=== PATIENT | male | born 1970 | race Caucasian/White ===

== ENCOUNTER 2024-09-07 14:24 | Emergency (ER) | payer MEDICARE, MEDICAID, SELFPAY ==
--- NOTE | ~2024-09-07 | CT_ITS ---
EXAMINATION: CT cervical spine wo con DATE: 09/07/2024 16:12 INDICATION: Head injury. TECHNIQUE: Computed tomography (CT) of the cervical spine was performed without intravenous contrast. Automated exposure control and iterative reconstruction technique were employed. The dose-length pro duct was 579.99 mGy-cm. COMPARISON: None FINDINGS: There is 9 degrees dextrocurvature of cervical spine. Vertebral body heights are normal. Th ere is moderately decreased disc height at C3-C4, mildly decreased disc height at C4-C5, and moderate ly decreased disc height at C5-C6 and C6-C7. There is developmental anterior and posterior fusion at C7-T1. There is mild chronic anterior wedging of T2 vertebral body. The following disc levels are spe cifically discussed: C2-C3: There is mild right and moderate left uncovertebral joint osteoarthritis. There is mild left f acet joint osteoarthritis. There is no neural foraminal stenosis. There is no central canal stenosis. C3-C4: There is moderate right and severe left uncovertebral joint osteoarthritis. There is mild bila teral facet joint osteoarthritis. There is moderate left neural foraminal stenosis. There is mild david tral canal stenosis. C4-C5: There is moderate right and severe left uncovertebral joint osteoarthritis. There is mild bila teral facet joint osteoarthritis. There is mild bilateral neural foraminal stenosis. There is mild ce ntral canal stenosis. C5-C6: There is moderate bilateral uncovertebral joint osteoarthritis. There is mild bilateral facet joint osteoarthritis. There is no neural foraminal stenosis. There is mild central canal stenosis. C6-C7: There is mild right and moderate left uncovertebral joint osteoarthritis. There is mild bilate ral facet joint osteoarthritis. There is mild left neural foraminal stenosis. There is mild central c anal stenosis. C7-T1: There is no uncovertebral joint hypertrophy. There is no facet joint osteoarthritis. There is no neural foraminal stenosis. There is no central canal stenosis. IMPRESSION: 1. No fracture. 2. Moderate cervical spondylosis. Reviewed, dictated and finalized at location A. ON JUNCTURE GRINDER
--- NOTE | ~2024-09-07 | CT_ITS ---
EXAMINATION: CT brain wo con DATE: 09/07/2024 16:13 INDICATION: fall, unknown [place] . TECHNIQUE: Computed tomography (CT) of the head was performed without intravenous contrast. The mA wa s adjusted according to patient size. Iterative reconstruction technique was employed. The dose-lengt h product was 681.00 mGy-cm. COMPARISON: 08/24/2024. FINDINGS: No acute intracranial hemorrhage or extra-axial fluid collection. No hydrocephalus, mass, or herniation. No acute ischemic infarct. Unremarkable dural venous sinus attenuation. No acute osseous abnormality. Bilateral maxillary retention cysts/polyps, mild left maxillary mucosal thickening, the remaining aer ated spaces are clear. Mild atrophy and chronic white matter change. Atherosclerotic intracranial calcification. Moderate ce rebellar atrophy. IMPRESSION: No acute intracranial process. Moderate cerebellar atrophy. Reviewed, dictated and finalized at location K. 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
--- NOTE | ~2024-09-07 | CT_ITS ---
EXAMINATION: CT thoracic lumbar wo con DATE: 09/07/2024 16:13 INDICATION: Back pain post fall TECHNIQUE: Computed tomography (CT) of the thoracic and lumbar spine was performed without intravenou s contrast. Automated exposure control and iterative reconstruction technique were employed. The dose -length product was 2289.51 mGy-cm. COMPARISON: Chest CT and lumbar spine CT both dated 08/24/2024 FINDINGS: Thoracic spine: Mild lower thoracic kyphosis with chronic mild anterior wedging at T7-T12. There is likely developmen jason anterior and posterior fusion at C7-T1. Multilevel moderate disc height loss at the majority leve ls throughout the thoracic spine with mild disc height loss at a few of the remaining levels. There a re bridging osteophytes at multiple levels consistent with diffuse idiopathic skeletal hyperostosis ( DISH). No acute fracture in the spine. Multiple chronic posterior right rib fractures which are in v arying degrees of healing. Is also an old healed fractures of the posterior left eighth-10th ribs. Un changed small left pleural effusion with thickening of the parietal pleura and associated peripheral atelectasis/scarring at the left lower lobe and lingula. Lumbar spine: 7 degrees lumbar levocurvature. Sagittal alignment is normal. Vertebral body heights are normal. No a cute fracture. Disc heights are normal. 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 Multilevel mild to moderate lumbar facet osteoarthritis and mild to moderate associated neural foraminal stenosis at a few levels . See prior lumbar spine report for level by level analysis. There is fusion across the bilateral sac roiliac joints. 3 mm left renal stone. IMPRESSION: 1. Moderate thoracic and mild lumbar spondylosis. No acute osseous abnormality. 2. Chronic bilateral rib fractures some of which on the right are in varying degrees of healing. No a cute osseous abnormality in the thoracic or lumbar spine. Reviewed, dictated and finalized at location A. OARD INSTRUMENT TUNER IMPRESSION: 1. Moderate thoracic and mild lumbar spondylosis. No acute osseous abnormality. 2. Chronic bilateral rib fractures some of which on the right are in varying de grees of healing. No acute osseous abnormality in the thoracic or lumbar spine.
[2024-09-07 14:29] VITALS: BP 160/77; PULSE 83; RESP 16; TEMP 36.3; O2SAT 100
--- NOTE | 2024-09-07 15:20 | ED_ITS ---
HPI - Back Pain/Injury General Chief Complaint: Back Pain/Injury <Emely Castro PA-C - Last Filed: 09/07/24 15:34> Stated Complaint: fall-back pain <Emely Castro PA-C - Last Filed: 09/07/24 15:34> Time Seen by Provider: 09/07/24 15:20 <Emely Castro PA-C - Last Filed: 09/07/24 15:34> Focused HPI: Patient is a 54 y/o male, with PMH of bipolar disorder, epilepsy, CVA, who presents to the ED via EMS with report of a fall. Patient is a resident of [facility]. Is a poor historian. Reportedly had a ground level fall today in which he was using his walker and fell backwards. Patient states he lost his balance. Complains of pain to his mid to lower back. Unsure if he hit his head. Denies LOC. Denies any other injuries. No blood thinners noted on med rec. GENERAL: Chronically ill appearing, appears older than stated age, morbidly obese, and in no acute distress. HEAD: Normocephalic, atraumatic. CHEST: Clear to auscultation. ?No respiratory distress. HEART: Regular rate and rhythm.? NEURO: ?Alert and oriented x2-3, unsure of year, knows it is August. No appreciable gross focal deficits. Moves all extremities equally. Intermittently somnolent. Patient screened in triage and initial orders placed.? ?Additional care and disposition to be based upon?diagnostic testing and treatment. <Emely Castro PA-C - Last Filed: 09/07/24 15:34> Source: patient, EMS and RN notes reviewed <Emely Castro PA-C - Last Filed: 09/07/24 15:34> Mode of arrival: EMS <Emely Castro PA-C - Last Filed: 09/07/24 15:34> Limitations: no limitations and other (poor historian) <Emely Castro PA-C - Last Filed: 09/07/24 15:34> History of Present Illness HPI Narrative: Agree with the above HPI <Dorian Olson MD - Last Filed: 09/07/24 21:30> Related Data Home Medications: Home Medications ?Medication ?Instructions ?Recorded ?Confirmed ?Last Taken ?Type acetaminophen 325 mg tablet (Mapap 325 mg PO Q6H PRN 04/28/20 Unknown History (acetaminophen)) albuterol sulfate 90 mcg/actuation 1 inh inhalation Q4H 04/28/20 Unknown History aerosol inhaler (Ventolin HFA) brimonidine 0.1 % eye drops 1 drp ophthalmic (eye) Q8H 04/28/20 Unknown History (Alphagan P) buspirone 15 mg tablet 15 mg PO BID 04/28/20 Unknown History clobazam 10 mg tablet 10 mg PO BID 04/28/20 Unknown History divalproex 500 mg tablet,delayed 500 mg PO Q12H 04/28/20 Unknown History release docusate sodium 100 mg tablet 100 mg PO BID 04/28/20 Unknown History duloxetine 60 mg capsule,delayed 60 mg PO DAILY 04/28/20 Unknown History release ergocalciferol (vitamin D2) 50 mcg 50 mcg PO DAILY 04/28/20 Unknown History (2,000 unit) capsule ibuprofen 800 mg tablet 800 mg PO TID 04/28/20 Unknown History ketoconazole 2 % topical cream 1 applic topical BID 04/28/20 Unknown History lamotrigine 25 mg tablet 75 mg PO BID 04/28/20 Unknown History latanoprost 0.005 % eye drops 1 drp ophthalmic (eye) DAILY 04/28/20 Unknown History lubiprostone 24 mcg capsule 24 mcg PO BID 04/28/20 Unknown History (Amitiza) nystatin 100,000 unit/mL oral 1 ml PO DAILY 04/28/20 Unknown History suspension omeprazole 20 mg capsule,delayed 20 mg PO DAILY 04/28/20 Unknown History release oxcarbazepine 600 mg tablet 600 mg PO BID 04/28/20 Unknown History polyethylene glycol 3350(bulk) ea miscellaneous 04/28/20 Unknown History (Base B, Polyethylene Glycol 3350 granules) pravastatin 10 mg tablet 10 mg PO DAILY 04/28/20 Unknown History risperidone 1 mg tablet (Risperdal) 1 mg PO BID 04/28/20 Unknown History triamcinolone acetonide 0.1 % 1 applic dental BID 04/28/20 Unknown History dental paste varenicline tartrate 0.5 mg tablet 0.5 mg PO DAILY 04/28/20 Unknown History (Chantix) <Emely Castro PA-C - Last Filed: 09/07/24 15:34> Allergies/Adverse Reactions: Allergies Allergy/AdvReac Type Severity Reaction Status Date / Time No Known Allergies Allergy Verified 09/07/24 15:49 <Emely Castro PA-C - Last Filed: 09/07/24 15:34> Review of Systems Review of Systems: All systems reviewed & are unremarkable except as noted in HPI and below <Dorian Olson MD - Last Filed: 09/07/24 21:30> Exam Narrative: APPEARANCE: Well appearing, no pain, no distress, well-nourished. HEAD: normocephalic, atraumatic. EYES: PERRLA/EOMI, conjunctivae clear. NOSE: Normal no drainage EARS:TMS clear with good light reflex. THROAT: Pharynx clear, no exudate. NECK: Supple. No adenopathy, no masses. RESPIRATORY: Airway patent, respirations nonlabored. Clear to auscultation bilaterally, no rales, rhonchi, wheezing. CARDIOVASCULAR: Regular rate and rhythm without murmurs rubs or gallops. ABDOMINAL: Soft, nontender, nondistended, normal bowel sounds MUSCULOSKELETAL: Moves all extremities. Strength/ROM intact, No edema, No calf tenderness. NEURO: Alert. Cranial nerves II through XII intact. Grossly intact SKIN: Warm, dry. Normal Color <Dorian Olson MD - Last Filed: 09/07/24 21:30> Course Vital Signs Vital signs: Vital Signs Temperature 97.3 F L 09/07/24 14:29 Pulse Rate 83 09/07/24 14:29 Respiratory Rate 16 09/07/24 14:29 Blood Pressure 160/77 H 09/07/24 14:29 Pulse Oximetry 100 09/07/24 14:29 Temperature 97.3 F L 09/07/24 14:29 Pulse Rate 77 09/07/24 18:38 Respiratory Rate 20 09/07/24 18:38 Blood Pressure 161/91 H 09/07/24 18:38 Pulse Oximetry 98 09/07/24 18:38 <Emely Castro PA-C - Last Filed: 09/07/24 15:34> Vital Signs Temperature 97.3 F L 09/07/24 14:29 Pulse Rate 83 09/07/24 14:29 Respiratory Rate 16 09/07/24 14:29 Blood Pressure 160/77 H 09/07/24 14:29 Pulse Oximetry 100 09/07/24 14:29 Temperature 97.3 F L 09/07/24 14:29 Pulse Rate 77 09/07/24 18:38 Respiratory Rate 20 09/07/24 18:38 Blood Pressure 161/91 H 09/07/24 18:38 Pulse Oximetry 98 09/07/24 18:38 <Dorian Olson MD - Last Filed: 09/07/24 21:30> MDM - Back Pain/Injury MDM Narrative Medical decision making narrative: MSE by ANGIE in triage. <Emely Castro PA-C - Last Filed: 09/07/24 15:34> MSE by ANGIE in triage. 54-year-old male present to the emergency department for evaluation after having a mechanical fall. Patient was able to ambulate at his baseline with a walker. Imaging was negative for acute fracture dislocation. Patient will be discharged back to his care facility. <Dorian Olson MD - Last Filed: 09/07/24 21:30> Differential Diagnosis Differential diagnosis: Likely lumbar radiculopathy, sciatica, strain of lumbar region, pyelonephritis and thoracic back pain <Dorian Olson MD - Last Filed: 09/07/24 21:30> Imaging Data Radiologist's impression: Impressions Head CT 09/07/24 16:14 IMPRESSION: No acute intracranial process. Moderate cerebellar atrophy. Cervical Spine CT 09/07/24 16:15 IMPRESSION: 1. No fracture. 2. Moderate cervical spondylosis. Thoracic/Lumbar Spine CT 09/07/24 16:20 IMPRESSION: 1. Moderate thoracic and mild lumbar spondylosis. No acute osseous abnormality. 2. Chronic bilateral rib fractures some of which on the right are in varying degrees of healing. No acute osseous abnormality in the thoracic or lumbar spine. <Dorian Olson MD - Last Filed: 09/07/24 21:30> Discharge Plan Discharge Clinical Impression: Back pain <Emely Castro PA-C - Last Filed: 09/07/24 15:34> Patient Disposition: Home, Self-Care <MONICA Cordon Last Filed: 09/07/24 15:34> Condition: Stable <MONICA Cordon Last Filed: 09/07/24 15:34> Instructions: Antibiotic Form, Back Pain (ED) <MONICA Cordon Last Filed: 09/07/24 15:34> Additional Instructions: Continue to use your walker when ambulating. Have close follow-up with your primary care physician <MONICA Cordon Last Filed: 09/07/24 15:34> Patient Language: Mohawk <MONICA Cordon Last Filed: 09/07/24 15:34> Prescriptions: No Action polyethylene glycol 3350(bulk) [Base B,Polyethylene [id number]] Granules miscellaneous albuterol sulfate [Ventolin HFA] 90 mcg/actuation HFA aerosol inhaler 1 inh inhalation Q4H ibuprofen 800 mg tablet 800 mg PO TID acetaminophen [Mapap (acetaminophen)] 325 mg tablet 325 mg PO Q6H PRN latanoprost 0.005 % drops 1 drp ophthalmic (eye) DAILY pravastatin 10 mg tablet 10 mg PO DAILY risperidone [Risperdal] 1 mg tablet 1 mg PO BID triamcinolone acetonide 0.1 % paste 1 applic dental BID Rx Instructions: use after food and/or drink and/or oral hygiene Alphagan P 0.1 % drops 1 drp ophthalmic (eye) Q8H oxcarbazepine 600 mg tablet 600 mg PO BID Chantix 0.5 mg tablet 0.5 mg PO DAILY Rx Instructions: administer on days 1, 2, and 3 of therapy clobazam 10 mg tablet 10 mg PO BID divalproex 500 mg tablet,delayed release (DR/EC) 500 mg PO Q12H docusate sodium 100 mg tablet 100 mg PO BID ketoconazole 2 % cream 1 applic topical BID lamotrigine 25 mg tablet 75 mg PO BID nystatin 100,000 unit/mL suspension 1 ml PO DAILY Rx Instructions: swish and swallow duloxetine 60 mg capsule,delayed release(DR/EC) 60 mg PO DAILY omeprazole 20 mg capsule,delayed release(DR/EC) 20 mg PO DAILY ergocalciferol (vitamin D2) 50 mcg (2,000 unit) capsule 50 mcg PO DAILY Amitiza 24 mcg capsule 24 mcg PO BID buspirone 15 mg tablet 15 mg PO BID <Emely Castro PA-C - Last Filed: 09/07/24 15:34> Follow-up/Referrals: Yves,Ebonie Argueta MD [Primary Care Provider] - <Emely Castro PA-C - Last Filed: 09/07/24 15:34>
--- OUTSIDE RECORDS SUMMARY | 2024-09-07 17:10 | XMS_ITS | Clinical Summary ---
Author Organization [facility] Address [address] [place] [address] Care Team Providers Care Schedule Announcer Name Role Phone Star Pinto NP Primary Care Provider [phone] Allergies Active Allergy Reactions Criticality Noted Date Comments Prochlorperazine Unknown 05/26/2024 Listed on halfway papers. [place] Unknown 11/23/2021 Medications duloxetine 60 MG capsule Take 1 capsule (60 mg total) by mouth daily. Active omeprazole 20 MG capsule Take 1 capsule (20 mg total) by mouth daily. Active latanoprost 0.005 % ophthalmic solution Place 1 drop into both eyes nightly at bedtime. Active albuterol sulfate HFA 108 (90 Base) MCG/ACT inhaler Inhale 2 puffs into the lungs every 4 (four) hours as needed for Wheezing or Shortness of breath. Active polyethylene glycol packet Take 240 mLs (17 g total) by mouth daily as needed for Constipation. Dissolve powder in 240 mL water Active acetaminophen 325 MG tablet Take 2 tablets (650 mg total) by mouth every 4 (four) hours as needed for Pain. Active Vitamin D, Ergocalciferol, 50794 units capsuleIndicatio ns:Takes on . Take 1 capsule (1.25 mg total) by mouth once a week. Indications: Takes on . On Active brimonidine 0.1 % Solution Place 1 drop into both eyes 3 (three) times a day. Active OXcarbazepine 600 MG Tab tablet Take 1 tablet (600 mg total) by mouth 3 (three) times daily. Active busPIRone 15 MG tablet Take 1 tablet (15 mg total) by mouth 2 (two) times daily with meals. 9 Active cloBAZam 10 MG tablet Take 0.5 tablets (5 mg total) by mouth every morning. 2 Active lamoTRIgine (LAMICTAL) 100 MG tablet Take 1 tablet (100 mg total) by mouth 2 (two) times daily. Active nystatin (MYCOSTATIN) cream Apply topically 2 (two) times a day. Mix with Ottoniel's Vaporub and apply to feet Active vitamin C (ASCORBIC ACID) 500 MG tablet Take 1 tablet (500 mg total) by mouth 2 (two) times daily. Active docusate sodium (COLACE) 100 MG capsule Take 1 capsule (100 mg total) by mouth 2 (two) times daily. Active linaCLOtide (LINZESS) 145 MCG capsule Take 1 capsule (145 mcg total) by mouth every morning before breakfast. Take on empty stomach at least 30 minutes prior to the first meal of the day. Swallow whole. Do not open capsule or chew. Active Multiple Vitamin (MULTIVITAMIN) Tab Take 1 tablet by mouth daily. 4 Active risperiDONE (RISPERDAL) 1 MG tablet Take 1 tablet (1 mg total) by mouth 3 (three) times daily. 4 Active losartan (COZAAR) 25 MG tablet Take 1 tablet (25 mg total) by mouth daily. 30 tablet 4 Active divalproex ER (DEPAKOTE) 500 MG 24 hr tablet Take 1 tablet (500 mg total) by mouth 2 (two) times a day. Total dose = 750 mg twice daily 4 Active amLODIPine (NORVASC) 10 MG tablet Take 1 tablet (10 mg total) by mouth daily. 30 tablet 3 4 Active aspirin EC (ECOTRIN) 81 MG tablet Take 1 tablet (81 mg total) by mouth daily. 30 tablet 3 4 Active atorvastatin (LIPITOR) 40 MG tablet Take 1 tablet (40 mg total) by mouth daily. 30 tablet 3 4 Active Additional Information Patient taking differently:40 mg OralDaily with supper, Reported on 05/30/2024 budesonide-formo terol (SYMBICORT) 80-4.5 MCG/ACT inhalerIndicatio ns:Shortness of breath Inhale 2 puffs into the lungs 2 (two) times daily. Rinse and spit after use 10.2 g 3 Active chlorhexidine (DIEGO-HEX 4) 4 % Solution Apply topically daily. Cleanse third toe on left foot daily. Active ALGINATE, SILVER IMPREGNATED - WOUND CARE, DME, 1 Package by Does not apply route daily. Apply to left great toe daily. Cover with gauze then secure with tape. Active cloBAZam (ONFI) 10 MG tablet Take 1 tablet (10 mg total) by mouth daily before supper. Active divalproex ER (DEPAKOTE) 250 MG 24 hr tablet Take 1 tablet (250 mg total) by mouth 2 (two) times a day. Total dose = 750 mg twice daily Active ibuprofen (MOTRIN) 600 MG tablet Take 1 tablet (600 mg total) by mouth every 6 (six) hours as needed for Pain. Not to exceed 4 doses in 24 hours. Active neomycin-bacitra rosa elena-polymyxin (NEOSPORIN) 3.5-400-5000 ointment Apply topically daily. Apply a small amount to left great toe and left 3rd toe daily. Isak left great toe and 2nd toe at all times due to fracture. Active hydrogen peroxide 3 % external solution Apply topically daily. Cleanse left great toe daily. Active lidocaine 4 % patch Place 1 patch onto the skin daily. Remove & Discard patch within 12 hours or as directed by MD 30 patch Active sodium chloride 1 GM tablet Take 2 tablets (2 g total) by mouth 3 (three) times daily with meals. 90 tablet 4 Active Active Problems Problem Noted Date Diagnosed Date Hyponatremia 06/01/2024 Generalized weakness 05/30/2024 Lethargy 09/30/2023 Severe sepsis ([facility]) 06/05/2023 Seizure ([facility]) 03/07/2023 Pneumonia 03/04/2023 Generalized anxiety disorder 11/15/2021 Impaired cognition 11/15/2021 Moderate intellectual disability 11/15/2021 Overview (06/06/2023): April 2023 Regulatory Update Open-angle glaucoma 11/15/2021 Fracture treatment convalescence or palliative c are 08/03/2021 Right tibial fracture 06/17/2021 Closed fracture of proximal end of left tibia with routine healing 06/16/2021 Fall 06/16/2021 Tremor 01/15/2021 Macrocytosis 09/14/2020 Localization-related (focal) (partial) symptomatic epilepsy and epileptic syndromes with complex partial seizures, intractable, without status epilepticus ([facility]) 03/24/2019 Bipolar affective ([facility]) 08/05/2013 Encounters Date Type Department Care Team Description 05/30/2024 3:06 PM NOCTURNIST PHYSICIAN - 06/12/2024 12:50 PM NOCTURNIST PHYSICIAN Hospital Encounter [facility] [address] [place] [address] Keya Beverly PA Islam, Maaroof, MD Wolf, Brittany, PA-C Smith, Marissa L, NP Conti, John R, PA-C Martens, Jennifer L, YANA Fall Discharge Disposition: Jail Facility from Last 3 Months Immunizations Name Administration Dates Next Due Fluzone Intradermal Quad (IIV4) 05/02/2019 Influenza (Afluria - Preservative Free) 06/24/20 17 Influenza (Generic) 07/31/2016 Influenza Adult (Generic) 04/17/2019,04/17/2018, 04/25/2015 Tdap (Adacel) 07/31/2016 Tdap (Boostrix) 03/30/2022,11/20/2021,08/13/2017 Social History Tobacco Use Types Packs/Day Years Used Date Smoking Tobacco: Former Cigarettes 1 5 1 08/16/2015 - 06/16/2021 Smokeless Tobacco: Never Tobacco Cessation:Counseling Given: Yes Alcohol Use Standard Drinks/Week Comments No 0 (1 standard drink = 0.6 oz pur e alcohol) B1300 Health Literacy Answer Date Recor ded How often do you need to hav e someone help you when you read instructions, pamphlets, or other written material from your doctor or pharmacy? Often 05/30/2024 [facility] Utilities Answer Date Recorded In the past 12 months has th e [employer], gas, oil, or water company threatened to shut off services in your home? No 05/30/2024 Humiliation, Afraid, Rape, and Kick questionnair e Answer Date Recorded Within the last year, have y ou been afraid of your partner or ex-partner? No 05/30/2024 Within the last year, have y ou been humiliated or emotionally abused in other ways by your partner or ex-partner? No Within the last year, have y ou been kicked, hit, slapped, or otherwise physically hurt by your partner or ex-partner? No 05/30/2024 Within the last year, have y ou been raped or forced to have any kind of sexual activity by your partner or ex-partner? No 05/30/2024 Social Connection and Isolation Panel [NHANES] A nswer Date Recorded In a typical week, how many times do you talk on the phone with family, friends, or neighbors? Twice a week 05/30/2024 How often do you get together with friends or re latives? Twice a week 05/30/2024 How often do you attend cheondoism or voodoo serv ices? Never 05/30/2024 Do you belong to any clubs o r organizations such as cheondoism groups, unions, fraternal or athletic groups, or school groups? No 05/30/2024 How often do you attend meet ings of the clubs or organizations you belong to? Never 05/30/2024 Are you , , di vorced, , never , or living with a partner? Never 05/30/2024 AUDIT-C Answer Date Recorded Q1: How often do you have a drink containing alcohol? Never 05/30/2024 Q2: How many drinks containi ng alcohol do you have on a typical day when you are drinking? Patient does not drink Q3: How often do you have si x or more drinks on one occasion? Never 05/30/2024 Overall Financial Resource Strain (CARDIA) Answe r Date Recorded How hard is it for you to pa y for the very basics like food, housing, medical care, and heating? Not hard at all 05/30/2024 PHQ-2 Answer Date Recorded Patient Health Questionnaire-2 Score 0 04/16/2024 [facility] - Occupational Stress Questionnaire Answer Date Recorded Do you feel stress - tense, restless, nervous, or anxious, or unable to sleep at night because your mind is troubled all the time - these days? Not at all 05/30/2024 Exercise Vital Sign Answer Date Recorde d On average, how many days pe r week do you engage in moderate to strenuous exercise (like a brisk walk)? 0 days 05/30/2024 On average, how many minutes do you engage in exercise at this level? 0 min 05/30/2024 Hunger Vital Sign Answer Date Recorded Within the past 12 months, y ou worried that your food would run out before you got the money to buy more. Never true 05/30/20 24 Within the past 12 months, t he food you bought just didn't last and you didn't have money to get more. Never true 05/30/2024 PRAPARE - Transportation Answer Date Re corded In the past 12 months, has l ack of transportation kept you from medical appointments or from getting medications? No 03/2024 In the past 12 months, has l ack of transportation kept you from meetings, work, or from getting things needed for daily living? No 05/30/2024 Housing Stability Vital Sign Answer Dennis e Recorded In the last 12 months, was t here a time when you were not able to pay the mortgage or rent on time? No 09/30/2023 In the last 12 months, how many places have you lived? 1 09/30/2023 In the last 12 months, was t here a time when you did not have a steady place to sleep or slept in a longterm (including now)? No 09/30/2023 Housing Stability Vital Sign Answer Dennis e Recorded In the last 12 months, was t here a time when you were not able to pay the mortgage or rent on time? No 05/30/2024 In the past 12 months, how m any times have you moved where you were living? 0 05/30/2024 At any time in the past 12 m [place], were you homeless or living in a longterm (including now)? No 05/30/2024 Sex and Gender Information Value Date Recorded Sex Assigned at Male 06/06/2023 3:22 AM NOCTURNIST PHYSICIAN Legal Sex Male 5:06 PM CDT Gender Identity Male 06/06/2023 3:22 AM NOCTURNIST PHYSICIAN Sexual Orientation Not on file Last Filed Vital Signs Vital Sign Reading Time Taken Comments Blood Pressure 135/67 06/12/2024 12:00 PM NOCTURNIST PHYSICIAN Pulse 66 06/12/2024 12:00 PM NOCTURNIST PHYSICIAN Temperature 36.9 C (98.4 F) 06/12/2024 12:00 PM NOCTURNIST PHYSICIAN Respiratory Rate 19 06/12/2024 12:00 PM NOCTURNIST PHYSICIAN Oxygen Saturation 99% 06/12/2024 12:00 PM NOCTURNIST PHYSICIAN Inhaled Oxygen Concentration - - Weight 154 kg (339 lb 8.1 oz) 06/08/2024 5:00 AM NOCTURNIST PHYSICIAN Height 175.3 cm (5' 9 ) 05/30/2024 3:09 PM NOCTURNIST PHYSICIAN Body Mass Index 50.14 05/30/2024 3:09 PM NOCTURNIST PHYSICIAN Plan of Treatment Upcoming Encounters Date Type Department Care Team (Late st Contact Info) Description 10/22/2024 10:40 AM CDT Office Visit [facility] [address] [place] [address] Star Robles MD [address] [place] [address] 11/18/2024 10:00 AM CDT Office Visit [facility] [address] [place] [address] Bayron Roa MD [address] [facility] [place] [address] Health Maintenance Due Date Last Done Comments Colorectal Cancer Screening Colonoscopy (10 Years) 1972 Kidney Health Evaluation 1972 Annual Physical 1975 Pneumococcal Vaccine: Pediatrics (0 to 5 Years) and At-Risk Patients (6 to 64 Years) (1 of 2 - PCV) 1978 Diabetes: Retinopathy Eye Exam 1990 Hepatitis C 1990 Hepatitis B Vaccines (1 of 3 - 19+ 3-dose series) 1991 Zoster Vaccines (1 of 2) 2022 COVID-19 Vaccine ( - season) 2024 Influenza Adult (#1) 2024 05/02/2019, 04/17/2019, 04/17/2018, Additional history exists PHQ-2 (Physician [place]) 07/22/2024 04/16/2024 Hemoglobin A1C 11/28/2024 05/31/2024, 09/30/2023 PHQ-2 (Physician [place]) 04/16/2025 04/16/2024 Lipid Panel 05/31/2025 05/31/2024, 12/21, 10/01/2023 DTaP, Tdap and Td Vaccines (5 - Td or Tdap) 03/30/2032 03/30/2022, 11/20/2021, 08/13/2017, Additional history exists Meningococcal B Vaccine Aged Out No l onger eligible based on patient's age to complete this topic Meningococcal Vaccine Aged Out No bo yesy eligible based on patient's age to complete this topic RSV Immunizations Under 20 Months Aged Out No longer eligible based on patient's age to complete this topic Goals Goal Patient Goal Type Associated Problems Recent Progress Patient-Stated? Author Family - family caregiver with be involved in care transitions and discharge planning Lifestyle No Tami Choi, HOTEL RESERVATION AGENT Safety Patient/family will have appropriate support at home upon discharge Lifestyle No Edin Peters, hose seamer Procedure Name Priority Date/Time Associated Diagnosis Comments BASIC METABOLIC PANEL Routine 06/12/2024 4:45 AM NOCTURNIST PHYSICIAN CBC W/DIFF AUTOMATED Routine 06/12/2024 4:45 AM NOCTURNIST PHYSICIAN BASIC METABOLIC PANEL Routine 06/11/2024 5:30 AM NOCTURNIST PHYSICIAN CBC W/DIFF AUTOMATED Routine 06/11/2024 5:30 AM NOCTURNIST PHYSICIAN BASIC METABOLIC PANEL Routine 06/10/2024 5:00 AM NOCTURNIST PHYSICIAN CBC W/DIFF AUTOMATED Routine 06/10/2024 5:00 AM NOCTURNIST PHYSICIAN CBC W/DIFF AUTOMATED Routine 06/09/2024 5:10 AM NOCTURNIST PHYSICIAN BASIC METABOLIC PANEL Routine 06/09/2024 5:10 AM NOCTURNIST PHYSICIAN CBC W/DIFF AUTOMATED Routine 06/08/2024 4:20 AM NOCTURNIST PHYSICIAN BASIC METABOLIC PANEL Routine 06/08/2024 4:20 AM NOCTURNIST PHYSICIAN CBC W/DIFF AUTOMATED Routine 06/07/2024 4:00 AM NOCTURNIST PHYSICIAN BASIC METABOLIC PANEL Routine 06/07/2024 4:00 AM NOCTURNIST PHYSICIAN LIPID PANEL Routine 05/31/2024 8:35 AM NOCTURNIST PHYSICIAN HEMOGLOBIN, GLYCOSYLATED Routine 05/31/2024 8:35 AM NOCTURNIST PHYSICIAN from Last 3 Months or Most Recently Relevant to Health Maintenance Results * (ABNORMAL) BASIC METABOLIC PANEL (06/12/2024 4:45 AM NOCTURNIST PHYSICIAN) Only the most recent of6 resultswithin the time period is included. [facility] Signature GLUCOSE 83 70 - 99 MG/DL 06/12/2024 5:37 AM NOCTURNIST PHYSICIAN [facility] BUN 18 7 - 18 MG/DL 06/12/2024 5:37 AM NOCTURNIST PHYSICIAN [facility] CREATININE S/P/B 0.71 0.7 - 1.3 MG/DL 06/12/2024 5:37 AM NOCTURNIST PHYSICIAN [facility] SODIUM S/P/B 127(L) 136 - 145 MMOL/L 06/12/2024 5:37 AM NOCTURNIST PHYSICIAN [facility] POTASSIUM S/P/B 4.5 3.5 - 5.1 MMOL/L 06/12/2024 5:37 AM [facility] CHLORIDE S/P/B 95(L) 97 - 115 MMOL/L 06/12/2024 5:37 AM [facility] CO2 25.6 21 - 32 MMOL/L 06/12/2024 5:37 AM [facility] CALCIUM S/P/B 8.8 8.5 - 10.1 MG/DL 06/12/2024 5:37 AM [facility] ANION GAP 6.4 2 - 10 MMOL/L 06/12/2024 5:37 AM [facility] BUN CREATININE RATIO 25.3 6 - 26 06/12/2024 5:37 AM [facility] GFR ESTIMATE >90 >90 ML/MIN/1.7 3 M2 06/12/2024 5:37 AM [facility] Comment: NOTE: eGFR is not calculated for patients <18 years of age or gender unknown. This is an estimated GFR calculation using the new CKD EPI creatinine equation without race and so does not require a correction factor for race. This estimated GFR should not be used for calculating drug doses. 06/12/2024 4:45 AM NOCTURNIST PHYSICIAN Tahmina Dominique PA-C LABORATORY Final Result [facility] [address] [place] [address], * (ABNORMAL) CBC W/DIFF AUTOMATED (06/12/2024 4:45 AM NOCTURNIST PHYSICIAN) Only the most recent of6 resultswithin the time period is included. WBC 8.29 4.5 - 11.0 x10'3/uL 06/12/2024 5:56 AM NOCTURNIST PHYSICIAN [facility] RBC 3.49(L) 4.70 - 6.10 x10'6/uL 06/12/2024 5:56 AM [facility] HGB 10.3(L) 14.0 - 18.0 G/DL 06/12/2024 5:56 AM [facility] HCT 31.7(L) 43.0 - 54.0 % 06/12/2024 5:56 AM [facility] MCV 90.8 80.0 - 94.0 FL 06/12/2024 5:56 AM [facility] MCH 29.5 27.0 - 31.0 PG 06/12/2024 5:56 AM [facility] MCHC 32.5 32.0 - 36.0 G/DL 06/12/2024 5:56 AM [facility] RDW 15.9(H) 11.5 - 14.5 % 06/12/2024 5:56 AM [facility] PLT 240 130 - 400 x10'3/uL 06/12/2024 5:56 AM [facility] MPV 8.0(L) 9.3 - 12.2 FL 06/12/2024 5:56 AM [facility] DIFFERENTIAL TYPE AUTOMATED DIFFERENTIAL 06/12/2024 5:56 AM [facility] NEUTROPHILS % 52.7 % 06/12/2024 5:56 AM [facility] LYMPHOCYTES % 29.1 % 06/12/2024 5:56 AM [facility] MONOCYTES % 13.1 % 06/12/2024 5:56 AM [facility] EOSINOPHILS 4.1 % 06/12/2024 5:56 AM [facility] BASOPHILS 0.5 % 06/12/2024 5:56 AM [facility] IMMATURE GRANS % 0.5 % 06/12/20 5:56 AM NOCTURNIST PHYSICIAN [facility] ABS. NEUTROPHILS 4.37 1.80 - 7.70 x10'3/uL 06/12/2024 5:56 AM [facility] ABS. LYMPHOCYTES 2.41 1.00 - 4.80 x10'3/uL 06/12/2024 5:56 AM [facility] ABS. MONOCYTES 1.09(H) 0.30 - 0.82 x10'3/uL 06/12/2024 5:56 AM [facility] ABS. EOSINOPHILS 0.34 0.04 - 0.54 x10'3/uL 06/12/2024 5:56 AM [facility] ABS. BASOPHILS 0.04 0.01 - 0.08 x10'3/uL 06/12/2024 5:56 AM [facility] ABS. IMMATURE GRANULOCYTES 0.04 0.00 - 0.49 x10'3/uL 06/12/2024 5:56 AM [facility] 06/12/2024 4:45 AM NOCTURNIST PHYSICIAN Tahmina Dominique PA-C LABORATORY Final Result [facility] [address] [place] [address], * HEMOGLOBIN, GLYCOSYLATED (05/31/2024 8:35 AM NOCTURNIST PHYSICIAN) HGB A1C 5.6 <5.7 % 05/31/2024 9:25 AM [facility] Comment: ADA GUIDELINES 2010 5.7 TO 6.4% INCREASED RISK OF DIABETES > OR = 6.5% CONSISTENT WITH DIABETES ESTIMATED AVG GLUCOSE 114 mg/dL 05/31/2024 9:25 AM [facility] 05/31/2024 8:35 AM NOCTURNIST PHYSICIAN Heber Rodrigez MD LABORATORY Final Result [facility] [address] [place] [address], * LIPID PANEL (05/31/2024 8:35 AM NOCTURNIST PHYSICIAN) CHOLESTEROL 149 <200 MG/DL 05/31/2024 9:37 AM [facility] TRIGLYCERIDES 135 <150 MG/DL 05/31/2024 9:37 AM [facility] HDL 67 >40.0 MG/DL 05/31/2024 9:37 AM [facility] LDL (CALCULATED) 55 <100 MG/DL 05/31/20 9:37 AM [facility] NON HDL CHOLESTEROL 82 <130 MG/DL 05/31 9:37 AM [facility] CHOL/HDL RATIO 2.2 0.0 - 4.5 05/31/2024 9:37 AM [facility] VLDL CALCULATION 27 5 - 55 MG/DL 05/31/2024 9:37 AM [facility] LIPID INTERPRETATION 05/31/2024 9:37 AM [facility] Comment: NIH CONCENSUS REPORT RECOMMENDATIONS: ADULT CHILD LOW RISK: CHOLESTEROL <200 <170 TRIGLYCERIDE <150 --- HDL >=60 --- LDL <100 <110 BORDERLINE: CHOLESTEROL 200-239 170-199 TRIGLYCERIDE 150-199 --- HDL 40-59 --- LDL 100-159 110-129 HIGH RISK: CHOLESTEROL >=240 >=200 TRIGLYCERIDE >=200 --- HDL <40 --- LDL >=160 >=130 05/31/2024 8:35 AM NOCTURNIST PHYSICIAN Heber Rodrigez MD LABORATORY Final Result [facility] [address] [place] [address], [place] [phone] from Last 3 Months or Most Recently Relevant to Health Maintenance Insurance MEDICARE MEDICAID Advance Directives * Full Code (Latest Code Status on File) Date Activated Date Inactivated Comments 05/30/2024 11:05 PM 06/12/2024 3:01 PM * Full Code Date Activated Date Inactivated Comments 09/30/2023 4:39 PM 10/02/2023 4:52 PM * Full Code Date Activated Date Inactivated Comments 06/05/2023 10:26 PM 06/20/2023 8:27 PM * Full Code Date Activated Date Inactivated Comments 03/07/2023 3:00 PM 03/08/2023 4:03 PM * Full Code Date Activated Date Inactivated Comments 03/04/2023 6:49 PM 03/07/2023 1:00 PM Care Teams Schedule Announcer Relationship Specialty Start Date End Date Star Pinto NP [address] [place] [id number] PCP - General Nurse Practitioner Family 05/08/24
--- OUTSIDE RECORDS SUMMARY | 2024-09-07 18:16 | XMS_ITS | Clinical Summary ---
Author Organization [facility] Address [address] [place] [address] Care Team Providers Care Hr Manager Name Role Phone Star Pinto NP Primary Care Provider [phone] Allergies Active Allergy Reactions Criticality Noted Date Comments Prochlorperazine Unknown 05/26/2024 Listed on half-way papers. [place] Unknown 11/23/2021 Medications duloxetine 60 MG capsule [...] needed for Pain. Active Vitamin D, Ergocalciferol, 17685 units capsuleIndicatio ns:Takes on . Take 1 [...] Generalized weakness 05/30/2024 Lethargy 09/30/2023 Severe sepsis ([facility]) 06/05/2023 Seizure ([facility]) 03/07/2023 Pneumonia 03/04/2023 Generalized anxiety disorder 11/15/2021 [...] complex partial seizures, intractable, without status epilepticus ([facility]) 03/24/2019 Bipolar affective ([facility]) 08/05/2013 Encounters Date Type Department Care Team Description 05/30/2024 3:06 PM BLADDER CLEANER - 06/12/2024 12:50 PM BLADDER CLEANER Hospital Encounter [facility] Med/Surg [address] [place] [address] Keya Beverly PA Islam, Maaroof, MD Wolf, Brittany, PA-C Smith, Marissa L, NP Conti, John R, PA-C Martens, Jennifer L, YANA Fall Discharge Disposition: Retirement Facility from Last 3 Months Immunizations Name [...] doctor or pharmacy? Often 05/30/2024 [facility] Utilities Answer Date Recorded In the past 12 months has th e [employer], gas, oil, or water company threatened to [...] week 05/30/2024 How often do you attend protestant or jewish serv ices? Never 05/30/2024 Do you belong to any clubs o r organizations such as protestant groups, unions, fraternal or athletic groups, or [...] Recorded Patient Health Questionnaire-2 Score 0 04/16/2024 [facility] - Occupational Stress Questionnaire Answer Date [...] place to sleep or slept in a assisted (including now)? No 09/30/2023 Housing Stability Vital Sign Answer Dennis e Recorded In the last 12 months, was t here a time when you were not able to pay the mortgage or rent on time? No 05/30/2024 In the past 12 months, how m any times have you moved where you were living? 0 05/30/2024 At any time in the past [facility], were you homeless or living in a assisted (including now)? No 05/30/2024 Sex and Gender Information Value Date Recorded Sex Assigned at Male 06/06/2023 3:22 AM BLADDER CLEANER Legal Sex Male 5:06 PM CDT Gender Identity Male 06/06/2023 3:22 AM BLADDER CLEANER Sexual Orientation Not on file Last Filed Vital Signs Vital Sign Reading Time Taken Comments Blood Pressure 135/67 06/12/2024 12:00 PM BLADDER CLEANER Pulse 66 06/12/2024 12:00 PM BLADDER CLEANER Temperature 36.9 C (98.4 F) 06/12/2024 12:00 PM BLADDER CLEANER Respiratory Rate 19 06/12/2024 12:00 PM BLADDER CLEANER Oxygen Saturation 99% 06/12/2024 12:00 PM BLADDER CLEANER Inhaled Oxygen Concentration - - Weight 154 kg (339 lb 8.1 oz) 06/08/2024 5:00 AM BLADDER CLEANER Height 175.3 cm (5' 9 ) 05/30/2024 3:09 PM BLADDER CLEANER Body Mass Index 50.14 05/30/2024 3:09 PM BLADDER CLEANER Plan of Treatment Upcoming Encounters Date Type Department Care Team (Late st Contact Info) Description 10/22/2024 10:40 AM CDT Office Visit [facility] Multispecialty Care - [facility] [address] [place] [address] Star Robles MD [address] [place] [address] 11/18/2024 10:00 AM CDT Office Visit [facility] [address] [place] [address] Bayron Roa MD [address] 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 Procedure Name Priority Date/Time Associated Diagnosis Comments BASIC METABOLIC PANEL Routine 06/12/2024 4:45 AM BLADDER CLEANER CBC W/DIFF AUTOMATED Routine 06/12/2024 4:45 AM BLADDER CLEANER BASIC METABOLIC PANEL Routine 06/11/2024 5:30 AM BLADDER CLEANER CBC W/DIFF AUTOMATED Routine 06/11/2024 5:30 AM BLADDER CLEANER BASIC METABOLIC PANEL Routine 06/10/2024 5:00 AM BLADDER CLEANER CBC W/DIFF AUTOMATED Routine 06/10/2024 5:00 AM BLADDER CLEANER CBC W/DIFF AUTOMATED Routine 06/09/2024 5:10 AM BLADDER CLEANER BASIC METABOLIC PANEL Routine 06/09/2024 5:10 AM BLADDER CLEANER CBC W/DIFF AUTOMATED Routine 06/08/2024 4:20 AM BLADDER CLEANER BASIC METABOLIC PANEL Routine 06/08/2024 4:20 AM BLADDER CLEANER CBC W/DIFF AUTOMATED Routine 06/07/2024 4:00 AM BLADDER CLEANER BASIC METABOLIC PANEL Routine 06/07/2024 4:00 AM BLADDER CLEANER LIPID PANEL Routine 05/31/2024 8:35 AM BLADDER CLEANER HEMOGLOBIN, GLYCOSYLATED Routine 05/31/2024 8:35 AM BLADDER CLEANER from Last 3 Months or Most Recently Relevant to Health Maintenance Results * (ABNORMAL) BASIC METABOLIC PANEL (06/12/2024 4:45 AM BLADDER CLEANER) Only the most recent of6 resultswithin the time period is included. [facility] Signature GLUCOSE 83 70 - 99 MG/DL 06/12/2024 5:37 AM BLADDER CLEANER [facility] BUN 18 7 - 18 MG/DL 06/12/2024 5:37 AM BLADDER CLEANER [facility] CREATININE S/P/B 0.71 0.7 - 1.3 MG/DL 06/12/2024 5:37 AM BLADDER CLEANER [facility] SODIUM S/P/B 127(L) 136 - 145 MMOL/L 06/12/2024 5:37 AM BLADDER CLEANER [facility] POTASSIUM S/P/B 4.5 3.5 - 5.1 MMOL/L 06/12/2024 5:37 AM [facility] CHLORIDE S/P/B 95(L) 97 - 115 MMOL/L 06/12/2024 5:37 AM [facility] CO2 25.6 21 - 32 MMOL/L 06/12/2024 5:37 AM [facility] CALCIUM S/P/B 8.8 8.5 - 10.1 MG/DL 06/12/2024 5:37 AM [facility] ANION GAP 6.4 2 - 10 MMOL/L 06/12/2024 5:37 AM [facility] BUN CREATININE RATIO 25.3 6 - 26 06/12/2024 5:37 AM [facility] GFR ESTIMATE >90 >90 ML/MIN/1.7 3 M2 06/12/2024 5:37 AM [facility] Comment: NOTE: eGFR is not calculated for patients <18 years of age or gender unknown. This is an estimated GFR calculation using the new CKD EPI creatinine equation without race and so does not require a correction factor for race. This estimated GFR should not be used for calculating drug doses. 06/12/2024 4:45 AM BLADDER CLEANER Tahmina Dominique PA-C LABORATORY Final Result [facility] [address] [place] [address], * (ABNORMAL) CBC W/DIFF AUTOMATED (06/12/2024 4:45 AM BLADDER CLEANER) Only the most recent of6 resultswithin the time period is included. WBC 8.29 4.5 - 11.0 x10'3/uL 06/12/2024 5:56 AM BLADDER CLEANER [facility] RBC 3.49(L) 4.70 - 6.10 x10'6/uL 06/12/2024 5:56 AM [facility] HGB 10.3(L) 14.0 - 18.0 G/DL 06/12/2024 5:56 AM [facility] HCT 31.7(L) 43.0 - 54.0 % 06/12/2024 5:56 AM [facility] MCV 90.8 80.0 - 94.0 FL 06/12/2024 5:56 AM [facility] MCH 29.5 27.0 - 31.0 PG 06/12/2024 5:56 AM [facility] MCHC 32.5 32.0 - 36.0 G/DL 06/12/2024 5:56 AM [facility] RDW 15.9(H) 11.5 - 14.5 % 06/12/2024 5:56 AM [facility] PLT 240 130 - 400 x10'3/uL 06/12/2024 5:56 AM [facility] MPV 8.0(L) 9.3 - 12.2 FL 06/12/2024 5:56 AM [facility] DIFFERENTIAL TYPE AUTOMATED DIFFERENTIAL 06/12/2024 5:56 AM [facility] NEUTROPHILS % 52.7 % 06/12/2024 5:56 AM [facility] LYMPHOCYTES % 29.1 % 06/12/2024 5:56 AM [facility] MONOCYTES % 13.1 % 06/12/2024 5:56 AM [facility] EOSINOPHILS 4.1 % 06/12/2024 5:56 AM [facility] BASOPHILS 0.5 % 06/12/2024 5:56 AM [facility] IMMATURE GRANS % 0.5 % 06/12/20 5:56 AM BLADDER CLEANER [facility] ABS. NEUTROPHILS 4.37 1.80 - 7.70 x10'3/uL 06/12/2024 5:56 AM [facility] ABS. LYMPHOCYTES 2.41 1.00 - 4.80 x10'3/uL 06/12/2024 5:56 AM [facility] ABS. MONOCYTES 1.09(H) 0.30 - 0.82 x10'3/uL 06/12/2024 5:56 AM [facility] ABS. EOSINOPHILS 0.34 0.04 - 0.54 x10'3/uL 06/12/2024 5:56 AM [facility] ABS. BASOPHILS 0.04 0.01 - 0.08 x10'3/uL 06/12/2024 5:56 AM [facility] ABS. IMMATURE GRANULOCYTES 0.04 0.00 - 0.49 x10'3/uL 06/12/2024 5:56 AM [facility] 06/12/2024 4:45 AM BLADDER CLEANER Tahmina Dominique PA-C LABORATORY Final Result [facility] [address] [place] [address], * HEMOGLOBIN, GLYCOSYLATED (05/31/2024 8:35 AM BLADDER CLEANER) HGB A1C 5.6 <5.7 % 05/31/2024 9:25 AM [facility] Comment: ADA GUIDELINES 2010 5.7 TO 6.4% INCREASED RISK OF DIABETES > OR = 6.5% CONSISTENT WITH DIABETES ESTIMATED AVG GLUCOSE 114 mg/dL 05/31/2024 9:25 AM [facility] 05/31/2024 8:35 AM BLADDER CLEANER Heber Rodrigez MD LABORATORY Final Result [facility] [address] [place] [address], * LIPID PANEL (05/31/2024 8:35 AM BLADDER CLEANER) CHOLESTEROL 149 <200 MG/DL 05/31/2024 9:37 AM [facility] TRIGLYCERIDES 135 <150 MG/DL 05/31/2024 9:37 AM [facility] HDL 67 >40.0 MG/DL 05/31/2024 9:37 AM [facility] LDL (CALCULATED) 55 <100 MG/DL 05/31/20 9:37 AM [facility] NON HDL CHOLESTEROL 82 <130 MG/DL 05/31 9:37 AM [facility] CHOL/HDL RATIO 2.2 0.0 - 4.5 05/31/2024 9:37 AM [facility] VLDL CALCULATION 27 5 - 55 MG/DL 05/31/2024 9:37 AM [facility] LIPID INTERPRETATION 05/31/2024 9:37 AM [facility] Comment: [facility] CONCENSUS REPORT RECOMMENDATIONS: ADULT CHILD LOW RISK: CHOLESTEROL <200 <170 TRIGLYCERIDE <150 --- HDL >=60 --- LDL <100 <110 BORDERLINE: CHOLESTEROL 200-239 170-199 TRIGLYCERIDE 150-199 --- HDL 40-59 --- LDL 100-159 110-129 HIGH RISK: CHOLESTEROL >=240 >=200 TRIGLYCERIDE >=200 --- HDL <40 --- LDL >=160 >=130 05/31/2024 8:35 AM BLADDER CLEANER Heber Rodrigez MD LABORATORY Final Result [facility] [address] [place] [address], [place] [phone] from Last 3 Months or Most Recently [...] 6:49 PM 03/07/2023 1:00 PM Care Teams Hr Manager Relationship Specialty Start Date End Date Star Pinto NP [address] [place] [id number] PCP - General Nurse Practitioner Family 05/08/24
[2024-09-07 18:38] VITALS: BP 161/91; PULSE 77; RESP 20; O2SAT 98
--- NOTE | 2024-09-07 19:56 | PC.NURSE ---
EMS arrives for patient
== END 2024-09-07 20:02 ==
PROVIDERS: Emergency Provider Emergency Medicine; PCP Family Medicine
DX: S39.92XA Unspecified injury of lower back, initial encounter (principal); S29.9XXA Unspecified injury of thorax, initial encounter; E66.01 Morbid (severe) obesity due to excess calories; Z68.42 Body mass index [BMI] 45.0-49.9, adult; Z79.899 Other long term (current) drug therapy; W18.39XA Other fall on same level, initial encounter; G31.9 Degenerative disease of nervous system, unspecified; M47.814 Spondylosis without myelopathy or radiculopathy, thoracic region; M47.816 Spondylosis without myelopathy or radiculopathy, lumbar region
CPT/HCPCS: 70450; 72125; 72128; 72131; 99284

== ENCOUNTER 2024-09-20 14:12 | Emergency (ER) | payer MEDICARE, MEDICAID, SELFPAY ==
[2024-09-20] VITALS (8 sets, daily range): BP systolic 131–185; BP diastolic 69–109; PULSE 21–101; RESP 16–83; O2SAT 98–99
--- NOTE | 2024-09-20 16:24 | PC.NURSE ---
Pt was difficult stick, unable to obtain labs x multiple attempts from laboratory phlebotomist and primary RN. This RN able to obtain labs, sent to lab. RN assisted pt to use urinal, but pt was then unable to urinate. Pt asking for a drink and given one. Pt watching TV, call light in reach.
[2024-09-20 16:29] LABS: Basophils Absolute Auto 0.1 K/mm3 (0.0-0.1); Basophils Percent Auto 0.6 % (0.2-1.2); Eosinophils Absolute Auto 1.1 K/mm3 (0-0.3); Eosinophils Percent Auto 11.8 % (0-4.4); Hematocrit 34.2 % (42.0-52.0); Hemoglobin 10.9 g/dL (14.0-18.0); Immature Granulocyte Absolute 0.06 K/mm3 (0.00-0.031); Immature Granulocyte Percent A 0.7 % (0-0.5); Lymphocytes Absolute Auto 2.28 K/mm3 (0.9-3.2); Lymphocytes Percent Auto 25.1 % (18.3-44.2); Mean Corpuscular HGB Conc 31.9 g/dl (32-36); Mean Corpuscular Hemoglobin 29.9 pg (26-34); Mean Corpuscular Volume 93.7 fl (80-100); Mean Platelet Volume 8.1 fl (7.4-10.4); Monocytes Absolute Auto 1.2 K/mm3 (0.1-0.6); Monocytes Percent Auto 13.6 % (2.6-8.5); Neutrophils Absolute Auto 4.4 K/mm3 (1.3-6.7); Neutrophils Percent Auto 48.2 % (45.5-73.1); Nucleated Red Blood Cells Perc 0.2 % (0.0-0.2); Platelet Count Result 292 k/mm3 (150-375); Red Blood Count 3.65 M/mm3 (4.6-6.20); Red Cell Distribution Width 17.6 % (11.5-14.5); White Blood Count 9.1 K/mm3 (4.5-10.0)
[2024-09-20 16:30] LABS: Alanine Aminotransferase 22 U/L (6-50); Albumin Level 3.3 g/dL (3.5-5.1); Alkaline Phosphatase 85 U/L (38-126); Anion Gap 5 mmol/L (4-12); Aspartate Amino Transferase 32 U/L (17-59); Bilirubin,Total 0.3 mg/dL (0.2-1.3); Blood Urea Nitrogen 20 mg/dL (9-20); Calcium 8.8 mg/dL (8.4-10.2); Carbon Dioxide 32 mmol/L (22-30); Chloride 99 mmol/L (98-107); Estimated CRCL calculation 130 ml/min; Estimated Glomerular Filt Rate > 60; Glucose 83 mg/dL (65-110); Potassium 4.7 mmol/L (3.4-5.0); Sodium 136 mmol/L (137-145)
[2024-09-20] MEDS: SODIUM CHLORIDE 0.9% IV 1,000 ML 999 ML IV CONT (17:27)
--- NOTE | 2024-09-20 17:28 | PC.NURSE ---
Pt had HR and BP increase with orthostatic VS. MD Lopez made aware. Pt now getting IV fluids. Dinner tray ordered upon pt request. Plan for discharge after hydration.
--- NOTE | 2024-09-20 17:39 | ED.GENADULT ---
HPI - General Adult General Chief complaint: Fall Stated complaint: unwitnessed glf Time Seen by Provider: 09/20/24 14:23 History of Present Illness HPI narrative: Patient is a 54-year-old male who presents ER from his [place] [facility] after having an unwitnessed fall. He does not think he hit his head but is unsure. Has some mental delay. No evidence of trauma. Denies fevers or chills. No chest pain. Reports some chronic back pain on his buttock. Related Data Home Medications ?Medication ?Instructions ?Recorded ?Confirmed ?Last Taken ?Type acetaminophen 325 mg tablet (Mapap 325 mg PO Q6H PRN 04/28/20 Unknown History (acetaminophen)) albuterol sulfate 90 mcg/actuation 1 inh inhalation Q4H 04/28/20 Unknown History aerosol inhaler (Ventolin HFA) brimonidine 0.1 % eye drops 1 drp ophthalmic (eye) Q8H 04/28/20 Unknown History (Alphagan P) buspirone 15 mg tablet 15 mg PO BID 04/28/20 Unknown History clobazam 10 mg tablet 10 mg PO BID 04/28/20 Unknown History divalproex 500 mg tablet,delayed 500 mg PO Q12H 04/28/20 Unknown History release docusate sodium 100 mg tablet 100 mg PO BID 04/28/20 Unknown History duloxetine 60 mg capsule,delayed 60 mg PO DAILY 04/28/20 Unknown History release ergocalciferol (vitamin D2) 50 mcg 50 mcg PO DAILY 04/28/20 Unknown History (2,000 unit) capsule ibuprofen 800 mg tablet 800 mg PO TID 04/28/20 Unknown History ketoconazole 2 % topical cream 1 applic topical BID 04/28/20 Unknown History lamotrigine 25 mg tablet 75 mg PO BID 04/28/20 Unknown History latanoprost 0.005 % eye drops 1 drp ophthalmic (eye) DAILY 04/28/20 Unknown History lubiprostone 24 mcg capsule 24 mcg PO BID 04/28/20 Unknown History (Amitiza) nystatin 100,000 unit/mL oral 1 ml PO DAILY 04/28/20 Unknown History suspension omeprazole 20 mg capsule,delayed 20 mg PO DAILY 04/28/20 Unknown History release oxcarbazepine 600 mg tablet 600 mg PO BID 04/28/20 Unknown History polyethylene glycol 3350(bulk) ea miscellaneous 04/28/20 Unknown History (Base B, Polyethylene Glycol 3350 granules) pravastatin 10 mg tablet 10 mg PO DAILY 04/28/20 Unknown History risperidone 1 mg tablet (Risperdal) 1 mg PO BID 04/28/20 Unknown History triamcinolone acetonide 0.1 % 1 applic dental BID 04/28/20 Unknown History dental paste varenicline tartrate 0.5 mg tablet 0.5 mg PO DAILY 04/28/20 Unknown History (Chantix) Allergies Allergy/AdvReac Type Severity Reaction Status Date / Time No Known Allergies Allergy Verified 09/07/24 15:49 Review of Systems Review of Systems: All systems reviewed & are unremarkable except as noted in HPI and below Constitutional: Constitutional: Reports no additional constitutional complaints ENT: Reports system reviewed and no additional complaints, except as documented Cardiovascular: Cardiovascular: Reports no additional cardiovascular complaints Respiratory: Respiratory: Reports no additional respiratory complaints Musculoskeletal: Musculoskeletal: Reports no additional musculoskeletal complaints Neurologic: Reports system reviewed and no additional complaints, except as documented PMFSH Past Medical History Medical History (Updated 09/20/24 @ 17:45 by Luis Lopez MD) Moderate intellectual disabilities Anxiety GERD (gastroesophageal reflux disease) Hypertension Bipolar disorder Epilepsy Exam Narrative: GENERAL: Well-appearing, well-nourished, and in no acute distress. HEAD: Normocephalic, atraumatic. EYES: PERRL and EOMI. ENT: Mucous membranes moist. CHEST: Clear to auscultation. No respiratory distress. HEART: Regular rate and rhythm. Normal peripheral pulses. ABDOMEN: Soft, nontender, nondistended. EXTREMITIES: Normal range of motion. No edema. Back: No reproducible midline or paraspinal tenderness of the T/L-spine. NEURO: Alert and oriented x3. PSYCH: Normal mood and affect. Course Course Emergency Course: Patient resting comfortably. Lab work and imaging unremarkable. Appropriate for discharge back to facility. Vital Signs Vital signs: Vital Signs Pulse Rate 81 09/20/24 14:13 Respiratory Rate 16 09/20/24 14:13 Blood Pressure 131/81 09/20/24 14:13 Pulse Oximetry 98 09/20/24 14:13 Oxygen Delivery Room Air 09/20/24 14:13 Pulse Rate 101 H 09/20/24 17:18 Respiratory Rate 21 H 09/20/24 14:24 Blood Pressure 185/109 H 09/20/24 17:18 Pulse Oximetry 98 09/20/24 14:24 Oxygen Delivery Room Air 09/20/24 14:13 Medical Decision Making Vital Signs Vital Signs: Vital Signs Pulse Rate 81 09/20/24 14:13 Respiratory Rate 16 09/20/24 14:13 Blood Pressure 131/81 09/20/24 14:13 Pulse Oximetry 98 09/20/24 14:13 Oxygen Delivery Room Air 09/20/24 14:13 Pulse Rate 101 H 09/20/24 17:18 Respiratory Rate 21 H 09/20/24 14:24 Blood Pressure 185/109 H 09/20/24 17:18 Pulse Oximetry 98 09/20/24 14:24 Oxygen Delivery Room Air 09/20/24 14:13 Lab Data 09/20/24 16:14 09/20/24 16:14 Labs: Lab Results 09/20/24 Range/Units 16:14 WBC 9.1 (4.5-10.0) K/mm3 RBC 3.65 L (4.6-6.20) M/mm3 Hgb 10.9 L (14.0-18.0) g/dL Hct 34.2 L (42.0-52.0) % MCV 93.7 (80-100) fl MCH 29.9 (26-34) pg MCHC 31.9 L (32-36) g/dl RDW 17.6 H (11.5-14.5) % Plt Count 292 (150-375) k/mm3 MPV 8.1 (7.4-10.4) fl Immature Gran % (Auto) 0.7 H (0-0.5) % Neut % (Auto) 48.2 (45.5-73.1) % Lymph % (Auto) 25.1 (18.3-44.2) % [place] % (Auto) 13.6 H (2.6-8.5) % Eos % (Auto) 11.8 H (0-4.4) % Baso % (Auto) 0.6 (0.2-1.2) % Lymph # (Auto) 2.28 (0.9-3.2) K/mm3 [place] # (Auto) 1.2 H (0.1-0.6) K/mm3 Eos # (Auto) 1.1 H (0-0.3) K/mm3 Baso # (Auto) 0.1 (0.0-0.1) K/mm3 Abs Immat Gran (auto) 0.06 H (0.00-0.031) K/mm3 Absolute Neuts (auto) 4.4 (1.3-6.7) K/mm3 Absolute Nucleated RBC 0.020 H (0.0-0.012) K/mm3 Nucleated RBC % 0.2 (0.0-0.2) % Sodium 136 L (137-145) mmol/L Potassium 4.7 (3.4-5.0) mmol/L Chloride 99 (98-107) mmol/L Carbon Dioxide 32 H (22-30) mmol/L Anion Gap 5 (4-12) mmol/L BUN 20 D (9-20) mg/dL Creatinine 0.84 (0.7-1.3) mg/dL Estim Creat Clear Calc 130 ml/min Estimated GFR > 60 (59 - ) Glucose 83 (65-110) mg/dL Calcium 8.8 (8.4-10.2) mg/dL Total Bilirubin 0.3 (0.2-1.3) mg/dL AST 32 (17-59) U/L ALT 22 (6-50) U/L Alkaline Phosphatase 85 (38-126) U/L Total Protein 7.0 (6.3-8.2) g/dL Albumin 3.3 L (3.5-5.1) g/dL Imaging Data Radiologist's impression: ITS Impressions Head CT 09/20/24 15:14 IMPRESSION: No acute intracranial findings. Discharge Plan Discharge Clinical Impression: Accident due to mechanical fall without injury Patient Disposition: Home, Self-Care Condition: Stable Additional Instructions: Return ER if you have fever 100.4? F, he can not keep down food water, you lose consciousness, have additional concerns. Patient Language: Jordanian Prescriptions: No Action polyethylene glycol 3350(bulk) [Base B,Polyethylene [id number]] Granules miscellaneous albuterol sulfate [Ventolin HFA] 90 mcg/actuation HFA aerosol inhaler 1 inh inhalation Q4H ibuprofen 800 mg tablet 800 mg PO TID acetaminophen [Mapap (acetaminophen)] 325 mg tablet 325 mg PO Q6H PRN latanoprost 0.005 % drops 1 drp ophthalmic (eye) DAILY pravastatin 10 mg tablet 10 mg PO DAILY risperidone [Risperdal] 1 mg tablet 1 mg PO BID triamcinolone acetonide 0.1 % paste 1 applic dental BID Rx Instructions: use after food and/or drink and/or oral hygiene Alphagan P 0.1 % drops 1 drp ophthalmic (eye) Q8H oxcarbazepine 600 mg tablet 600 mg PO BID Chantix 0.5 mg tablet 0.5 mg PO DAILY Rx Instructions: administer on days 1, 2, and 3 of therapy clobazam 10 mg tablet 10 mg PO BID divalproex 500 mg tablet,delayed release (DR/EC) 500 mg PO Q12H docusate sodium 100 mg tablet 100 mg PO BID ketoconazole 2 % cream 1 applic topical BID lamotrigine 25 mg tablet 75 mg PO BID nystatin 100,000 unit/mL suspension 1 ml PO DAILY Rx Instructions: swish and swallow duloxetine 60 mg capsule,delayed release(DR/EC) 60 mg PO DAILY omeprazole 20 mg capsule,delayed release(DR/EC) 20 mg PO DAILY ergocalciferol (vitamin D2) 50 mcg (2,000 unit) capsule 50 mcg PO DAILY Amitiza 24 mcg capsule 24 mcg PO BID buspirone 15 mg tablet 15 mg PO BID Follow-up/Referrals: Yves,Ebonie Argueta MD [Primary Care Provider] - 1 Week
== END 2024-09-20 19:14 ==
PROVIDERS: Emergency Provider Emergency Medicine; PCP Family Medicine
DX: Z04.3 Encounter for examination and observation following other accident (principal); G40.909 Epilepsy, unspecified, not intractable, without status epilepticus; I10 Essential (primary) hypertension; K21.9 Gastro-esophageal reflux disease without esophagitis; F71 Moderate intellectual disabilities; F31.9 Bipolar disorder, unspecified; Z79.899 Other long term (current) drug therapy; W19.XXXA Unspecified fall, initial encounter
CPT/HCPCS: 36415; 70450; 80053; 85025; 96360; 99284; J7030

== ENCOUNTER 2024-09-22 15:55 | Inpatient (IN) | payer MEDICARE, SELFPAY, MEDICAID ==
[2024-09-22] VITALS (27 sets, daily range): BP systolic 141–151; BP diastolic 53–137; PULSE 109–122; RESP 17–32; TEMP 37.2; O2SAT 82–100
--- NOTE | ~2024-09-22 | US_ITS ---
EXAMINATION: US thoracentesis DATE: 09/23/2024 15:09 INDICATION: pleural effusion TECHNIQUE: The procedure and its risks, benefits, and alternatives were discussed with the patient. P otential risks discussed included bleeding, infection, and pneumothorax. The patient understood the r isks and agreed to proceed. The skin was prepped and draped in sterile fashion. 1% lidocaine was used for local anesthesia. Under ultrasound guidance, a 5 Fr catheter with trochar was advanced into the left pleural effusion. Fluid was aspirated. The catheter was removed, and a dressing was applied. The re were no immediate complications. FINDINGS: Ultrasound images demonstrate a left pleural effusion and the catheter within the fluid. IMPRESSION: 1. Successful ultrasound-guided thoracentesis yielding 50 mL of yellow fluid. At the end of the proc edure, blood tinged the fluid red. Reviewed, dictated and finalized at location A. NEERING GROUP LEADER IMPRESSION: 1. Successful ultrasound-guided thoracentesis yielding 50 mL of yellow fluid. At the end of the procedure, blood tinged the fluid red.
--- NOTE | ~2024-09-22 | XR_ITS ---
EXAMINATION: XR chest 1V portable DATE: 09/22/2024 17:28 INDICATION: Cough. TECHNIQUE: A single frontal view of the chest was obtained. COMPARISON: Chest view , chest CT 08/24/2024 FINDINGS: There are airspace opacities in left lower lung zone. There is a small left pleural effusio n. No pneumothorax. Cardiomegaly is noted. There are old healed right rib fractures. IMPRESSION: 1. Chronic airspace opacities in left lower lung zone, likely rounded atelectasis. 2. Stable small loculated left pleural effusion. 3. Cardiomegaly. Reviewed, dictated and finalized at location A. ENTICESHIP REPRESENTATIVE IMPRESSION: 1. Chronic airspace opacities in left lower lung zone, likely rounded atelectas is. 2. Stable small loculated left pleural effusion. 3. Cardiomegaly.
--- NOTE | ~2024-09-22 | XR_ITS ---
EXAMINATION: [id number] DATE: 09/23/2024 14:59 INDICATION: Left pleural effusion status post thoracentesis. TECHNIQUE: A single frontal view of the chest was obtained. COMPARISON: Chest single view 09/22/2024, chest CT 08/24/2024 FINDINGS: There is a small left pleural effusion. There are airspace opacities in left lower lung zon e. No pneumothorax. Cardiomegaly is noted. There are old bilateral rib fractures. IMPRESSION: 1. Small left pleural effusion. 2. Stable airspace opacities in left lower lung zone, likely rounded atelectasis. 3. Cardiomegaly. Reviewed, dictated and finalized at location A. NISTRATIVE CLERK IMPRESSION: 1. Small left pleural effusion. 2. Stable airspace opacities in left lower lung zone, likely rounded atelectasi s. 3. Cardiomegaly.
--- NOTE | 2024-09-22 16:31 | PC.NURSE ---
RN went to remove patients socks to assess feet. Socks were adhered to pt feet and socks were soiled but dry and stiff. Pt has extremely dry, scaly skin, rashes and areas of concern to the bottom of the feet. Pt also has particles of sock remains adhered to bottom of foot. RN called pt longterm spoke with Harry FLOWERS who state pt was sent for concerns for sepsis. RN also spoke with electronic maintenance supervisor Rhina who states that the rashes are not new and that the socks are changed more than once a day due to patient incontinence and that the socks were stiff and adhered due to weeping from the lower legs/feet. ED charge and EDP aware.
--- NOTE | 2024-09-22 16:47 | ED.GENADULT ---
HPI - General Adult General Chief complaint: Unspecified Stated complaint: increased tremors Time Seen by Provider: 09/22/24 16:29 History of Present Illness HPI narrative: Pt sent from [place] for increased tremors. Pt reportedly has fevers but not documented here. Pt has diffuse lesions all over his truck and extremities that appear chronic. Pt has intellectual disabilities and history of tremors. Related Data Home Medications ?Medication ?Instructions ?Recorded ?Confirmed ?Last Taken ?Type acetaminophen 325 mg tablet (Mapap 325 mg PO Q6H PRN 04/28/20 Unknown History (acetaminophen)) albuterol sulfate 90 mcg/actuation 1 inh inhalation Q4H 04/28/20 Unknown History aerosol inhaler (Ventolin HFA) brimonidine 0.1 % eye drops 1 drp ophthalmic (eye) Q8H 04/28/20 Unknown History (Alphagan P) buspirone 15 mg tablet 15 mg PO BID 04/28/20 Unknown History clobazam 10 mg tablet 10 mg PO BID 04/28/20 Unknown History divalproex 500 mg tablet,delayed 500 mg PO Q12H 04/28/20 Unknown History release docusate sodium 100 mg tablet 100 mg PO BID 04/28/20 Unknown History duloxetine 60 mg capsule,delayed 60 mg PO DAILY 04/28/20 Unknown History release ergocalciferol (vitamin D2) 50 mcg 50 mcg PO DAILY 04/28/20 Unknown History (2,000 unit) capsule ibuprofen 800 mg tablet 800 mg PO TID 04/28/20 Unknown History ketoconazole 2 % topical cream 1 applic topical BID 04/28/20 Unknown History lamotrigine 25 mg tablet 75 mg PO BID 04/28/20 Unknown History latanoprost 0.005 % eye drops 1 drp ophthalmic (eye) DAILY 04/28/20 Unknown History lubiprostone 24 mcg capsule 24 mcg PO BID 04/28/20 Unknown History (Amitiza) nystatin 100,000 unit/mL oral 1 ml PO DAILY 04/28/20 Unknown History suspension omeprazole 20 mg capsule,delayed 20 mg PO DAILY 04/28/20 Unknown History release oxcarbazepine 600 mg tablet 600 mg PO BID 04/28/20 Unknown History polyethylene glycol 3350(bulk) ea miscellaneous 04/28/20 Unknown History (Base B, Polyethylene Glycol 3350 granules) pravastatin 10 mg tablet 10 mg PO DAILY 04/28/20 Unknown History risperidone 1 mg tablet (Risperdal) 1 mg PO BID 04/28/20 Unknown History triamcinolone acetonide 0.1 % 1 applic dental BID 04/28/20 Unknown History dental paste varenicline tartrate 0.5 mg tablet 0.5 mg PO DAILY 04/28/20 Unknown History (Chantix) Allergies Allergy/AdvReac Type Severity Reaction Status Date / Time prochlorperazine (From Allergy Unknown Unknown Verified 09/22/24 16:15 Compazine) lithium Allergy Unknown Verified 09/22/24 16:15 Review of Systems Review of Systems: All systems reviewed & are unremarkable except as noted in HPI and below PMFSH Past Medical History Medical History (Updated 09/23/24 @ 00:52 by Kian Mc MD) Moderate intellectual disabilities Anxiety GERD (gastroesophageal reflux disease) Hypertension Bipolar disorder Epilepsy Exam Const: General: cooperative and no acute distress Nutritional Appearance: obese Limitations: behavioral limitations HENMT: Mouth: Yes Normal oral and palatal mucosa present Eyes: Conjunctivae: conjunctivae normal Neck: Neck: normal visual inspection, full ROM, no lymphadenopathy and no meningeal signs Chest: Chest palpation & inspection: normal inspection of the chest Resp: Effort & Inspection: normal respiratory effort Auscultation: rales Cardio: Rate: regular rate Rhythm: regular rhythm GI: Inspection: normal to inspection Auscultation: normal bowel sounds Skin: Rashes: rashes noted (with scabs all over trynk and extremities no drainage or signs of infection) Neuro: General: patient oriented x3 and no focal motor deficits Extrem: General: full ROM and no clubbing, cyanosis or edema Course Vital Signs Vital signs: Vital Signs Temperature 37.2 C 09/22/24 15:56 Pulse Rate 112 H 09/22/24 15:56 Respiratory Rate 20 09/22/24 15:56 Blood Pressure 141/53 H 09/22/24 15:56 Pulse Oximetry 93 09/22/24 15:56 Oxygen Delivery Room Air 09/22/24 15:56 Temperature 37.2 C 09/22/24 15:56 Pulse Rate 109 H 09/22/24 19:08 Respiratory Rate 23 H 09/22/24 19:08 Blood Pressure 151/137 H 09/22/24 17:11 Pulse Oximetry 89 L 09/22/24 22:45 Oxygen Delivery Room Air 09/22/24 15:56 Medical Decision Making MDM Narrative Medical decision making narrative: Pt sent in for reported increased tremors and fever. will do septic work up and recheck. will turn over to Dr Mc at 1900 awaiting labs. Vital Signs Vital Signs: Vital Signs Temperature 37.2 C 09/22/24 15:56 Pulse Rate 112 H 09/22/24 15:56 Respiratory Rate 20 09/22/24 15:56 Blood Pressure 141/53 H 09/22/24 15:56 Pulse Oximetry 93 09/22/24 15:56 Oxygen Delivery Room Air 09/22/24 15:56 Temperature 37.2 C 09/22/24 15:56 Pulse Rate 109 H 09/22/24 19:08 Respiratory Rate 23 H 09/22/24 19:08 Blood Pressure 151/137 H 09/22/24 17:11 Pulse Oximetry 89 L 09/22/24 22:45 Oxygen Delivery Room Air 09/22/24 15:56 Lab Data 09/22/24 18:02 09/22/24 18:02 Labs: Lab Results 09/22/24 09/22/24 Range/Units 18:02 21:30 WBC 21.0 H (4.5-10.0) K/mm3 RBC 3.95 L (4.6-6.20) M/mm3 Hgb 11.8 L (14.0-18.0) g/dL Hct 36.6 L (42.0-52.0) % MCV 92.7 (80-100) fl MCH 29.9 (26-34) pg MCHC 32.2 (32-36) g/dl RDW 18.0 H (11.5-14.5) % Plt Count 278 (150-375) k/mm3 MPV 7.8 (7.4-10.4) fl Immature Gran % (Auto) 0.8 H (0-0.5) % Neut % (Auto) 80.9 H (45.5-73.1) % Lymph % (Auto) 7.4 L (18.3-44.2) % [facility] % (Auto) 10.2 H (2.6-8.5) % Eos % (Auto) 0.4 (0-4.4) % Baso % (Auto) 0.3 (0.2-1.2) % Lymph # (Auto) 1.56 (0.9-3.2) K/mm3 [facility] # (Auto) 2.2 H (0.1-0.6) K/mm3 Eos # (Auto) 0.1 (0-0.3) K/mm3 Baso # (Auto) 0.1 (0.0-0.1) K/mm3 Abs Immat Gran (auto) 0.17 H (0.00-0.031) K/mm3 Absolute Neuts (auto) 17.0 H (1.3-6.7) K/mm3 Absolute Nucleated RBC 0.050 H (0.0-0.012) K/mm3 Nucleated RBC % 0.2 (0.0-0.2) % PT 14.3 (11.1-14.7) Seconds INR 1.1 APTT 35.3 (22.3-36.8) Seconds Sodium 137 (137-145) mmol/L Potassium 4.8 (3.4-5.0) mmol/L Chloride 100 (98-107) mmol/L Carbon Dioxide 30 (22-30) mmol/L Anion Gap 7 (4-12) mmol/L BUN 14 D (9-20) mg/dL Creatinine 0.88 (0.7-1.3) mg/dL Estim Creat Clear Calc 119 ml/min Estimated GFR > 60 (59 - ) Glucose 98 (65-110) mg/dL Lactic Acid 1.7 (0.7-2.0) mmol/L Calcium 9.6 (8.4-10.2) mg/dL Total Bilirubin 0.5 (0.2-1.3) mg/dL AST 37 (17-59) U/L ALT 29 (6-50) U/L Alkaline Phosphatase 103 (38-126) U/L C-Reactive Protein 7.3 H (<1.0) mg/dL Total Protein 8.0 (6.3-8.2) g/dL Albumin 3.7 (3.5-5.1) g/dL Urine Color Yellow (Yellow) Urine Appearance Cloudy H (Clear) Urine pH >=9.0 H (5.0-9.0) Ur Specific [place] 1.021 (1.001-1.035) Urine Protein 1+ H (Negative) mg/dL Urine Glucose (UA) Negative (Negative) mg/dL Urine Ketones Trace H (Negative) mg/dL Ur Blood (Man) Non-hemolyzed trace (Negative) Urine Nitrate Negative (Negative) Urine Bilirubin Negative (Negative) Urine Urobilinogen 2.0 H (<2.0) mg/dL Add Ur Microanalysis Reviewed Leukocyte Esterase Rfl Trace H (Negative) GINGER/UL Urine RBC 21-50 H (0-2) /hpf Urine WBC 11-20 H (0-3) /hpf Ur Squamous Epith Cells Few (Few) /hpf Urine Bacteria None seen /hpf Urine Casts 0-2 Discharge Plan Discharge Clinical Impression: Pneumonia, Acute hypoxic respiratory failure Patient Disposition: Still a Patient Condition: Stable Patient Language: Serbian Prescriptions: No Action polyethylene glycol 3350(bulk) [Base B,Polyethylene [id number]] Granules miscellaneous albuterol sulfate [Ventolin HFA] 90 mcg/actuation HFA aerosol inhaler 1 inh inhalation Q4H ibuprofen 800 mg tablet 800 mg PO TID acetaminophen [Mapap (acetaminophen)] 325 mg tablet 325 mg PO Q6H PRN latanoprost 0.005 % drops 1 drp ophthalmic (eye) DAILY pravastatin 10 mg tablet 10 mg PO DAILY risperidone [Risperdal] 1 mg tablet 1 mg PO BID triamcinolone acetonide 0.1 % paste 1 applic dental BID Rx Instructions: use after food and/or drink and/or oral hygiene Alphagan P 0.1 % drops 1 drp ophthalmic (eye) Q8H oxcarbazepine 600 mg tablet 600 mg PO BID Chantix 0.5 mg tablet 0.5 mg PO DAILY Rx Instructions: administer on days 1, 2, and 3 of therapy clobazam 10 mg tablet 10 mg PO BID divalproex 500 mg tablet,delayed release (DR/EC) 500 mg PO Q12H docusate sodium 100 mg tablet 100 mg PO BID ketoconazole 2 % cream 1 applic topical BID lamotrigine 25 mg tablet 75 mg PO BID nystatin 100,000 unit/mL suspension 1 ml PO DAILY Rx Instructions: swish and swallow duloxetine 60 mg capsule,delayed release(DR/EC) 60 mg PO DAILY omeprazole 20 mg capsule,delayed release(DR/EC) 20 mg PO DAILY ergocalciferol (vitamin D2) 50 mcg (2,000 unit) capsule 50 mcg PO DAILY Amitiza 24 mcg capsule 24 mcg PO BID buspirone 15 mg tablet 15 mg PO BID Follow-up/Referrals: Yves,Ebonie Argueta MD [Primary Care Provider] - Time of Disposition: 00:50 Sign Out Sign Out Data: Patient Sign Out occurred on 09/22/24 at 19:41. Patient's care was discussed, and care was transferred from Yoon Lyon III, DO to Kian Mc MD.
--- NOTE | 2024-09-22 17:26 | PC.NURSE ---
RN called to report group home
--- OUTSIDE RECORDS SUMMARY | 2024-09-22 18:03 | XMS_ITS | CONTINUITY OF CARE DOCUMENT ---
Author Name criselvira, criselvira Address Unknown Organization [facility] Address [address] [address] Phone [phone] Care Team Providers Care Wind Tunnel Mechanic Name Role Phone Davonte ESPARZA, Saulius Unavailable DOROTHY ESPARZA, RASHMIN Unavailable DOROTHY ESPARZA, SANJANAMIN Unavailable [phone] INSURANCE PROVIDERS Payer name Policy type / Coverage type [place] [employer] [employer] Medicaid 0 [id number] [place] [employer] Medicare [id number]
--- OUTSIDE RECORDS SUMMARY | 2024-09-22 18:03 | XMS_ITS | Clinical Summary ---
Author Organization [facility] Address [address] [place] [address] Care Team Providers Care Roof Truss Builder Name Role Phone Star Pinto NP Primary Care Provider [phone] Allergies Active Allergy Reactions Criticality Noted Date Comments Prochlorperazine Unknown 05/26/2024 [facility]ed on [facility]. [place] Unknown 11/23/2021 Medications duloxetine 60 MG capsule [...] needed for Pain. Active Vitamin D, Ergocalciferol, 54973 units capsuleIndicatio ns:Takes on . Take 1 [...] Generalized weakness 05/30/2024 Lethargy 09/30/2023 Severe sepsis ([facility] 06/05/2023 Seizure ([facility]) 03/07/2023 Pneumonia 03/04/2023 Generalized anxiety disorder 11/15/2021 [...] complex partial seizures, intractable, without status epilepticus ([facility]) 03/24/2019 Bipolar affective ([facility]) 08/05/2013 Immunizations Name Administration Dates Next Due Fluzone [...] Recorded In the past 12 months has e [employer], gas, oil, or water [employer] threatened to shut off services in your [...] week 05/30/2024 How often do you attend mu-ism or taoist serv ices? Never 05/30/2024 Do you belong to any clubs o r organizations such as mu-ism groups, unions, fraternal or athletic groups, or [...] Recorded Patient Health Questionnaire-2 Score 0 04/16/2024 [facility] Occupat ional Health - Occupational Stress Questionnaire Answer Date Recorded [...] place to sleep or slept in a group home (including now)? No 09/30/2023 Housing Stability Vital Sign Answer Dennis e Recorded In the last 12 months, was t here a time when you were not able to pay the mortgage or rent on time? No 05/30/2024 In the past 12 months, how m any times have you moved where you were living? 0 05/30/2024 At any time in the past 12 m [facility], were you homeless or living in a group home (including now)? No 05/30/2024 Sex and Gender Information Value Date Recorded Sex Assigned at Male 06/06/2023 3:22 AM FREIGHT HANDLER Legal Sex Male 5:06 PM CDT Gender Identity Male 06/06/2023 3:22 AM FREIGHT HANDLER Sexual Orientation Not on file Last Filed Vital Signs Vital Sign Reading Time Taken Comments Blood Pressure 135/67 06/12/2024 12:00 PM FREIGHT HANDLER Pulse 66 06/12/2024 12:00 PM FREIGHT HANDLER Temperature 36.9 C (98.4 F) 06/12/2024 12:00 PM FREIGHT HANDLER Respiratory Rate 19 06/12/2024 12:00 PM FREIGHT HANDLER Oxygen Saturation 99% 06/12/2024 12:00 PM FREIGHT HANDLER Inhaled Oxygen Concentration - - Weight 154 kg (339 lb 8.1 oz) 06/08/2024 5:00 AM FREIGHT HANDLER Height 175.3 cm (5' 9 ) 05/30/2024 3:09 PM FREIGHT HANDLER Body Mass Index 50.14 05/30/2024 3:09 PM FREIGHT HANDLER Plan of Treatment Upcoming Encounters Date Type Department Care Team (Late st Contact Info) Description 10/22/2024 10:40 AM CDT Office Visit [facility] [address] [place] [address] Star Robles MD [address] [facility] [address] [place] [address] 11/18/2024 10:00 AM CDT Office Visit [facility], [address] [place] [address] Bayron Roa MD [facility] [place] [address] Health Maintenance Due Date Last Done Comments [...] Vaccines (1 of 2) 2022 COVID-19 Vaccine (1 - season) 2024 Influenza Adult (#1) 2024 05/02/2019, 04/17/2019, 04/17/2018, Additional history exists PHQ-2 (Physician [place] [employer]) 07/22/2024 04/16/2024 Hemoglobin A1C 11/28/2024 05/31/2024, 09/30/2023 Lipid Panel 05/31/2025 05/31/2024, 12/21, 10/01/2023 DTaP, [...] and discharge planning Lifestyle No Tami Choi, ACCOUNT LIAISON Safety Patient/family will have appropriate support at home upon discharge Lifestyle No Edin Peters RN Procedures Procedure Name Priority Date/Time Associated Diagnosis Comments LIPID PANEL Routine 05/31/2024 8:35 AM FREIGHT HANDLER HEMOGLOBIN, GLYCOSYLATED Routine 05/31/2024 8:35 AM FREIGHT HANDLER from Last 3 Months or Most Recently Relevant to Health Maintenance Results * HEMOGLOBIN, GLYCOSYLATED (05/31/2024 8:35 AM FREIGHT HANDLER) HGB A1C 5.6 <5.7 % 05/31/2024 9:25 AM FREIGHT HANDLER [facility] Comment: ADA GUIDELINES 2010 5.7 TO 6.4% INCREASED RISK OF DIABETES > OR = 6.5% CONSISTENT WITH DIABETES ESTIMATED AVG GLUCOSE 114 mg/dL 05/31/2024 9:25 AM FREIGHT HANDLER [facility] 05/31/2024 8:35 AM FREIGHT HANDLER Heber Rodrigez MD LABORATORY Final Result [facility] [address] [place] [address], [place] [phone] * LIPID PANEL (05/31/2024 8:35 AM FREIGHT HANDLER) CHOLESTEROL 149 <200 MG/DL 05/31/2024 9:37 AM [facility] TRIGLYCERIDES 135 <150 MG/DL 05/31/2024 9:37 AM [facility] HDL 67 >40.0 MG/DL 05/31/2024 9:37 AM [facility] LDL (CALCULATED) 55 <100 MG/DL 05/31/20 9:37 AM [facility] NON HDL CHOLESTEROL 82 <130 MG/DL 05/31 9:37 AM [facility] CHOL/HDL RATIO 2.2 0.0 - 4.5 05/31/2024 9:37 AM [facility] VLDL CALCULATION 27 5 - 55 MG/DL 05/31/2024 9:37 AM [facility] LIPID INTERPRETATION 05/31/2024 9:37 AM [facility] Comment: [facility] CONCENSUS REPORT RECOMMENDATIONS: ADULT CHILD LOW RISK: CHOLESTEROL <200 <170 TRIGLYCERIDE <150 --- HDL >=60 --- LDL <100 <110 BORDERLINE: CHOLESTEROL 200-239 170-199 TRIGLYCERIDE 150-199 --- HDL 40-59 --- LDL 100-159 110-129 HIGH RISK: CHOLESTEROL >=240 >=200 TRIGLYCERIDE >=200 --- HDL <40 --- LDL >=160 >=130 05/31/2024 8:35 AM [facility] Heber Rodrigez MD LABORATORY Final Result [facility] [address] [place] [address], from Last 3 Months or Most Recently [...] 6:49 PM 03/07/2023 1:00 PM Care Teams Roof Truss Builder Relationship Specialty Start Date End Date Star Pinto NP [address] [place] [id number] PCP - General Nurse Practitioner Family 05/08/24
[2024-09-22 18:09] LABS: Basophils Absolute Auto 0.1 K/mm3 (0.0-0.1); Basophils Percent Auto 0.3 % (0.2-1.2); Eosinophils Absolute Auto 0.1 K/mm3 (0-0.3); Eosinophils Percent Auto 0.4 % (0-4.4); Hematocrit 36.6 % (42.0-52.0); Hemoglobin 11.8 g/dL (14.0-18.0); Immature Granulocyte Absolute 0.17 K/mm3 (0.00-0.031); Immature Granulocyte Percent A 0.8 % (0-0.5); Lymphocytes Absolute Auto 1.56 K/mm3 (0.9-3.2); Lymphocytes Percent Auto 7.4 % (18.3-44.2); Mean Corpuscular HGB Conc 32.2 g/dl (32-36); Mean Corpuscular Hemoglobin 29.9 pg (26-34); Mean Corpuscular Volume 92.7 fl (80-100); Mean Platelet Volume 7.8 fl (7.4-10.4); Monocytes Absolute Auto 2.2 K/mm3 (0.1-0.6); Monocytes Percent Auto 10.2 % (2.6-8.5); Neutrophils Percent Auto 80.9 % (45.5-73.1); Nucleated Red Blood Cells Perc 0.2 % (0.0-0.2); Platelet Count Result 278 k/mm3 (150-375); Red Blood Count 3.95 M/mm3 (4.6-6.20)
[2024-09-22 18:20] LABS: Lactic Acid Reflex 1.7 mmol/L (0.7-2.0)
[2024-09-22 18:22] LABS: Alanine Aminotransferase 29 U/L (6-50); Albumin Level 3.7 g/dL (3.5-5.1); Alkaline Phosphatase 103 U/L (38-126); Anion Gap 7 mmol/L (4-12); Aspartate Amino Transferase 37 U/L (17-59); Bilirubin,Total 0.5 mg/dL (0.2-1.3); Blood Urea Nitrogen 14 mg/dL (9-20); CRP 7.3 mg/dL (<1.0); Calcium 9.6 mg/dL (8.4-10.2); Carbon Dioxide 30 mmol/L (22-30); Chloride 100 mmol/L (98-107); Estimated CRCL calculation 119 ml/min; Estimated Glomerular Filt Rate > 60; Glucose 98 mg/dL (65-110); Potassium 4.8 mmol/L (3.4-5.0); Sodium 137 mmol/L (137-145)
--- OUTSIDE RECORDS SUMMARY | 2024-09-22 18:22 | XMS_ITS | CONTINUITY OF CARE DOCUMENT ---
Author Name criselvira, criselvira Address Unknown Organization [facility] [address] Address [address] [place] [address] Phone [phone] Care Team Providers Care Lunch Truck Driver Name Role Phone Davonte ESPARZA, Saulius Unavailable DOROTHY ESPARZA, RASHMIN Unavailable [phone] DOROTHY ESPARZA, SANJANAMIN Unavailable INSURANCE PROVIDERS Payer name Policy type / Coverage type [place] red green party ID HEALTHCARE AND FAMILY SERVICES Medicaid 0 [id number] [place] [employer] Medicare [id number]
[2024-09-22 18:23] LABS: INR 1.1; Prothrombin Time 14.3 Seconds (11.1-14.7)
[2024-09-22 18:24] LABS: Partial Thromboplastin Time 35.3 Seconds (22.3-36.8)
[2024-09-22 21:55] LABS: Add Urine Microscopic? YES; Appearance Urine Cloudy (Clear); Bacteria Urine None Seen /hpf; Bilirubin Urine Negative (Negative); Blood Urine Non-Hemolyzed Trace (Negative); Color Urine Yellow (Yellow); Glucose Urine UA Negative (Negative); Ketones Urine Trace mg/dL (Negative); Leukocyte Esterase Ur Trace LEU/UL (Negative); Need Manual Microscopic Reviewed; Nitrate Urine Negative (Negative); Non Pathogenic Casts 0-2; Protein Urine 1+ mg/dL (Negative); RBC Urine 21-50 /hpf (0-2); Specific Grav Ur 1.021 (1.001-1.035); Squamous Epithelial Cell Urine Few /hpf (Few); pH Urine >=9.0 (5.0-9.0)
[2024-09-23] VITALS (24 sets, daily range): BP systolic 90–166; BP diastolic 54–87; PULSE 72–118; RESP 16–20; TEMP 36.2–38.8; O2SAT 87–99; BMI 47.5
[2024-09-23] MEDS: SODIUM CHLORIDE 0.9% IV 1,000 ML 999 ML IV CONT ×2 (01:16)
[2024-09-23] MEDS: AZITHROMYCIN 500 MG/NS 250 ML 500 MG/250 ML BAG 250 MG IVPB (01:16)
[2024-09-23 02:08] LABS: Influenza A QL RT-PCR Negative (Negative); Influenza B QL RT-PCR Negative (Negative); RSV RNA, RT-PCR Negative (Negative); SARS-CoV-2 RNA PCR Negative (Negative)
--- NOTE | 2024-09-23 03:23 | ADMGEN ---
This patient, Jaime Cee Jr., was admitted to Medical Room 245-. Patient/family oriented to hospital policies and general routines including ID bracelet, bed and alarms, visiting hours, pain management, procedures, bathroom and other care routines, personal items, smoking policy, room service/diet, and visiting hours. Information on how to activate the Rapid Response Team has been discussed. Patient/Family are encouraged to report perceived risks to care and to ask questions if they do not understand what they are told or what they should do.
[2024-09-23] MEDS: IPRATROPIUM 0.5 MG/ALBUTEROL SULFATE 2.5 MG AMPUL.NEB 3 ML INHALATION ×4 (03:25→21:19)
--- NOTE | 2024-09-23 08:24 | PM.IMHP ---
H&P: HPI History of Present Illness Date/Time: 09/23/24 06:30 Chief Complaint: Sent in from [facility] due to increased shaking Narrative: 54-year-old male with a past medical history of seizures, essential hypertension, hyperlipidemia, GERD, glaucoma, bipolar disorder, intellectual disability, essential tremor, and morbid obesity among other chronic diseases who presented to the ER via EMS from [facility] due to increased shaking. Source of information is obtained from EMS records, [facility] records and ER physician report. The patient is only alert oriented x2 at baseline and is aware of his name and that he is in a hospital. He thinks that he was sent into the hospital due to being nervous. On arrival to the hospital he was noted to be coughing. He was also tachypneic and tachycardic. Shortly after arrival to the ER the patient spiked a fever to 101.9. White count was found to be elevated at 21. He denied any nausea or vomiting and has only been on the medical floor for a couple of hours but has already requested and drink at least 4 sodas. He has not yet voided since arriving to the medical floor but has pure wick catheter in place. He denies any abdominal pain. He has multiple areas of rash on his arms that he states are itchy all the time. He denies any chest pain or shortness of breath. When I arrived to the patient's room he was noted to be snoring with brief episodes of apnea. In the ER the patient had documented episodes of hypoxia but it does not appear that he was placed on oxygen. I suspect the periods of hypoxia were associated with apneic events but again this was not well documented. Review of Systems Review of Systems: Review of systems limited due to the patient's baseline intellectual disability and psychiatric illness. 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 Chronic venous stasis dermatitis Chronic pruritic rash in adult BMI greater than 40 Essential tremor Vitamin D deficiency Chronic constipation Hyperlipidemia Glaucoma Impulse control disorder Moderate intellectual disabilities Anxiety GERD (gastroesophageal reflux disease) Hypertension Bipolar disorder Epilepsy Surgical History Surgical History (Updated 09/23/24 @ 08:33 by Susana Singh DO) Surgical history unknown Family History Family History Mother Other Unknown family medical history Social History Social History (Updated 09/23/24 @ 08:42 by Susana Singh DO) Social History: The patient resides at [facility] care. He is a former smoker but cannot give me details about the amount or duration of his smoking history. He denies prior alcohol use. [place] Code status: Full code Healthcare power of civil attorney/state guardian: Rodriguez Del Angel Smoking status: Former smoker Tobacco type: cigarettes Alcohol intake: never Substance use: never Do You Feel Safe in your Home?: Yes Lack of Transportation: No Lack of Food: Never True Current Housing: I Have Housing Concerned About Future Housing: No Difficulty Paying Gas/Electric Bills: No Difficulty Paying for Meds: No Currently Unemployed: No Education: Don't Know Difficulty w/ Childcare or Family Care: No Living arrangements: [facility] Occupation/Education: other Additional occupation/education comments: Disabled Gender identity (if verbalized by the patient): Male Spiritual care concerns: No Agree to blood products: Yes Meds Home Medications and Allergies Home Medications ?Medication ?Instructions ?Recorded ?Confirmed ?Type albuterol sulfate 90 mcg/actuation 2 inh inhalation Q4H PRN shortness 04/28/20 09/23/24 History aerosol inhaler (Ventolin HFA) of breath or wheezing brimonidine 0.1 % eye drops 1 drp EACH EYE TID 04/28/20 09/23/24 History (Alphagan P) buspirone 15 mg tablet 15 mg PO BID 04/28/20 09/23/24 History clobazam 10 mg tablet 10 mg PO DAILY@1700 04/28/20 09/23/24 History divalproex 500 mg tablet,delayed 500 mg PO Q12H 04/28/20 09/23/24 History release docusate sodium 100 mg tablet 100 mg PO BID 04/28/20 09/23/24 History duloxetine 60 mg capsule,delayed 60 mg PO DAILY 04/28/20 09/23/24 History release lamotrigine 25 mg tablet 25 mg PO BID 04/28/20 09/23/24 History latanoprost 0.005 % eye drops 1 drp ophthalmic (eye) HS 04/28/20 09/23/24 History omeprazole 20 mg capsule,delayed 20 mg PO DAILY 04/28/20 09/23/24 History release oxcarbazepine 600 mg tablet 600 mg PO TID 04/28/20 09/23/24 History risperidone 1 mg tablet (Risperdal) 1 mg PO BID 04/28/20 09/23/24 History acetaminophen 650 mg 650 mg PO Q4H PRN pain (scale 09/23/24 09/23/24 History tablet,extended release score 1-3) amlodipine 10 mg tablet 10 mg PO DAILY 09/23/24 09/23/24 History ascorbic acid (vitamin C) 500 mg 500 mg PO BID 09/23/24 09/23/24 History tablet (Vitamin C) aspirin 81 mg tablet,delayed 81 mg PO DAILY 09/23/24 09/23/24 History release atorvastatin 40 mg tablet 40 mg PO QAM 09/23/24 09/23/24 History clobazam 10 mg tablet 10 mg PO HS 09/23/24 09/23/24 History diphenhydramine HCl 25 mg capsule 25 mg PO BID PRN rash 09/23/24 09/23/24 History (Allergy (diphenhydramine)) divalproex 250 mg tablet,delayed 750 mg PO BID 09/23/24 09/23/24 History release doxycycline monohydrate 100 mg 100 mg PO BID 09/23/24 09/23/24 History capsule ergocalciferol (vitamin D2) 1,250 50,000 unit PO WEEKLY 09/23/24 09/23/24 History mcg (50,000 unit) capsule fluticasone 250 mcg-salmeterol 50 2 inh inhalation BID 09/23/24 09/23/24 History mcg/dose blistr powdr for inhalation (Advair Diskus) ibuprofen 600 mg tablet 600 mg PO Q6H PRN fever or pain 09/23/24 09/23/24 History lamotrigine 100 mg tablet 100 mg PO BID 09/23/24 09/23/24 History lidocaine 4 % topical patch 1 patch topical DAILY PRN pain 09/23/24 09/23/24 History linaclotide 72 mcg capsule 72 mcg PO BID 09/23/24 09/23/24 History (Linzess) losartan 25 mg tablet 25 mg PO QAM 09/23/24 09/23/24 History multivit with minerals-iron 18 1 tablet PO QAM 09/23/24 09/23/24 History mg-folic ac 400 mcg-vit K 25 mcg tablet (Adults Multivitamin) polyethylene glycol 3350 17 17 g PO DAILY PRN constipation 09/23/24 09/23/24 History gram/dose oral powder (Miralax) sodium chloride 1,000 mg soluble 2,000 mg PO TID 09/23/24 09/23/24 History tablet triamcinolone acetonide 0.1 % 1 applic topical DAILY 09/23/24 09/23/24 History topical cream Allergies Allergy/AdvReac Type Severity Reaction Status Date / Time prochlorperazine (From Allergy Mild Rash Verified 09/23/24 03:52 Compazine) lithium Allergy Unknown Verified 09/23/24 03:52 Vital Signs Vital Signs - 24 hr 09/22/24 15:56 09/22/24 17:08 09/22/24 17:11 Temperature 98.9 F Pulse Rate 112 H 122 H 110 H Respiratory Rate 20 30 H 22 H Blood Pressure 141/53 H 151/137 H Pulse Oximetry 93 95 Oxygen Delivery Room Air 09/22/24 17:15 09/22/24 17:49 09/22/24 17:54 Temperature Pulse Rate 112 H 110 H 113 H Respiratory Rate 32 H 25 H 18 Blood Pressure Pulse Oximetry 90 97 Oxygen Delivery 09/22/24 18:00 09/22/24 18:22 09/22/24 18:30 Temperature Pulse Rate 114 H 116 H 115 H Respiratory Rate 25 H 20 17 Blood Pressure Pulse Oximetry 93 94 Oxygen Delivery 09/22/24 18:53 09/22/24 19:08 09/22/24 19:17 Temperature Pulse Rate 116 H 109 H Respiratory Rate 25 H 23 H Blood Pressure Pulse Oximetry 100 95 Oxygen Delivery 09/22/24 19:30 09/22/24 19:57 09/22/24 20:00 Temperature Pulse Rate Respiratory Rate Blood Pressure Pulse Oximetry 90 94 94 Oxygen Delivery 09/22/24 20:22 09/22/24 20:30 09/22/24 20:45 Temperature Pulse Rate Respiratory Rate Blood Pressure Pulse Oximetry 91 93 95 Oxygen Delivery 09/22/24 21:00 09/22/24 21:28 09/22/24 21:30 Temperature Pulse Rate Respiratory Rate Blood Pressure Pulse Oximetry 91 93 95 Oxygen Delivery 09/22/24 21:45 09/22/24 22:01 09/22/24 22:15 Temperature Pulse Rate Respiratory Rate Blood Pressure Pulse Oximetry 82 L 82 L 89 L Oxygen Delivery 09/22/24 22:30 09/22/24 22:45 09/22/24 23:15 Temperature Pulse Rate Respiratory Rate Blood Pressure Pulse Oximetry 90 89 L 91 Oxygen Delivery 09/23/24 00:00 09/23/24 00:23 09/23/24 01:12 Temperature Pulse Rate Respiratory Rate Blood Pressure Pulse Oximetry 93 92 95 Oxygen Delivery 09/23/24 01:45 09/23/24 02:04 09/23/24 02:25 Temperature Pulse Rate Respiratory Rate Blood Pressure 137/76 Pulse Oximetry 90 90 Oxygen Delivery 09/23/24 02:25 09/23/24 02:45 09/23/24 03:25 Temperature 101.0 F H Pulse Rate 72 118 H 75 Respiratory Rate 16 20 18 Blood Pressure 137/76 166/71 H Pulse Oximetry 95 93 Oxygen Delivery 09/23/24 03:35 09/23/24 04:00 09/23/24 04:00 Temperature Pulse Rate 73 105 H Respiratory Rate 18 Blood Pressure Pulse Oximetry Oxygen Delivery Room Air 09/23/24 06:00 Temperature 101.9 F H Pulse Rate 113 H Respiratory Rate 19 Blood Pressure 146/54 H Pulse Oximetry 91 Oxygen Delivery Exam Narrative: Weight 154.5 kg BMI 47.5 Const: Other: Morbidly obese, chronically ill-appearing, appears older than stated age, poor hygiene HENMT: Other: Mucous membranes are moist, no oral pharyngeal erythema, crowded posterior oropharynx, head is normocephalic atraumatic Eyes: Other: Pupils are it difficult to assess because when I tried to evaluate the patient's pupils he closes eyes tightly, no scleral icterus Neck: Other: Large neck circumference, difficult to assess for lymphadenopathy or thyromegaly due to patient positioning and cooperation Resp: Other: Conversational tachypnea, decreased breath sounds throughout anterior nieto Cardio: Other: Tachycardic, regular rhythm, 2+ bilateral radial pedal pulses GI: Other: Obese, nontender, positive bowel sounds, soft : Other: Pure wick catheter in place Skin: Other: Thickened, lichenified rash toe dorsal forearms bilaterally with smaller areas of rash across the trunk and lower extremities, large areas of thick flaking skin skin from the bilateral shins calves and feet bilaterally with underlying chronic erythema and thickening consistent with chronic venous stasis dermatitis Neuro: Other: Alert oriented to name and the fact that he is in the hospital, speech is clear but slow, no obvious facial asymmetry, exam limited due to patient's limited understanding of instructions from baseline intellectual disability, no localizing neurologic deficits noted given exam limits. Extrem: Other: Chronic venous stasis changes/skin changes as noted above, lipedema noted, no open wounds to lower extremities Psych: Other: Pleasantly confused, cooperative, anxious H&P: Results Labs Labs: Laboratory Tests 09/22/24 18:02 09/22/24 18:02 09/22/24 09/22/24 09/23/24 18:02 21:30 01:18 WBC 21.0 H RBC 3.95 L Hgb 11.8 L Hct 36.6 L MCV 92.7 MCH 29.9 MCHC 32.2 RDW 18.0 H Plt Count 278 MPV 7.8 Immature Gran % (Auto) 0.8 H Neut % (Auto) 80.9 H Lymph % (Auto) 7.4 L [place] % (Auto) 10.2 H Eos % (Auto) 0.4 Baso % (Auto) 0.3 Lymph # (Auto) 1.56 [place] # (Auto) 2.2 H Eos # (Auto) 0.1 Baso # (Auto) 0.1 Abs Immat Gran (auto) 0.17 H Absolute Neuts (auto) 17.0 H Absolute Nucleated RBC 0.050 H Nucleated RBC % 0.2 PT 14.3 INR 1.1 APTT 35.3 Sodium 137 Potassium 4.8 Chloride 100 Carbon Dioxide 30 Anion Gap 7 BUN 14 D Creatinine 0.88 Estim Creat Clear Calc 119 Estimated GFR > 60 Glucose 98 Lactic Acid 1.7 Calcium 9.6 Total Bilirubin 0.5 AST 37 ALT 29 Alkaline Phosphatase 103 C-Reactive Protein 7.3 H Total Protein 8.0 Albumin 3.7 Urine Color Yellow Urine Appearance Cloudy H Urine pH >=9.0 H Ur Specific [place] 1.021 Urine Protein 1+ H Urine Glucose (UA) Negative Urine Ketones Trace H Ur Blood (Man) Non-hemolyzed trace Urine Nitrate Negative Urine Bilirubin Negative Urine Urobilinogen 2.0 H Add Ur Microanalysis Reviewed Leukocyte Esterase Rfl Trace H Urine RBC 21-50 H Urine WBC 11-20 H Ur Squamous Epith Cells Few Urine Bacteria None seen Urine Casts 0-2 Influenza A (RT-PCR) Negative Influenza B (RT-PCR) Negative RSV (RT-PCR) Negative SARS-CoV-2 RNA (RT-PCR) Negative Impressions Chest X-Ray 09/22/24 17:31 IMPRESSION: 1. Chronic airspace opacities in left lower lung zone, likely rounded atelectasis. 2. Stable small loculated left pleural effusion. 3. Cardiomegaly. All imaging and EKGs personally reviewed and interpreted. And unless stated otherwise agree with radiologic and cardiology interpretation. Assessment and Plan Assessment and plan (1) Sepsis: Qualifiers: Sepsis type: sepsis due to unspecified organism Sepsis acute organ dysfunction status: without acute organ dysfunction Qualified Code(s): A41.9 - Sepsis, unspecified organism Code(s): A41.9 - Sepsis, unspecified organism Status: Acute (2) Pneumonia: Qualifiers: Pneumonia type: due to unspecified organism Laterality: left Lung location: lower lobe of lung Qualified Code(s): J18.9 - Pneumonia, unspecified organism Code(s): J18.9 - Pneumonia, unspecified organism Status: Acute (3) Snoring: Code(s): R06.83 - Snoring Status: Acute (4) BMI greater than 40: Status: Acute (5) Chronic pruritic rash in adult: Code(s): L29.89 - Other pruritus Status: Acute (6) Chronic venous stasis dermatitis: Code(s): I87.2 - Venous insufficiency (chronic) (peripheral) Status: Acute (7) Bipolar disorder: Qualifiers: Active/Remission status: remission status unspecified Qualified Code(s): F31.9 - Bipolar disorder, unspecified Code(s): F31.9 - Bipolar disorder, unspecified Status: Acute Plan Patient meets sepsis criteria with fever, tachycardia and intermittent tachypnea due to pneumonia. Patient been placed on empiric antibiotic therapy with Rocephin and azithromycin. Blood cultures have been obtained and are pending. COVID flu and RSV PCR were negative. Will monitor CBC. Will obtain urine Legionella pneumococcal antigen. Will provide Tylenol as needed for fever. Is on Advair at home. Will add DuoNeb q.6 hours as the patient likely has history of underlying COPD given prior history of smoking and Advair use. Patient does have history of psychogenic polydipsia and prior hyponatremic. Currently he has normal sodiums and is on salt tablets. Will monitor electrolyte panel. Patient is noted to be having episodes of hypoxia with sleep and was snoring with brief episodes of apnea when I arrived to the room. Will obtain ApneaLink. Patient may benefit from supple oxygen with sleeping. Will monitor. Will resume patient's home triamcinolone cream to his areas of thickened a rash. Will provide Eucerin cream and routine bathing to lower extremities to help with condition of lower extremity venous stasis dermatitis and dry skin. Will resume patient's home psychiatric medications. Quality VTE Prophylaxis VTE prophylaxis: pharmacologic ordered (Lovenox 40 mg q.12 hours due to the BMI greater than 40) Hospitalist [facility] Advance Care Plan I have confirmed that the patient's Advanced Care Plan is present, code status is documented, or surrogate decision maker is listed in patient medical record.: Yes Medication Reconciliation I have utilized all available resources to obtain, update and review the patients current medications (includes all prescriptions, OTC, herbals, cannabis, and nutritional supplements).: Yes
[2024-09-23] MEDS: amLODIPine BESYLATE 10 MG TABLET PO (09:14)
[2024-09-23] MEDS: DOCUSATE SODIUM 100 MG CAPSULE PO ×2 (09:14→16:49)
[2024-09-23] MEDS: DULoxetine HCL 60 MG CAPSULE.DR PO (09:14)
[2024-09-23] MEDS: ATORVASTATIN 40 MG TABLET PO (09:14)
[2024-09-23] MEDS: PANTOPRAZOLE 40 MG TABLET PO (09:14)
[2024-09-23] MEDS: MULTIVITAMINS /C LUTEIN (CENTRUM SILVER) TABLET *BKC 1 TAB PO (09:15)
[2024-09-23] MEDS: SODIUM CHLORIDE 1 GM TABLET 2 GM PO ×3 (09:15→16:49)
[2024-09-23] MEDS: LOSARTAN POTASSIUM 25 MG TABLET PO (09:15)
[2024-09-23] MEDS: OXcarbazepine 300 MG TABLET 600 MG PO ×3 (09:15→16:51)
[2024-09-23] MEDS: risperiDONE 1 MG TABLET PO ×2 (09:15→16:50)
[2024-09-23] MEDS: LINACLOTIDE 72 MCG CAPSULE PO ×2 (09:16→16:49)
[2024-09-23] MEDS: TRIAMCINOLONE ACET 0.1% CREAM 15 GM TUBE 1 APPLIC TOPICAL (09:17)
[2024-09-23 09:18] LABS: Basophils Absolute Auto 0.1 K/mm3 (0.0-0.1); Basophils Percent Auto 0.3 % (0.2-1.2); Eosinophils Percent Auto 0.1 % (0-4.4); Hematocrit 37.1 % (42.0-52.0); Hemoglobin 11.7 g/dL (14.0-18.0); Immature Granulocyte Absolute 0.11 K/mm3 (0.00-0.031); Immature Granulocyte Percent A 0.5 % (0-0.5); Lymphocytes Absolute Auto 3.04 K/mm3 (0.9-3.2); Lymphocytes Percent Auto 13.1 % (18.3-44.2); Mean Corpuscular HGB Conc 31.5 g/dl (32-36); Mean Corpuscular Hemoglobin 30.2 pg (26-34); Mean Corpuscular Volume 95.9 fl (80-100); Mean Platelet Volume 8.6 fl (7.4-10.4); Monocytes Absolute Auto 2.3 K/mm3 (0.1-0.6); Neutrophils Absolute Auto 17.6 K/mm3 (1.3-6.7); Nucleated Red Blood Cells Perc 0.2 % (0.0-0.2); Platelet Count Result 228 k/mm3 (150-375); Red Blood Count 3.87 M/mm3 (4.6-6.20); Red Cell Distribution Width 18.8 % (11.5-14.5); White Blood Count 23.2 K/mm3 (4.5-10.0)
[2024-09-23] MEDS: DIVALPROEX SODIUM DR 250 MG TABEC 750 MG PO ×2 (09:18→17:13)
[2024-09-23] MEDS: lamoTRIgine 25 MG TABLET PO ×2 (09:19→16:50)
[2024-09-23] MEDS: BRIMONIDINE TARTRATE 0.1% 5 ML OPHTH DROPS 1 DROP EACH EYE ×3 (09:21→16:51)
[2024-09-23] MEDS: lamoTRIgine 100 MG TABLET PO ×2 (09:23→16:49)
[2024-09-23 09:29] LABS: Anion Gap 14 mmol/L (4-12); Blood Urea Nitrogen 17 mg/dL (9-20); Calcium 9.1 mg/dL (8.4-10.2); Carbon Dioxide 22 mmol/L (22-30); Chloride 101 mmol/L (98-107); Estimated CRCL calculation 119 ml/min; Estimated Glomerular Filt Rate > 60; Glucose 84 mg/dL (65-110); Potassium 4.7 mmol/L (3.4-5.0); Sodium 137 mmol/L (137-145)
[2024-09-23] MEDS: busPIRone HCL 5 MG TABLET 15 MG PO ×2 (09:33→16:50)
--- NOTE | 2024-09-23 10:21 | PM.CNPUL ---
Assessment and Plan Assessment and plan (1) Sepsis: Qualifiers: Sepsis type: sepsis due to unspecified organism Sepsis acute organ dysfunction status: without acute organ dysfunction Qualified Code(s): A41.9 - Sepsis, unspecified organism Code(s): A41.9 - Sepsis, unspecified organism Status: Acute (2) Pleural effusion: Code(s): J90 - Pleural effusion, not elsewhere classified Status: Acute Assessment and Plan: This is a 54-year-old man with a history of morbid obesity and no previous episodes of respiratory failure. He presented with fever, hand tremors, an extensive scaling rash on his extremities and trunk, marked leukocytosis, and a chronic pleural effusion on the left side. A review of chest X-rays over the past month indicates that the pleural effusion was first observed approximately one month ago and has not increased in size according to the most recent X-ray. Given the patient's widespread skin rash, which is likely infected, possibly with Staphylococcus aureus, it is probable that the fever is related to a cellulitis skin infection rather than a left-sided empyema. Although the size of the left pleural effusion has remained relatively stable over the past four weeks, the possibility of empyema needs to be ruled out through thoracentesis. Plan: Discontinue ceftriaxone and initiate vancomycin therapy to address potential cellulitis due to Staphylococcus aureus. MRSA culture results are pending. Thoracentesis has been ordered by the hospitalist to evaluate the pleural effusion further. We will continue to monitor the patient closely in collaboration with you. (3) Bipolar disorder: Qualifiers: Active/Remission status: remission status unspecified Qualified Code(s): F31.9 - Bipolar disorder, unspecified Code(s): F31.9 - Bipolar disorder, unspecified Status: Acute History of Present Illness History of Present Illness Consult date: 09/23/24 Chief complaint: Acute hypoxic respiratory failure, pneumonia Narrative: This consultation addresses a left pleural effusion in a 54-year-old man with a complex medical history, including obesity, bipolar disorder, intellectual disability, essential tremor, seizures, hypertension, hyperlipidemia, glaucoma, and GERD. Information is primarily derived from his medical records due to his status as a poor historian. He reported being brought to the emergency room for shaking episodes, with no respiratory symptoms like cough, wheezing, or hemoptysis, and has had a fever since hospital admission. The patient resides in a [facility] and was evaluated twice last month following a fall. Previous chest X-rays and a CT scan showed a small pleural effusion with no other parenchymal abnormalities. On admission, a chest X-ray confirmed a small left lower lobe pleural effusion. His white blood cell count was elevated over 20,000 with a left shift, despite antibiotic treatment. He has an extensive scaling rash on his feet, other lower extremities, left forearm, and posterior thoracic area, though he could not provide additional information about it, and past ER evaluations did not mention the rash. When asked about using oxygen or a CPAP device for his obesity and potential sleep-disordered breathing, the patient stated he uses neither. Recent chemistry tests indicated his total bicarbonate levels were mostly not elevated. 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 it is sodium chloride replacement Chronic venous stasis dermatitis Chronic pruritic rash in adult BMI greater than 40 Essential tremor Vitamin D deficiency Chronic constipation Hyperlipidemia Glaucoma Impulse control disorder Moderate intellectual disabilities Anxiety GERD (gastroesophageal reflux disease) Hypertension Bipolar disorder Epilepsy Surgical History Surgical History (Updated 09/23/24 @ 08:33 by Susana Singh DO) Surgical history unknown Family History Family History Mother Other Unknown family medical history Social History Social History (Updated 09/23/24 @ 08:42 by Susana Singh DO) Social History: The patient resides at [facility]. He is a former smoker but cannot give me details about the amount or duration of his smoking history. He denies prior alcohol use. 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 Code status: Full code Healthcare power of mergers and acquisitions attorney/state guardian: Rodriguez Del Angel Smoking status: Former smoker Tobacco type: cigarettes Alcohol intake: never Substance use: never Do You Feel Safe in your Home?: Yes Lack of Transportation: No Lack of Food: Never True Current Housing: I Have Housing Concerned About Future Housing: No Difficulty Paying Gas/Electric Bills: No Difficulty Paying for Meds: No Currently Unemployed: No Education: Don't Know Difficulty w/ Childcare or Family Care: No Living arrangements: [facility] Occupation/Education: other Additional occupation/education comments: Disabled Gender identity (if verbalized by the patient): Male Spiritual care concerns: No Agree to blood products: Yes Meds Home Medications and Allergies Home Medications ?Medication ?Instructions ?Recorded ?Confirmed ?Type albuterol sulfate 90 mcg/actuation 2 inh inhalation Q4H PRN shortness 04/28/20 09/23/24 History aerosol inhaler (Ventolin HFA) of breath or wheezing brimonidine 0.1 % eye drops 1 drp EACH EYE TID 04/28/20 09/23/24 History (Alphagan P) buspirone 15 mg tablet 15 mg PO BID 04/28/20 09/23/24 History clobazam 10 mg tablet 10 mg PO DAILY@1700 04/28/20 09/23/24 History divalproex 500 mg tablet,delayed 500 mg PO Q12H 04/28/20 09/23/24 History release docusate sodium 100 mg tablet 100 mg PO BID 04/28/20 09/23/24 History duloxetine 60 mg capsule,delayed 60 mg PO DAILY 04/28/20 09/23/24 History release lamotrigine 25 mg tablet 25 mg PO BID 04/28/20 09/23/24 History latanoprost 0.005 % eye drops 1 drp ophthalmic (eye) HS 04/28/20 09/23/24 History omeprazole 20 mg capsule,delayed 20 mg PO DAILY 04/28/20 09/23/24 History release oxcarbazepine 600 mg tablet 600 mg PO TID 04/28/20 09/23/24 History risperidone 1 mg tablet (Risperdal) 1 mg PO BID 04/28/20 09/23/24 History acetaminophen 650 mg 650 mg PO Q4H PRN pain (scale 09/23/24 09/23/24 History tablet,extended release score 1-3) amlodipine 10 mg tablet 10 mg PO DAILY 09/23/24 09/23/24 History ascorbic acid (vitamin C) 500 mg 500 mg PO BID 09/23/24 09/23/24 History tablet (Vitamin C) aspirin 81 mg tablet,delayed 81 mg PO DAILY 09/23/24 09/23/24 History release atorvastatin 40 mg tablet 40 mg PO QAM 09/23/24 09/23/24 History clobazam 10 mg tablet 10 mg PO HS 09/23/24 09/23/24 History diphenhydramine HCl 25 mg capsule 25 mg PO BID PRN rash 09/23/24 09/23/24 History (Allergy (diphenhydramine)) divalproex 250 mg tablet,delayed 750 mg PO BID 09/23/24 09/23/24 History release doxycycline monohydrate 100 mg 100 mg PO BID 09/23/24 09/23/24 History capsule ergocalciferol (vitamin D2) 1,250 50,000 unit PO WEEKLY 09/23/24 09/23/24 History mcg (50,000 unit) capsule fluticasone 250 mcg-salmeterol 50 2 inh inhalation BID 09/23/24 09/23/24 History mcg/dose blistr powdr for inhalation (Advair Diskus) ibuprofen 600 mg tablet 600 mg PO Q6H PRN fever or pain 09/23/24 09/23/24 History lamotrigine 100 mg tablet 100 mg PO BID 09/23/24 09/23/24 History lidocaine 4 % topical patch 1 patch topical DAILY PRN pain 09/23/24 09/23/24 History linaclotide 72 mcg capsule 72 mcg PO BID 09/23/24 09/23/24 History (Linzess) losartan 25 mg tablet 25 mg PO QAM 09/23/24 09/23/24 History multivit with minerals-iron 18 1 tablet PO QAM 09/23/24 09/23/24 History mg-folic ac 400 mcg-vit K 25 mcg tablet (Adults Multivitamin) polyethylene glycol 3350 17 17 g PO DAILY PRN constipation 09/23/24 09/23/24 History gram/dose oral powder (Miralax) sodium chloride 1,000 mg soluble 2,000 mg PO TID 09/23/24 09/23/24 History tablet triamcinolone acetonide 0.1 % 1 applic topical DAILY 09/23/24 09/23/24 History topical cream Allergies Allergy/AdvReac Type Severity Reaction Status Date / Time prochlorperazine (From Allergy Mild Rash Verified 09/23/24 03:52 Compazine) lithium Allergy Unknown Verified 09/23/24 03:52 Vital Signs Vital Signs - 24 hr 09/22/24 15:56 09/22/24 17:08 09/22/24 17:11 Temperature 37.2 C Pulse Rate 112 H 122 H 110 H Respiratory Rate 20 30 H 22 H Blood Pressure 141/53 H 151/137 H Pulse Oximetry 93 95 Oxygen Delivery Room Air 09/22/24 17:15 09/22/24 17:49 09/22/24 17:54 Temperature Pulse Rate 112 H 110 H 113 H Respiratory Rate 32 H 25 H 18 Blood Pressure Pulse Oximetry 90 97 Oxygen Delivery 09/22/24 18:00 09/22/24 18:22 09/22/24 18:30 Temperature Pulse Rate 114 H 116 H 115 H Respiratory Rate 25 H 20 17 Blood Pressure Pulse Oximetry 93 94 Oxygen Delivery 09/22/24 18:53 09/22/24 19:08 09/22/24 19:17 Temperature Pulse Rate 116 H 109 H Respiratory Rate 25 H 23 H Blood Pressure Pulse Oximetry 100 95 Oxygen Delivery 09/22/24 19:30 09/22/24 19:57 09/22/24 20:00 Temperature Pulse Rate Respiratory Rate Blood Pressure Pulse Oximetry 90 94 94 Oxygen Delivery 09/22/24 20:22 09/22/24 20:30 09/22/24 20:45 Temperature Pulse Rate Respiratory Rate Blood Pressure Pulse Oximetry 91 93 95 Oxygen Delivery 09/22/24 21:00 09/22/24 21:28 09/22/24 21:30 Temperature Pulse Rate Respiratory Rate Blood Pressure Pulse Oximetry 91 93 95 Oxygen Delivery 09/22/24 21:45 09/22/24 22:01 09/22/24 22:15 Temperature Pulse Rate Respiratory Rate Blood Pressure Pulse Oximetry 82 L 82 L 89 L Oxygen Delivery 09/22/24 22:30 09/22/24 22:45 09/22/24 23:15 Temperature Pulse Rate Respiratory Rate Blood Pressure Pulse Oximetry 90 89 L 91 Oxygen Delivery 09/23/24 00:00 09/23/24 00:23 09/23/24 01:12 Temperature Pulse Rate Respiratory Rate Blood Pressure Pulse Oximetry 93 92 95 Oxygen Delivery 09/23/24 01:45 09/23/24 02:04 09/23/24 02:25 Temperature Pulse Rate Respiratory Rate Blood Pressure 137/76 Pulse Oximetry 90 90 Oxygen Delivery 09/23/24 02:25 09/23/24 02:45 09/23/24 03:25 Temperature 38.3 C H Pulse Rate 72 118 H 75 Respiratory Rate 16 20 18 Blood Pressure 137/76 166/71 H Pulse Oximetry 95 93 Oxygen Delivery 09/23/24 03:35 09/23/24 04:00 09/23/24 04:00 Temperature Pulse Rate 73 105 H Respiratory Rate 18 Blood Pressure Pulse Oximetry Oxygen Delivery Room Air 09/23/24 06:00 09/23/24 09:40 09/23/24 09:40 Temperature 38.8 C H Pulse Rate 113 H 104 H Respiratory Rate 19 18 Blood Pressure 146/54 H Pulse Oximetry 91 92 Oxygen Delivery Room Air 09/23/24 09:50 Temperature Pulse Rate 100 Respiratory Rate 18 Blood Pressure Pulse Oximetry Oxygen Delivery Exam Narrative: GENERAL APPEARANCE: Well developed, well nourished, alert and cooperative, morbidly obese who appear to be in no acute respiratory distress while breathing room air SKIN: Extensive scaling rash covering feet, right upper thigh left forearm and right posterior aspect of thoracic chest. HEENT: Sclerae anicteric and conjunctivae pink and moist. Extraocular movements were intact and pupils were equal, round. Dry oral mucosa NECK: Supple. There was no thyroid enlargement, and no tenderness, or masses were felt. CHEST: Decreased breath sounds left chest posterior no wheezing LUNGS: Auscultation of the lungs revealed normal breath sounds without any other adventitious sounds or rubs. CARDIAC: There was a regular rate and rhythm without any murmurs, gallops, rubs. ABDOMEN: Soft and nontender with normal bowel sounds. LYMPH NODES: No lymphadenopathy was appreciated in the neck. EXTREMITIES: No cyanosis, clubbing or edema. Skin rash as above NEUROLOGIC: Alert and oriented. Normal affect. Results Laboratory Findings 09/23/24 09:13 09/23/24 09:13 ABG, PT/INR, D-dimer: PT/INR, D-dimer PT 14.3 Seconds (11.1-14.7) 09/22/24 18:02 INR 1.1 09/22/24 18:02 Abnormal lab findings: Abnormal Labs 09/22/24 09/22/24 09/23/24 18:02 21:30 09:13 WBC 21.0 H 23.2 H RBC 3.95 L 3.87 L Hgb 11.8 L 11.7 L Hct 36.6 L 37.1 L MCHC 31.5 L RDW 18.0 H 18.8 H Immature Gran % (Auto) 0.8 H Neut % (Auto) 80.9 H 76.0 H Lymph % (Auto) 7.4 L 13.1 L Avery % (Auto) 10.2 H 10.0 H Avery # (Auto) 2.2 H 2.3 H Abs Immat Gran (auto) 0.17 H 0.11 H Absolute Neuts (auto) 17.0 H 17.6 H Absolute Nucleated RBC 0.050 H 0.050 H Anion Gap 14 H C-Reactive Protein 7.3 H Urine Appearance Cloudy H Urine pH >=9.0 H Urine Protein 1+ H Urine Ketones Trace H Urine Urobilinogen 2.0 H Leukocyte Esterase Rfl Trace H Urine RBC 21-50 H Urine WBC 11-20 H
--- NOTE | 2024-09-23 12:04 | PC.NURSE ---
Manager Corporate Responsibility spoke with Jamin at [facility] to verify the depakote dose correct order is 750mg po BID
[2024-09-23] MEDS: EUCERIN CREAM 120 GM JAR 1 APPLIC TOPICAL (12:05)
[2024-09-23] MEDS: VANCOMYCIN 1,500 MG/NS 500 ML 1,500 MG/500 ML BAG 250 MG IVPB ×2 (12:05→22:33)
--- NOTE | 2024-09-23 12:22 | PM.IMPN ---
Progress Note: A&P Assessment and Plan (1) Sepsis: Qualifiers: Sepsis type: sepsis due to unspecified organism Sepsis acute organ dysfunction status: without acute organ dysfunction Qualified Code(s): A41.9 - Sepsis, unspecified organism Code(s): A41.9 - Sepsis, unspecified organism Status: Acute (2) Pneumonia: Qualifiers: Laterality: left Lung location: lower lobe of lung Pneumonia type: due to unspecified organism Qualified Code(s): J18.9 - Pneumonia, unspecified organism Code(s): J18.9 - Pneumonia, unspecified organism Status: Acute (3) Snoring: Code(s): R06.83 - Snoring Status: Acute (4) BMI greater than 40: Status: Acute (5) Chronic pruritic rash in adult: Code(s): L29.89 - Other pruritus Status: Acute (6) Chronic venous stasis dermatitis: Code(s): I87.2 - Venous insufficiency (chronic) (peripheral) Status: Acute (7) Bipolar disorder: Qualifiers: Active/Remission status: remission status unspecified Qualified Code(s): F31.9 - Bipolar disorder, unspecified Code(s): F31.9 - Bipolar disorder, unspecified Status: Acute Plan Sepsis, improving Cellulitis vs pneumonia/Empyema Patient has multiple widespread skin rashes and erythema Blood culture growing GPC in chains in both bottles Continue Vancomycin F/u with thoracentesis and fluid studies monitor Bacteremia Cellulitis vs Pneumonia/Empyema F/u with culture continue Vancomycin Loculated left pleural effusion and chronic left lung opacities r/o infection thoracentesis ordered continue above Vancomycin Pulmonology consulted Psychogenic Hyponatremia resolved continue salt tablets Chronic pruritics Continue home triamcinolone cream Chronic venous stasis continue compression stocks monitor Epilepsy continue home Deparkote monitor HTN continue home meds DVT prophylaxis on Sq Lovenox Subjective Date/time seen: 09/23/24 12:22 Interval history: Patient comfortable at bedside Review of Systems Review of Systems: Review of systems limited due to the patient's baseline intellectual disability and psychiatric illness. Exam Narrative: Weight 154.5 kg BMI 47.5 Const: Other: Morbidly obese, chronically ill-appearing, appears older than stated age, poor hygiene HENMT: Other: Mucous membranes are moist, no oral pharyngeal erythema, crowded posterior oropharynx, head is normocephalic atraumatic Eyes: Other: Pupils are it difficult to assess because when I tried to evaluate the patient's pupils he closes eyes tightly, no scleral icterus Neck: Other: Large neck circumference, difficult to assess for lymphadenopathy or thyromegaly due to patient positioning and cooperation Resp: Other: Conversational tachypnea, decreased breath sounds throughout anterior nieto Cardio: Other: Tachycardic, regular rhythm, 2+ bilateral radial pedal pulses GI: Other: Obese, nontender, positive bowel sounds, soft : Other: Pure wick catheter in place Skin: Other: Thickened, lichenified rash toe dorsal forearms bilaterally with smaller areas of rash across the trunk and lower extremities, large areas of thick flaking skin skin from the bilateral shins calves and feet bilaterally with underlying chronic erythema and thickening consistent with chronic venous stasis dermatitis Neuro: Other: Alert oriented to name and the fact that he is in the hospital, speech is clear but slow, no obvious facial asymmetry, exam limited due to patient's limited understanding of instructions from baseline intellectual disability, no localizing neurologic deficits noted given exam limits. Extrem: Other: Chronic venous stasis changes/skin changes as noted above, lipedema noted, no open wounds to lower extremities Psych: Other: Pleasantly confused, cooperative, anxious Objective Data Vital Signs Vital Signs: Vital Signs - 24 hr 09/22/24 15:56 09/22/24 17:08 09/22/24 17:11 Temperature 98.9 F Pulse Rate 112 H 122 H 110 H Respiratory Rate 20 30 H 22 H Blood Pressure 141/53 H 151/137 H Pulse Oximetry 93 95 Oxygen Delivery Room Air 09/22/24 17:15 09/22/24 17:49 09/22/24 17:54 Temperature Pulse Rate 112 H 110 H 113 H Respiratory Rate 32 H 25 H 18 Blood Pressure Pulse Oximetry 90 97 Oxygen Delivery 09/22/24 18:00 09/22/24 18:22 09/22/24 18:30 Temperature Pulse Rate 114 H 116 H 115 H Respiratory Rate 25 H 20 17 Blood Pressure Pulse Oximetry 93 94 Oxygen Delivery 09/22/24 18:53 09/22/24 19:08 09/22/24 19:17 Temperature Pulse Rate 116 H 109 H Respiratory Rate 25 H 23 H Blood Pressure Pulse Oximetry 100 95 Oxygen Delivery 09/22/24 19:30 09/22/24 19:57 09/22/24 20:00 Temperature Pulse Rate Respiratory Rate Blood Pressure Pulse Oximetry 90 94 94 Oxygen Delivery 09/22/24 20:22 09/22/24 20:30 09/22/24 20:45 Temperature Pulse Rate Respiratory Rate Blood Pressure Pulse Oximetry 91 93 95 Oxygen Delivery 09/22/24 21:00 09/22/24 21:28 09/22/24 21:30 Temperature Pulse Rate Respiratory Rate Blood Pressure Pulse Oximetry 91 93 95 Oxygen Delivery 09/22/24 21:45 09/22/24 22:01 09/22/24 22:15 Temperature Pulse Rate Respiratory Rate Blood Pressure Pulse Oximetry 82 L 82 L 89 L Oxygen Delivery 09/22/24 22:30 09/22/24 22:45 09/22/24 23:15 Temperature Pulse Rate Respiratory Rate Blood Pressure Pulse Oximetry 90 89 L 91 Oxygen Delivery 09/23/24 00:00 09/23/24 00:23 09/23/24 01:12 Temperature Pulse Rate Respiratory Rate Blood Pressure Pulse Oximetry 93 92 95 Oxygen Delivery 09/23/24 01:45 09/23/24 02:04 09/23/24 02:25 Temperature Pulse Rate Respiratory Rate Blood Pressure 137/76 Pulse Oximetry 90 90 Oxygen Delivery 09/23/24 02:25 09/23/24 02:45 09/23/24 03:25 Temperature 101.0 F H Pulse Rate 72 118 H 75 Respiratory Rate 16 20 18 Blood Pressure 137/76 166/71 H Pulse Oximetry 95 93 Oxygen Delivery 09/23/24 03:35 09/23/24 04:00 09/23/24 04:00 Temperature Pulse Rate 73 105 H Respiratory Rate 18 Blood Pressure Pulse Oximetry Oxygen Delivery Room Air 09/23/24 06:00 09/23/24 08:04 09/23/24 09:33 Temperature 101.9 F H Pulse Rate 113 H 100 100 Respiratory Rate 19 18 Blood Pressure 146/54 H Pulse Oximetry 91 92 Oxygen Delivery Room Air 09/23/24 09:40 09/23/24 09:40 09/23/24 09:50 Temperature Pulse Rate 104 H 100 Respiratory Rate 18 18 Blood Pressure Pulse Oximetry 92 Oxygen Delivery Room Air Intake/Output Intake/Output: Intake & Output 09/20/24 09/21/24 09/22/24 09/23/24 23:59 23:59 23:59 23:59 Intake Total 658 Output Total 500 250 Balance -500 408 Meds/Results Medications: Active Medications Generic Name Dose Route Start Last Admin Trade Name Freq PRN Reason Stop Dose Admin Acetaminophen 650 mg 09/23/24 00:50 Acetaminophen 325 Mg Tablet PO Q4H PRN Mild Pain (1-3) or Fever Albuterol/Ipratropium 3 ml 09/23/24 02:00 09/23/24 09:40 Ipratropium 0.5 Mg/Albuterol Sulfate 2.5 Mg Ampul.Neb 3 Ml INHALATION 3 ml Q6HRT MARYANNE Administration Amlodipine Besylate 10 mg 09/23/24 09:00 09/23/24 09:14 Amlodipine Besylate 10 Mg Tablet PO 10 mg DAILY MARYANNE Administration Aspirin 81 mg 09/23/24 09:00 09/23/24 09:16 Aspirin 81 Mg Enteric Tablet PO Not Given DAILY MARYANNE Atorvastatin Calcium 40 mg 09/23/24 09:00 09/23/24 09:14 Atorvastatin 40 Mg Tablet PO 40 mg QAM MARYANNE Administration Brimonidine Tartrate 1 drop 09/23/24 09:00 09/23/24 12:07 Brimonidine Tartrate 0.1% 5 Ml Ophth Drops EACH EYE 1 drop TID MARYANNE Administration Buspirone HCl 15 mg 09/23/24 09:00 09/23/24 09:33 Buspirone Hcl 5 Mg Tablet PO 15 mg BID MARYANNE Administration Clobazam 10 mg 09/23/24 17:00 Clobazam (*Crx) 10 Mg Tablet PO DAILY@1700 MARYANNE Clobazam 10 mg 09/23/24 21:00 Clobazam (*Crx) 10 Mg Tablet PO HS MARYANNE Diphenhydramine HCl 25 mg 09/23/24 08:17 Diphenhydramine Hcl Cap 25 Mg Capsule PO BID PRN rash Divalproex Sodium 750 mg 09/23/24 09:00 09/23/24 09:[address] 250 Mg Tabec PO 750 mg BID MARYANNE Administration Docusate Sodium 100 mg 09/23/24 09:00 09/23/24 09:14 Docusate Sodium 100 Mg Capsule PO 100 mg BID MARYANNE Administration Duloxetine HCl 60 mg 09/23/24 09:00 09/23/24 09:14 Duloxetine Hcl 60 Mg Capsule.Dr PO 60 mg DAILY MARYANNE Administration Enoxaparin Sodium 40 mg 09/23/24 09:00 09/23/24 09:17 Enoxaparin 40 Mg/0.4 Ml Syringe SUB-Q Not Given Q12HR [facility] Azithromycin 500 mg in 250 mls @ 250 mls/hr 09/24/24 01:00 Zithromax IVPB Q24H MARYANNE Vancomycin HCl 1,500 mg in 500 mls @ 250 mls/hr 09/23/24 11:00 09/23/24 12:05 Vancomycin 1,500 Mg/Ns 500 Ml IVPB 250 mls/hr Q12H MARYANNE Administration Ibuprofen 600 mg 09/23/24 08:17 Ibuprofen 600 Mg Tablet PO Q6H PRN Pain 4-6 or fever Lamotrigine 25 mg 09/23/24 09:00 09/23/24 09:19 Lamotrigine 25 Mg Tablet PO 25 mg BID MARYANNE Administration Lamotrigine 100 mg 09/23/24 09:00 09/23/24 09:23 Lamotrigine 100 Mg Tablet PO 100 mg BID [facility] Administration Latanoprost 1 drop 09/23/24 21:00 Latanoprost 0.005% Op Soln 2.5 Ml Btl EACH EYE HS [facility] Lidocaine 1 patch 09/23/24 08:17 Lidocaine 5% Patch TOPICAL DAILY PRN pain Linaclotide 72 mcg 09/23/24 08:30 09/23/24 09:16 Linaclotide 72 Mcg Capsule PO 72 mcg BIDAC [facility] Administration Losartan Potassium 25 mg 09/23/24 09:00 09/23/24 09:15 Losartan Potassium 25 Mg Tablet PO 25 mg QAM [facility] Administration Multi-Ingred Cream/Lotion/Oil/Oint 1 applic 09/23/24 12:00 09/23/24 12:05 Eucerin Cream 120 Gm Jar TOPICAL 1 applic Q24H [facility] Administration Multivitamins/Minerals 1 tab 09/23/24 09:00 09/23/24 09:15 Multivitamins /C Lutein (Centrum Silver) Tablet *Bkc PO 1 tab QAM [facility] Administration Oxcarbazepine 600 mg 09/23/24 09:00 09/23/24 12:15 Oxcarbazepine 300 Mg Tablet PO 600 mg TID [facility] Administration Pantoprazole Sodium 40 mg 09/23/24 09:00 09/23/24 09:14 Pantoprazole 40 Mg Tablet PO 40 mg QAM MARYANNE Administration Polyethylene Glycol 17 gm 09/23/24 08:22 Polyethylene Glycol 3350 17 Gm Powd.Pack PO DAILY PRN constipation Risperidone 1 mg 09/23/24 09:00 09/23/24 09:15 Risperidone 1 Mg Tablet PO 1 mg BID MARYANNE Administration Fluticasone/Salmeterol 2 puff 09/23/24 09:00 Fluticasone/Salmeterol 115-21 Mcg Inhaler 1 Puff INHALATION Q12HRT [facility] Sodium Chloride 2 gm 09/23/24 09:00 09/23/24 12:14 Sodium Chloride 1 Gm Tablet PO 2 gm TID MARYANNE Administration Triamcinolone Acetonide 1 applic 09/23/24 09:00 09/23/24 09:17 Triamcinolone Acet 0.1% Cream 15 Gm Tube TOPICAL 1 applic DAILY MARYANNE Administration Radiology Results: ITS Impressions Chest X-Ray 09/22/24 17:31 IMPRESSION: 1. Chronic airspace opacities in left lower lung zone, likely rounded atelectasis. 2. Stable small loculated left pleural effusion. 3. Cardiomegaly. Labs Labs: Laboratory Results - last 24 hr 09/22/24 09/22/24 09/23/24 18:02 21:30 01:18 WBC 21.0 H RBC 3.95 L Hgb 11.8 L Hct 36.6 L MCV 92.7 MCH 29.9 MCHC 32.2 RDW 18.0 H Plt Count 278 MPV 7.8 Immature Gran % (Auto) 0.8 H Neut % (Auto) 80.9 H Lymph % (Auto) 7.4 L [place] % (Auto) 10.2 H Eos % (Auto) 0.4 Baso % (Auto) 0.3 Lymph # (Auto) 1.56 [place] # (Auto) 2.2 H Eos # (Auto) 0.1 Baso # (Auto) 0.1 Abs Immat Gran (auto) 0.17 H Absolute Neuts (auto) 17.0 H Absolute Nucleated RBC 0.050 H Nucleated RBC % 0.2 PT 14.3 INR 1.1 APTT 35.3 Sodium 137 Potassium 4.8 Chloride 100 Carbon Dioxide 30 Anion Gap 7 BUN 14 D Creatinine 0.88 Estim Creat Clear Calc 119 Estimated GFR > 60 Glucose 98 Lactic Acid 1.7 Calcium 9.6 Total Bilirubin 0.5 AST 37 ALT 29 Alkaline Phosphatase 103 C-Reactive Protein 7.3 H Total Protein 8.0 Albumin 3.7 Urine Color Yellow Urine Appearance Cloudy H Urine pH >=9.0 H Ur Specific [place] 1.021 Urine Protein 1+ H Urine Glucose (UA) Negative Urine Ketones Trace H Ur Blood (Man) Non-hemolyzed trace Urine Nitrate Negative Urine Bilirubin Negative Urine Urobilinogen 2.0 H Add Ur Microanalysis Reviewed Leukocyte Esterase Rfl Trace H Urine RBC 21-50 H Urine WBC 11-20 H Ur Squamous Epith Cells Few Urine Bacteria None seen Urine Casts 0-2 Influenza A (RT-PCR) Negative Influenza B (RT-PCR) Negative RSV (RT-PCR) Negative SARS-CoV-2 RNA (RT-PCR) Negative 09/23/24 09:13 WBC 23.2 H RBC 3.87 L Hgb 11.7 L Hct 37.1 L MCV 95.9 MCH 30.2 MCHC 31.5 L RDW 18.8 H Plt Count 228 MPV 8.6 Immature Gran % (Auto) 0.5 Neut % (Auto) 76.0 H Lymph % (Auto) 13.1 L [place] % (Auto) 10.0 H Eos % (Auto) 0.1 Baso % (Auto) 0.3 Lymph # (Auto) 3.04 [place] # (Auto) 2.3 H Eos # (Auto) 0.0 Baso # (Auto) 0.1 Abs Immat Gran (auto) 0.11 H Absolute Neuts (auto) 17.6 H Absolute Nucleated RBC 0.050 H Nucleated RBC % 0.2 PT INR APTT Sodium 137 Potassium 4.7 Chloride 101 Carbon Dioxide 22 Anion Gap 14 H BUN 17 Creatinine 0.97 Estim Creat Clear Calc 119 Estimated GFR > 60 Glucose 84 Lactic Acid Calcium 9.1 Total Bilirubin AST ALT Alkaline Phosphatase C-Reactive Protein Total Protein Albumin Urine Color Urine Appearance Urine pH Ur Specific [place] Urine Protein Urine Glucose (UA) Urine Ketones Ur Blood (Man) Urine Nitrate Urine Bilirubin Urine Urobilinogen Add Ur Microanalysis Leukocyte Esterase Rfl Urine RBC Urine WBC Ur Squamous Epith Cells Urine Bacteria Urine Casts Influenza A (RT-PCR) Influenza B (RT-PCR) RSV (RT-PCR) SARS-CoV-2 RNA (RT-PCR) Quality VTE Prophylaxis VTE prophylaxis: pharmacologic ordered (Lovenox 40 mg q.12 hours due to the BMI greater than 40)
[2024-09-23 14:12] LABS: MRSA (PCR) DETECTED (NOT DETECTE)
--- NOTE | 2024-09-23 14:23 | PC.NURSE ---
To ultrasound via stretcher for thoracentesis.
--- NOTE | 2024-09-23 15:05 | PC.NURSE ---
Returned from ultrasound via stretcher.
[2024-09-23 15:31] LABS: pH Pleural Fluid 7.361 (7.210-7.500)
--- NOTE | 2024-09-23 15:38 | PCRCNOTE ---
Window of time for administration has passed. See next scheduled administration.
[2024-09-23] MEDS: cloBAZam (*CRX) 10 MG TABLET PO ×2 (16:49→20:37)
[2024-09-23] MEDS: IBUPROFEN 600 MG TABLET PO (17:06)
[2024-09-23] MEDS: ENOXAPARIN 40 MG/0.4 ML SYRINGE SUB-Q (20:37)
[2024-09-23] MEDS: LATANOPROST 0.005% OP SOLN 2.5 ML BTL 1 DROP EACH EYE (20:37)
[2024-09-23] MEDS: FLUTICASONE/SALMETEROL 115-21 MCG INHALER 1 PUFF 2 PUFF INHALATION (21:19)
[2024-09-24] VITALS (16 sets, daily range): BP systolic 108–135; BP diastolic 35–69; PULSE 78–92; RESP 18–20; TEMP 36.4; O2SAT 94–99
[2024-09-24] MEDS: AZITHROMYCIN 500 MG/NS 250 ML 500 MG/250 ML BAG 250 MG IVPB (00:57)
[2024-09-24] MEDS: LINACLOTIDE 72 MCG CAPSULE PO ×2 (05:47→17:06)
[2024-09-24 05:52] LABS: Basophils Absolute Auto 0.1 K/mm3 (0.0-0.1); Basophils Percent Auto 0.4 % (0.2-1.2); Eosinophils Absolute Auto 0.4 K/mm3 (0-0.3); Hematocrit 32.6 % (42.0-52.0); Hemoglobin 9.9 g/dL (14.0-18.0); Immature Granulocyte Absolute 0.07 K/mm3 (0.00-0.031); Immature Granulocyte Percent A 0.5 % (0-0.5); Lymphocytes Absolute Auto 2.08 K/mm3 (0.9-3.2); Mean Corpuscular HGB Conc 30.4 g/dl (32-36); Mean Corpuscular Hemoglobin 30.1 pg (26-34); Mean Corpuscular Volume 99.1 fl (80-100); Mean Platelet Volume 8.6 fl (7.4-10.4); Monocytes Absolute Auto 1.8 K/mm3 (0.1-0.6); Monocytes Percent Auto 13.1 % (2.6-8.5); Neutrophils Absolute Auto 9.4 K/mm3 (1.3-6.7); Platelet Count Result 195 k/mm3 (150-375); Red Blood Count 3.29 M/mm3 (4.6-6.20); Red Cell Distribution Width 18.8 % (11.5-14.5); White Blood Count 13.9 K/mm3 (4.5-10.0)
[2024-09-24 06:08] LABS: Alanine Aminotransferase 28 U/L (6-50); Albumin Level 2.9 g/dL (3.5-5.1); Alkaline Phosphatase 76 U/L (38-126); Anion Gap 10 mmol/L (4-12); Aspartate Amino Transferase 68 U/L (17-59); Bilirubin,Total 0.3 mg/dL (0.2-1.3); Blood Urea Nitrogen 25 mg/dL (9-20); Calcium 8.4 mg/dL (8.4-10.2); Carbon Dioxide 21 mmol/L (22-30); Chloride 104 mmol/L (98-107); Estimated CRCL calculation 80 ml/min; Estimated Glomerular Filt Rate 50; Glucose 109 mg/dL (65-110); Magnesium 2.1 mg/dL (1.6-2.3); Potassium 4.2 mmol/L (3.4-5.0); Sodium 135 mmol/L (137-145)
[2024-09-24 06:10] LABS: Lactic Acid Reflex 1.1 mmol/L (0.7-2.0)
--- NOTE | 2024-09-24 06:38 | PCRCNOTE ---
apnea study; 0200 neb tx omitted
[2024-09-24] MEDS: IPRATROPIUM 0.5 MG/ALBUTEROL SULFATE 2.5 MG AMPUL.NEB 3 ML INHALATION ×3 (07:23→19:45)
[2024-09-24] MEDS: FLUTICASONE/SALMETEROL 115-21 MCG INHALER 1 PUFF 2 PUFF INHALATION ×2 (07:24→19:47)
--- NOTE | 2024-09-24 09:19 | P.PNPL_ITS ---
Progress Note: A&P Assessment and Plan (1) Pleural effusion: Code(s): J90 - Pleural effusion, not elsewhere classified Status: Acute Assessment and Plan: This is a 54-year-old man with a history of morbid obesity and no previous episodes of respiratory failure. He presented with fever, hand tremors, an extensive scaling rash on his extremities and trunk, marked leukocytosis, and a chronic pleural effusion on the left side. A review of chest X-rays from the past month shows that the pleural effusion was first noted approximately one month ago and has not increased in size according to the most recent X-ray. The patient has been undergoing treatment for cellulitis with vancomycin and is also on azithromycin. Thoracentesis produced yellow fluid with a normal pH, making empyema unlikely. Further tests to fully characterize the pleural fluid are pending. Over the last 12 hours, the patient has been afebrile with reduced hand tremors, and the white blood cell count is trending downward. Plan: Based on the pleural fluid pH, the pleural effusion is not consistent with empyema. Cytology results are pending. It is recommended to discontinue azithromycin and continue with vancomycin for the extensive cellulitis. Given the patient's morbid obesity, a sleep study on an outpatient basis is likely necessary. Other laboratory tests show no evidence of chronic hypercapnic respiratory failure. We will await the results of the pleural fluid analysis. (2) Bipolar disorder: Qualifiers: Active/Remission status: remission status unspecified Qualified Code(s): F31.9 - Bipolar disorder, unspecified Code(s): F31.9 - Bipolar disorder, unspecified Status: Acute (3) BMI greater than 40: Status: Acute (4) Sepsis: Qualifiers: Sepsis type: sepsis due to unspecified organism Sepsis acute organ dysfunction status: without acute organ dysfunction Qualified Code(s): A41.9 - Sepsis, unspecified organism Code(s): A41.9 - Sepsis, unspecified organism Status: Acute Subjective Date/time seen: 09/24/24 09:19 Interval history: Patient has no new respiratory symptoms. Currently on supplemental oxygen via nasal cannula. Underwent thoracentesis yesterday with removal of only 50 mL of yellow fluid. Currently on vancomycin for extensive cellulitis. MRSA PCR positive. Blood cultures growing Strept A. Review of Systems Review of Systems: All systems reviewed & are unremarkable except as noted in HPI and below (HPI and below) Exam Narrative: GENERAL APPEARANCE: Well developed, well nourished, alert and cooperative, morbidly obese who appear to be in no acute respiratory distress while breathing room air SKIN: Extensive scaling rash covering feet, right upper thigh left forearm and right posterior aspect of thoracic chest. HEENT: Sclerae anicteric and conjunctivae pink and moist. Extraocular movements were intact and pupils were equal, round. Dry oral mucosa NECK: Supple. There was no thyroid enlargement, and no tenderness, or masses were felt. CHEST: Decreased breath sounds left chest posterior no wheezing LUNGS: Auscultation of the lungs revealed normal breath sounds without any other adventitious sounds or rubs. CARDIAC: There was a regular rate and rhythm without any murmurs, gallops, rubs. ABDOMEN: Soft and nontender with normal bowel sounds. LYMPH NODES: No lymphadenopathy was appreciated in the neck. EXTREMITIES: No cyanosis, clubbing or edema. Skin rash as above NEUROLOGIC: Alert and oriented. Normal affect. Objective Data Vital Signs Vital Signs: Vital Signs - 24 hr 09/23/24 09:33 09/23/24 09:40 09/23/24 09:40 Temperature Pulse Rate 100 104 H Respiratory Rate 18 18 Blood Pressure Pulse Oximetry 92 92 Oxygen Delivery Room Air Room Air Oxygen Flow Rate 09/23/24 09:50 09/23/24 12:00 09/23/24 14:00 Temperature 36.2 C L Pulse Rate 100 93 91 Respiratory Rate 18 20 Blood Pressure 136/75 Pulse Oximetry 99 Oxygen Delivery Oxygen Flow Rate 09/23/24 15:39 09/23/24 15:53 09/23/24 16:04 Temperature Pulse Rate 85 89 95 Respiratory Rate 18 18 Blood Pressure Pulse Oximetry Oxygen Delivery Oxygen Flow Rate 09/23/24 20:00 09/23/24 20:00 09/23/24 21:20 Temperature Pulse Rate 85 74 Respiratory Rate 18 Blood Pressure Pulse Oximetry Oxygen Delivery Room Air Oxygen Flow Rate 09/23/24 21:20 09/23/24 21:30 09/23/24 22:00 Temperature 36.6 C Pulse Rate 77 87 Respiratory Rate 18 18 Blood Pressure 90/87 L Pulse Oximetry 87 L 91 Oxygen Delivery Room Air Oxygen Flow Rate 09/24/24 00:00 09/24/24 04:00 09/24/24 06:00 Temperature 36.4 C L Pulse Rate 81 81 81 Respiratory Rate 18 Blood Pressure 123/47 L Pulse Oximetry 99 Oxygen Delivery Oxygen Flow Rate 09/24/24 07:24 09/24/24 07:24 Temperature Pulse Rate 83 Respiratory Rate 20 Blood Pressure Pulse Oximetry 96 Oxygen Delivery Nasal Cannula Oxygen Flow Rate 2 Intake/Output Intake/Output: Intake & Output 09/21/24 09/22/24 09/23/24 09/24/24 23:59 23:59 23:59 23:59 Intake Total 1398 1340 Output Total 500 1100 Balance -478 381 9640 Meds/Results Medications: Active Medications Generic Name Dose Route Start Last Admin Trade Name Freq PRN Reason Stop Dose Admin Acetaminophen 650 mg 09/23/24 00:50 Acetaminophen 325 Mg Tablet PO Q4H PRN Mild Pain (1-3) or Fever Albuterol/Ipratropium 3 ml 09/23/24 02:00 09/24/24 07:23 Ipratropium 0.5 Mg/Albuterol Sulfate 2.5 Mg Ampul.Neb 3 Ml INHALATION 3 ml Q6HRT [facility] Administration Amlodipine Besylate 10 mg 09/23/24 09:00 09/23/24 09:14 Amlodipine Besylate 10 Mg Tablet PO 10 mg DAILY [facility] Administration Aspirin 81 mg 09/23/24 09:00 09/23/24 09:16 Aspirin 81 Mg Enteric Tablet PO Not Given DAILY [facility] Atorvastatin Calcium 40 mg 09/23/24 09:00 09/23/24 09:14 Atorvastatin 40 Mg Tablet PO 40 mg QAM [facility] Administration Azithromycin 500 mg 09/24/24 21:00 Azithromycin 250 Mg Tablet PO 09/26/24 [facility] Br[facility] Tartrate 1 drop 09/23/24 09:00 09/23/24 16:51 Brimonidine Tartrate 0.1% 5 Ml Ophth Drops EACH EYE 1 drop TID [facility]ARYANNE Administration Buspirone HCl 15 mg 09/23/24 09:00 09/23/24 16:50 Buspirone Hcl 5 Mg Tablet PO 15 mg BID [facility] Administration Clobazam 10 mg 09/23/24 17:00 09/23/24 16:49 Clobazam (*Crx) 10 Mg Tablet PO 10 mg DAILY@1700 [facility] Administration Clobazam 10 mg 09/23/24 21:00 09/23/24 20:37 Clobazam (*Crx) 10 Mg Tablet PO 10 mg HS [facility]ARYANNE Administration Diphenhydramine HCl 25 mg 09/23/24 08:17 Diphenhydramine Hcl Cap 25 Mg Capsule PO BID PRN rash Divalproex Sodium 750 mg 09/23/24 09:00 09/23/24 17:[address] 250 Mg Tabec PO 750 mg BID [facility]ANNE Administration Docusate Sodium 100 mg 09/23/24 09:00 09/23/24 16:49 Docusate Sodium 100 Mg Capsule PO 100 mg BID [facility] Administration Duloxetine HCl 60 mg 09/23/24 09:00 09/23/24 09:14 Duloxetine Hcl 60 Mg Capsule.Dr PO 60 mg DAILY [facility] Administration Enoxaparin Sodium 40 mg 09/23/24 09:00 09/23/24 20:37 Enoxaparin 40 Mg/0.4 Ml Syringe SUB-Q 40 mg Q12HR [facility] Administration Ceftriaxone Sodium 2 gm in 100 mls @ 200 mls/hr 09/24/24 09:20 Rocephin 2 Gm/Ns 100 Ml IVPB DAILY [facility] Ibuprofen 600 mg 09/23/24 08:17 09/23/24 17:06 Ibuprofen 600 Mg Tablet PO 600 mg Q6H PRN Administration Pain 4-6 or fever Lamotrigine 25 mg 09/23/24 09:00 09/23/24 16:50 Lamotrigine 25 Mg Tablet PO 25 mg BID [facility] Administration Lamotrigine 100 mg 09/23/24 09:00 09/23/24 16:49 Lamotrigine 100 Mg Tablet PO 100 mg BID [facility] Administration Latanoprost 1 drop 09/23/24 21:00 09/23/24 20:37 Latanoprost 0.005% Op Soln 2.5 Ml Btl EACH EYE 1 drop HS [facility] Administration Lidocaine 1 patch 09/23/24 08:17 Lidocaine 5% Patch TOPICAL DAILY PRN pain Linaclotide 72 mcg 09/23/24 08:30 09/24/24 05:47 Linaclotide 72 Mcg Capsule PO 72 mcg BIDAC [facility] Administration Losartan Potassium 25 mg 09/23/24 09:00 09/23/24 09:15 Losartan Potassium 25 Mg Tablet PO 25 mg QAM [facility] Administration Multi-Ingred Cream/Lotion/Oil/Oint 1 applic 09/23/24 12:00 09/23/24 12:05 Eucerin Cream 120 Gm Jar TOPICAL 1 applic Q24H [facility] Administration Multivitamins/Minerals 1 tab 09/23/24 09:00 09/23/24 09:15 Multivitamins /C Lutein (Centrum Silver) Tablet *Bkc PO 1 tab QAM [facility] Administration Oxcarbazepine 600 mg 09/23/24 09:00 09/23/24 16:51 Oxcarbazepine 300 Mg Tablet PO 600 mg TID [facility] Administration Pantoprazole Sodium 40 mg 09/23/24 09:00 09/23/24 09:14 Pantoprazole 40 Mg Tablet PO 40 mg QAM [facility] Administration Polyethylene Glycol 17 gm 09/23/24 08:22 Polyethylene Glycol 3350 17 Gm Powd.Pack PO DAILY PRN constipation Risperidone 1 mg 09/23/24 09:00 09/23/24 16:50 Risperidone 1 Mg Tablet PO 1 mg BID [facility] Administration Fluticasone/Salmeterol 2 puff 09/23/24 09:00 09/24/24 07:24 Fluticasone/Salmeterol 115-21 Mcg Inhaler 1 Puff INHALATION 2 puff Q12HRT [facility] Administration Sodium Chloride 2 gm 09/23/24 09:00 09/23/24 16:49 Sodium Chloride 1 Gm Tablet PO 2 gm TID [facility] Administration Triamcinolone Acetonide 1 applic 09/23/24 09:00 09/23/24 09:17 Triamcinolone Acet 0.1% Cream 15 Gm Tube TOPICAL 1 applic DAILY [facility]NE Administration Radiology Results: ITS Impressions Chest X-Ray 09/23/24 15:00 IMPRESSION: 1. Small left pleural effusion. 2. Stable airspace opacities in left lower lung zone, likely rounded atelectasis. 3. Cardiomegaly. Thoracentesis Ultrasound 09/23/24 15:11 IMPRESSION: 1. Successful ultrasound-guided thoracentesis yielding 50 mL of yellow fluid. At the end of the procedure, blood tinged the fluid red. Labs Labs: Laboratory Results - last 24 hr 09/23/24 09/23/24 09/23/24 09:13 12:03 14:41 WBC 23.2 H RBC 3.87 L Hgb 11.7 L Hct 37.1 L MCV 95.9 MCH 30.2 MCHC 31.5 L RDW 18.8 H Plt Count 228 MPV 8.6 Immature Gran % (Auto) 0.5 Neut % (Auto) 76.0 H Lymph % (Auto) 13.1 L [place] % (Auto) 10.0 H Eos % (Auto) 0.1 Baso % (Auto) 0.3 Lymph # (Auto) 3.04 [place] # (Auto) 2.3 H Eos # (Auto) 0.0 Baso # (Auto) 0.1 Abs Immat Gran (auto) 0.11 H Absolute Neuts (auto) 17.6 H Absolute Nucleated RBC 0.050 H Nucleated RBC % 0.2 Sodium 137 Potassium 4.7 Chloride 101 Carbon Dioxide 22 Anion Gap 14 H BUN 17 Creatinine 0.97 Estim Creat Clear Calc 119 Estimated GFR > 60 Glucose 84 Lactic Acid Calcium 9.1 Magnesium Total Bilirubin AST ALT Alkaline Phosphatase Total Protein Albumin Pleural pH 7.361 Nasal MRSA (PCR) Detected A* 09/24/24 05:45 WBC 13.9 H RBC 3.29 L Hgb 9.9 L Hct 32.6 L MCV 99.1 MCH 30.1 MCHC 30.4 L RDW 18.8 H Plt Count 195 MPV 8.6 Immature Gran % (Auto) 0.5 Neut % (Auto) 68.0 Lymph % (Auto) 15.0 L [place] % (Auto) 13.1 H Eos % (Auto) 3.0 Baso % (Auto) 0.4 Lymph # (Auto) 2.08 [place] # (Auto) 1.8 H Eos # (Auto) 0.4 H Baso # (Auto) 0.1 Abs Immat Gran (auto) 0.07 H Absolute Neuts (auto) 9.4 H Absolute Nucleated RBC 0.000 Nucleated RBC % 0.0 Sodium 135 L Potassium 4.2 Chloride 104 Carbon Dioxide 21 L Anion Gap 10 BUN 25 H Creatinine 1.48 H Estim Creat Clear Calc 80 Estimated GFR 50 L Glucose 109 Lactic Acid 1.1 Calcium 8.4 Magnesium 2.1 Total Bilirubin 0.3 AST 68 H ALT 28 Alkaline Phosphatase 76 Total Protein 7.0 Albumin 2.9 L Pleural pH Nasal MRSA (PCR)
[2024-09-24] MEDS: PANTOPRAZOLE 40 MG TABLET PO (09:43)
[2024-09-24] MEDS: lamoTRIgine 100 MG TABLET PO ×2 (09:43→17:07)
[2024-09-24] MEDS: OXcarbazepine 300 MG TABLET 600 MG PO ×3 (09:43→17:06)
[2024-09-24] MEDS: DULoxetine HCL 60 MG CAPSULE.DR PO (09:43)
[2024-09-24] MEDS: lamoTRIgine 25 MG TABLET PO ×2 (09:43→17:06)
[2024-09-24] MEDS: SODIUM CHLORIDE 1 GM TABLET 2 GM PO ×3 (09:43→17:06)
[2024-09-24] MEDS: amLODIPine BESYLATE 10 MG TABLET PO (09:43)
[2024-09-24] MEDS: ENOXAPARIN 40 MG/0.4 ML SYRINGE SUB-Q ×2 (09:43→20:44)
[2024-09-24] MEDS: busPIRone HCL 5 MG TABLET 15 MG PO ×2 (09:43→17:06)
[2024-09-24] MEDS: ASPIRIN 81 MG ENTERIC TABLET PO (09:43)
[2024-09-24] MEDS: DIVALPROEX SODIUM DR 250 MG TABEC 750 MG PO ×2 (09:43→17:06)
[2024-09-24] MEDS: LOSARTAN POTASSIUM 25 MG TABLET PO (09:43)
[2024-09-24] MEDS: risperiDONE 1 MG TABLET PO ×2 (09:43→17:07)
[2024-09-24] MEDS: ATORVASTATIN 40 MG TABLET PO (09:43)
[2024-09-24] MEDS: MULTIVITAMINS /C LUTEIN (CENTRUM SILVER) TABLET *BKC 1 TAB PO (09:43)
[2024-09-24] MEDS: DOCUSATE SODIUM 100 MG CAPSULE PO ×2 (09:43→17:06)
[2024-09-24] MEDS: cefTRIAXone 2 GM/NS 100 ML 2 GM/100 ML BAG IVPB (09:44)
[2024-09-24] MEDS: BRIMONIDINE TARTRATE 0.1% 5 ML OPHTH DROPS 1 DROP EACH EYE ×3 (09:44→17:12)
[2024-09-24] MEDS: TRIAMCINOLONE ACET 0.1% CREAM 15 GM TUBE 1 APPLIC TOPICAL (09:44)
[2024-09-24] MEDS: EUCERIN CREAM 120 GM JAR 1 APPLIC TOPICAL (12:35)
--- NOTE | 2024-09-24 13:21 | PM.IMPN ---
Progress Note: A&P Assessment and Plan (1) Sepsis: Qualifiers: Sepsis type: sepsis due to unspecified organism Sepsis acute organ dysfunction status: without acute organ dysfunction Qualified Code(s): A41.9 - Sepsis, unspecified organism Code(s): A41.9 - Sepsis, unspecified organism Status: Acute (2) Pneumonia: Qualifiers: Laterality: left Lung location: lower lobe of lung Pneumonia type: due to unspecified organism Qualified Code(s): J18.9 - Pneumonia, unspecified organism Code(s): J18.9 - Pneumonia, unspecified organism Status: Acute (3) Snoring: Code(s): R06.83 - Snoring Status: Acute (4) BMI greater than 40: Status: Acute (5) Chronic pruritic rash in adult: Code(s): L29.89 - Other pruritus Status: Acute (6) Chronic venous stasis dermatitis: Code(s): I87.2 - Venous insufficiency (chronic) (peripheral) Status: Acute (7) Bipolar disorder: Qualifiers: Active/Remission status: remission status unspecified Qualified Code(s): F31.9 - Bipolar disorder, unspecified Code(s): F31.9 - Bipolar disorder, unspecified Status: Acute Plan Sepsis, improving Cellulitis vs pneumonia/Empyema Patient has multiple widespread skin rashes and erythema Blood culture growing GPC in chains in both bottles Now on Rocephin F/u with thoracentesis and fluid studies monitor GAS bacteremia,likely from Cellulitis Cellulitis vs Pneumonia/Empyema F/u with culture Now on Rocephin Loculated left pleural effusion and chronic left lung opacities r/o infection s/p Thoracentesis, pleural fluid studies pending continue Rocephin and monitor Pulmonology following MRSA colonization MRSA screening positive Bactroban ordered Psychogenic Hyponatremia resolved continue salt tablets Chronic pruritics Continue home triamcinolone cream Chronic venous stasis continue compression stocks monitor Epilepsy continue home Deparkote monitor HTN continue home meds DVT prophylaxis on Sq Lovenox Subjective Date/time seen: 09/24/24 13:21 Interval history: Comfortable at bedside repeat blood cultures pending Review of Systems Review of Systems: Review of systems limited due to the patient's baseline intellectual disability and psychiatric illness. Exam Narrative: Weight 154.5 kg BMI 47.5 Const: Other: Morbidly obese, chronically ill-appearing, appears older than stated age, poor hygiene HENMT: Other: Mucous membranes are moist, no oral pharyngeal erythema, crowded posterior oropharynx, head is normocephalic atraumatic Eyes: Other: Pupils are it difficult to assess because when I tried to evaluate the patient's pupils he closes eyes tightly, no scleral icterus Neck: Other: Large neck circumference, difficult to assess for lymphadenopathy or thyromegaly due to patient positioning and cooperation Resp: Other: Conversational tachypnea, decreased breath sounds throughout anterior nieto Cardio: Other: Tachycardic, regular rhythm, 2+ bilateral radial pedal pulses GI: Other: Obese, nontender, positive bowel sounds, soft : Other: Pure wick catheter in place Skin: Other: Thickened, lichenified rash toe dorsal forearms bilaterally with smaller areas of rash across the trunk and lower extremities, large areas of thick flaking skin skin from the bilateral shins calves and feet bilaterally with underlying chronic erythema and thickening consistent with chronic venous stasis dermatitis Neuro: Other: Alert oriented to name and the fact that he is in the hospital, speech is clear but slow, no obvious facial asymmetry, exam limited due to patient's limited understanding of instructions from baseline intellectual disability, no localizing neurologic deficits noted given exam limits. Extrem: Other: Chronic venous stasis changes/skin changes as noted above, lipedema noted, no open wounds to lower extremities Psych: Other: Pleasantly confused, cooperative, anxious Objective Data Vital Signs Vital Signs: Vital Signs - 24 hr 09/23/24 14:00 09/23/24 15:39 09/23/24 15:53 Temperature 97.1 F L Pulse Rate 91 85 89 Respiratory Rate 20 18 18 Blood Pressure 136/75 Pulse Oximetry 99 Oxygen Delivery Oxygen Flow Rate 09/23/24 16:04 09/23/24 20:00 09/23/24 20:00 Temperature Pulse Rate 95 85 Respiratory Rate Blood Pressure Pulse Oximetry Oxygen Delivery Room Air Oxygen Flow Rate 09/23/24 21:20 09/23/24 21:20 09/23/24 21:30 Temperature Pulse Rate 74 77 Respiratory Rate 18 18 Blood Pressure Pulse Oximetry 87 L Oxygen Delivery Room Air Oxygen Flow Rate 09/23/24 22:00 09/24/24 00:00 09/24/24 04:00 Temperature 97.8 F Pulse Rate 87 81 81 Respiratory Rate 18 Blood Pressure 90/87 L Pulse Oximetry 91 Oxygen Delivery Oxygen Flow Rate 09/24/24 06:00 09/24/24 07:24 09/24/24 07:24 Temperature 97.5 F L Pulse Rate 81 83 Respiratory Rate 18 20 Blood Pressure 123/47 L Pulse Oximetry 99 96 Oxygen Delivery Nasal Cannula Oxygen Flow Rate 2 09/24/24 07:32 09/24/24 08:00 09/24/24 09:41 Temperature Pulse Rate 80 86 Respiratory Rate 20 Blood Pressure 108/49 L Pulse Oximetry 96 Oxygen Delivery Nasal Cannula Oxygen Flow Rate 2 09/24/24 13:15 Temperature Pulse Rate 82 Respiratory Rate 20 Blood Pressure Pulse Oximetry Oxygen Delivery Oxygen Flow Rate Intake/Output Intake/Output: Intake & Output 09/21/24 09/22/24 09/23/24 09/24/24 23:59 23:59 23:59 23:59 Intake Total 1398 2136 Output Total 500 1100 Balance -169 098 5269 Meds/Results Medications: Active Medications Generic Name Dose Route Start Last Admin Trade Name Freq PRN Reason Stop Dose Admin Acetaminophen 650 mg 09/23/24 00:50 Acetaminophen 325 Mg Tablet PO Q4H PRN Mild Pain (1-3) or Fever Albuterol/Ipratropium 3 ml 09/23/24 02:00 09/24/24 13:15 Ipratropium 0.5 Mg/Albuterol Sulfate 2.5 Mg Ampul.Neb 3 Ml INHALATION 3 ml Q6HRT MARYANNE Administration Amlodipine Besylate 10 mg 09/23/24 09:00 09/24/24 09:43 Amlodipine Besylate 10 Mg Tablet PO 10 mg DAILY [facility] Administration Aspirin 81 mg 09/23/24 09:00 09/24/24 09:43 Aspirin 81 Mg Enteric Tablet PO 81 mg DAILY [facility]ARYANNE Administration Atorvastatin Calcium 40 mg 09/23/24 09:00 09/24/24 09:43 Atorvastatin 40 Mg Tablet PO 40 mg QAM [facility] Administration Azithromycin 500 mg 09/24/24 21:00 Azithromycin 250 Mg Tablet PO 09/26/24 21:01 QHS [facility] Brimonidine Tartrate 1 drop 09/23/24 09:00 09/24/24 12:32 Brimonidine Tartrate 0.1% 5 Ml Ophth Drops EACH EYE 1 drop TID [facility] Administration Buspirone HCl 15 mg 09/23/24 09:00 09/24/24 09:43 Buspirone Hcl 5 Mg Tablet PO 15 mg BID [facility]NE Administration Clobazam 10 mg 09/23/24 17:00 09/23/24 16:49 Clobazam (*Crx) 10 Mg Tablet PO 10 mg DAILY@1700 [facility] Administration Clobazam 10 mg 09/23/24 21:00 09/23/24 20:37 Clobazam (*Crx) 10 Mg Tablet PO 10 mg HS [facility]NE Administration Diphenhydramine HCl 25 mg 09/23/24 08:17 Diphenhydramine Hcl Cap 25 Mg Capsule PO BID PRN rash Divalproex Sodium 750 mg 09/23/24 09:00 09/24/24 09:[address] 250 Mg Tabec PO 750 mg BID [facility]NE Administration Docusate Sodium 100 mg 09/23/24 09:00 09/24/24 09:43 Docusate Sodium 100 Mg Capsule PO 100 mg BID [facility]NE Administration Duloxetine HCl 60 mg 09/23/24 09:00 09/24/24 09:43 Duloxetine Hcl 60 Mg Capsule.Dr PO 60 mg DAILY [facility] Administration Enoxaparin Sodium 40 mg 09/23/24 09:00 09/24/24 09:43 Enoxaparin 40 Mg/0.4 Ml Syringe SUB-Q 40 mg Q12HR [facility]NE Administration Ceftriaxone Sodium 2 gm in 100 mls @ 200 mls/hr 09/24/24 09:20 09/24/24 09:44 Rocephin 2 Gm/Ns 100 Ml IVPB 200 mls/hr DAILY [facility] Administration Ibuprofen 600 mg 09/23/24 08:17 09/23/24 17:06 Ibuprofen 600 Mg Tablet PO 600 mg Q6H PRN Administration Pain 4-6 or fever Lamotrigine 25 mg 09/23/24 09:00 09/24/24 09:43 Lamotrigine 25 Mg Tablet PO 25 mg BID [facility] Administration Lamotrigine 100 mg 09/23/24 09:00 09/24/24 09:43 Lamotrigine 100 Mg Tablet PO 100 mg BID [facility] Administration Latanoprost 1 drop 09/23/24 21:00 09/23/24 20:37 Latanoprost 0.005% Op Soln 2.5 Ml Btl EACH EYE 1 drop HS [facility]NE Administration Lidocaine 1 patch 09/23/24 08:17 Lidocaine 5% Patch TOPICAL DAILY PRN pain Linaclotide 72 mcg 09/23/24 08:30 09/24/24 05:47 Linaclotide 72 Mcg Capsule PO 72 mcg BIDAC [facility] Administration Losartan Potassium 25 mg 09/23/24 09:00 09/24/24 09:43 Losartan Potassium 25 Mg Tablet PO 25 mg QAM [facility]NE Administration Multi-Ingred Cream/Lotion/Oil/Oint 1 applic 09/23/24 12:00 09/24/24 12:35 Eucerin Cream 120 Gm Jar TOPICAL 1 applic Q24H [facility] Administration Multivitamins/Minerals 1 tab 09/23/24 09:00 09/24/24 09:43 Multivitamins /C Lutein (Centrum Silver) Tablet *Bkc PO 1 tab QAM [facility] Administration Oxcarbazepine 600 mg 09/23/24 09:00 09/24/24 12:31 Oxcarbazepine 300 Mg Tablet PO 600 mg TID MARYANNE Administration Pantoprazole Sodium 40 mg 09/23/24 09:00 09/24/24 09:43 Pantoprazole 40 Mg Tablet PO 40 mg QAM [facility]NE Administration Polyethylene Glycol 17 gm 09/23/24 08:22 Polyethylene Glycol 3350 17 Gm Powd.Pack PO DAILY PRN constipation Risperidone 1 mg 09/23/24 09:00 09/24/24 09:43 Risperidone 1 Mg Tablet PO 1 mg BID MARY[facility]NE Administration Fluticasone/Salmeterol 2 puff 09/23/24 09:00 09/24/24 07:24 Fluticasone/Salmeterol 115-21 Mcg Inhaler 1 Puff INHALATION 2 puff Q12HRT MARY[facility]NE Administration Sodium Chloride 2 gm 09/23/24 09:00 09/24/24 12:31 Sodium Chloride 1 Gm Tablet PO 2 gm TID MARYANNE Administration Triamcinolone Acetonide 1 applic 09/23/24 09:00 09/24/24 09:44 Triamcinolone Acet 0.1% Cream 15 Gm Tube TOPICAL 1 applic DAILY MARYANNE Administration Radiology Results: ITS Impressions Chest X-Ray 09/23/24 15:00 IMPRESSION: 1. Small left pleural effusion. 2. Stable airspace opacities in left lower lung zone, likely rounded atelectasis. 3. Cardiomegaly. Thoracentesis Ultrasound 09/23/24 15:11 IMPRESSION: 1. Successful ultrasound-guided thoracentesis yielding 50 mL of yellow fluid. At the end of the procedure, blood tinged the fluid red. Labs Labs: Laboratory Results - last 24 hr 09/23/24 09/23/24 09/24/24 12:03 14:41 05:45 WBC 13.9 H RBC 3.29 L Hgb 9.9 L Hct 32.6 L MCV 99.1 MCH 30.1 MCHC 30.4 L RDW 18.8 H Plt Count 195 MPV 8.6 Immature Gran % (Auto) 0.5 Neut % (Auto) 68.0 Lymph % (Auto) 15.0 L [place] % (Auto) 13.1 H Eos % (Auto) 3.0 Baso % (Auto) 0.4 Lymph # (Auto) 2.08 [place] # (Auto) 1.8 H Eos # (Auto) 0.4 H Baso # (Auto) 0.1 Abs Immat Gran (auto) 0.07 H Absolute Neuts (auto) 9.4 H Absolute Nucleated RBC 0.000 Nucleated RBC % 0.0 Sodium 135 L Potassium 4.2 Chloride 104 Carbon Dioxide 21 L Anion Gap 10 BUN 25 H Creatinine 1.48 H Estim Creat Clear Calc 80 Estimated GFR 50 L Glucose 109 Lactic Acid 1.1 Calcium 8.4 Magnesium 2.1 Total Bilirubin 0.3 AST 68 H ALT 28 Alkaline Phosphatase 76 Total Protein 7.0 Albumin 2.9 L Pleural pH 7.361 Nasal MRSA (PCR) Detected A* Quality VTE Prophylaxis VTE prophylaxis: pharmacologic ordered (Lovenox 40 mg q.12 hours due to the BMI greater than 40)
[2024-09-24] MEDS: cloBAZam (*CRX) 10 MG TABLET PO ×2 (17:06→20:43)
[2024-09-24] MEDS: AZITHROMYCIN 250 MG TABLET 500 MG PO (20:43)
[2024-09-24] MEDS: LATANOPROST 0.005% OP SOLN 2.5 ML BTL 1 DROP EACH EYE (20:44)
[2024-09-24] MEDS: MUPIROCIN 2% OINT 22 GM TUBE 1 APPLIC EACH NARE (20:44)
[2024-09-25] VITALS (19 sets, daily range): BP systolic 119–128; BP diastolic 45–74; PULSE 80–92; RESP 16–20; TEMP 36.4–36.6; O2SAT 93–98
[2024-09-25] MEDS: IPRATROPIUM 0.5 MG/ALBUTEROL SULFATE 2.5 MG AMPUL.NEB 3 ML INHALATION ×4 (01:48→20:23)
[2024-09-25 05:40] LABS: Basophils Percent Auto 0.2 % (0.2-1.2); Eosinophils Absolute Auto 0.9 K/mm3 (0-0.3); Eosinophils Percent Auto 9.4 % (0-4.4); Hematocrit 30.4 % (42.0-52.0); Hemoglobin 9.5 g/dL (14.0-18.0); Immature Granulocyte Absolute 0.05 K/mm3 (0.00-0.031); Immature Granulocyte Percent A 0.5 % (0-0.5); Lymphocytes Absolute Auto 1.44 K/mm3 (0.9-3.2); Lymphocytes Percent Auto 14.8 % (18.3-44.2); Mean Corpuscular HGB Conc 31.3 g/dl (32-36); Mean Corpuscular Hemoglobin 30.3 pg (26-34); Mean Corpuscular Volume 96.8 fl (80-100); Mean Platelet Volume 8.9 fl (7.4-10.4); Monocytes Absolute Auto 1.1 K/mm3 (0.1-0.6); Monocytes Percent Auto 11.4 % (2.6-8.5); Neutrophils Absolute Auto 6.2 K/mm3 (1.3-6.7); Neutrophils Percent Auto 63.7 % (45.5-73.1); Platelet Count Result 200 k/mm3 (150-375); Red Blood Count 3.14 M/mm3 (4.6-6.20); Red Cell Distribution Width 18.1 % (11.5-14.5); White Blood Count 9.7 K/mm3 (4.5-10.0)
[2024-09-25 05:45] LABS: Alanine Aminotransferase 29 U/L (6-50); Albumin Level 2.9 g/dL (3.5-5.1); Alkaline Phosphatase 96 U/L (38-126); Anion Gap 8 mmol/L (4-12); Aspartate Amino Transferase 66 U/L (17-59); Bilirubin,Total 0.1 mg/dL (0.2-1.3); Blood Urea Nitrogen 21 mg/dL (9-20); Calcium 8.4 mg/dL (8.4-10.2); Carbon Dioxide 24 mmol/L (22-30); Chloride 104 mmol/L (98-107); Estimated CRCL calculation 105 ml/min; Estimated Glomerular Filt Rate > 60; Glucose 113 mg/dL (65-110); Magnesium 2.1 mg/dL (1.6-2.3); Sodium 136 mmol/L (137-145)
[2024-09-25] MEDS: LINACLOTIDE 72 MCG CAPSULE PO ×2 (06:06→17:05)
[2024-09-25] MEDS: lamoTRIgine 25 MG TABLET PO ×2 (09:07→17:05)
[2024-09-25] MEDS: DIVALPROEX SODIUM DR 250 MG TABEC 750 MG PO ×2 (09:07→17:05)
[2024-09-25] MEDS: busPIRone HCL 5 MG TABLET 15 MG PO ×2 (09:07→17:04)
[2024-09-25] MEDS: DULoxetine HCL 60 MG CAPSULE.DR PO (09:07)
[2024-09-25] MEDS: ASPIRIN 81 MG ENTERIC TABLET PO (09:08)
[2024-09-25] MEDS: LOSARTAN POTASSIUM 25 MG TABLET PO (09:08)
[2024-09-25] MEDS: ATORVASTATIN 40 MG TABLET PO (09:08)
[2024-09-25] MEDS: MULTIVITAMINS /C LUTEIN (CENTRUM SILVER) TABLET *BKC 1 TAB PO (09:08)
[2024-09-25] MEDS: PANTOPRAZOLE 40 MG TABLET PO (09:08)
[2024-09-25] MEDS: SODIUM CHLORIDE 1 GM TABLET 2 GM PO ×3 (09:08→17:05)
[2024-09-25] MEDS: cefTRIAXone 2 GM/NS 100 ML 2 GM/100 ML BAG IVPB (09:08)
[2024-09-25] MEDS: amLODIPine BESYLATE 10 MG TABLET PO (09:08)
[2024-09-25] MEDS: lamoTRIgine 100 MG TABLET PO ×2 (09:08→17:05)
[2024-09-25] MEDS: OXcarbazepine 300 MG TABLET 600 MG PO ×3 (09:08→17:05)
[2024-09-25] MEDS: risperiDONE 1 MG TABLET PO ×2 (09:08→17:05)
[2024-09-25] MEDS: DOCUSATE SODIUM 100 MG CAPSULE PO ×2 (09:08→17:05)
[2024-09-25] MEDS: ENOXAPARIN 40 MG/0.4 ML SYRINGE SUB-Q ×2 (09:08→20:27)
[2024-09-25] MEDS: BRIMONIDINE TARTRATE 0.1% 5 ML OPHTH DROPS 1 DROP EACH EYE ×3 (09:09→17:11)
[2024-09-25] MEDS: TRIAMCINOLONE ACET 0.1% CREAM 15 GM TUBE 1 APPLIC TOPICAL (09:09)
[2024-09-25] MEDS: MUPIROCIN 2% OINT 22 GM TUBE 1 APPLIC EACH NARE ×2 (09:09→20:29)
[2024-09-25] MEDS: FLUTICASONE/SALMETEROL 115-21 MCG INHALER 1 PUFF 2 PUFF INHALATION ×2 (09:38→20:24)
--- NOTE | 2024-09-25 09:54 | P.PNPL_ITS ---
Progress Note: A&P Assessment and Plan (1) Pleural effusion: Code(s): J90 - Pleural effusion, not elsewhere classified Status: Acute Assessment and Plan: This is a 54-year-old man with a history of morbid obesity and no previous episodes of respiratory failure. He presented with fever, hand tremors, an extensive scaling rash on his extremities and trunk, marked leukocytosis, and a chronic pleural effusion on the left side. A review of chest X-rays from the past month shows that the pleural effusion was first noted approximately one month ago and has not increased in size according to the most recent X-ray. The patient has been undergoing treatment for cellulitis with vancomycin. Thoracentesis produced yellow fluid with a normal pH, making empyema unlikely. Further tests to fully characterize the pleural fluid are pending. Over the last 12 hours, the patient has been afebrile with reduced hand tremors, and the white blood cell count is trending downward. Clinical Update and Plan Respiratory Status: The patient's respiratory condition has remained stable over the past 48 hours, despite receiving supplemental oxygen via nasal cannula. There is no indication of an acute respiratory issue at present. Dermatological Status: The skin rash is showing signs of improvement with vancomycin treatment. Pleural Effusion: The analysis of pleural fluid is still pending. The left pleural effusion is chronic, small in size, and the pH level is not indicative of empyema. Infection and Treatment: Most of the patient's initial symptoms, including fever, hand shaking, and leukocytosis, were associated with cellulitis caused by Staphylococcus aureus. Vancomycin appears to be an effective treatment. Sleep Disordered Breathing: The patient shows evidence of sleep-disordered breathing and will require further evaluation with a sleep study on an outpatient basis. The total bicarbonate level suggests there is no evidence of chronic hypercapnic respiratory failure that requires immediate intervention. Plan: Continue vancomycin treatment for cellulitis under the hospitalist team's care. Before discharge, obtain a repeat chest X-ray, preferably two views, to evaluate the size of the left pleural effusion. Schedule follow-up at the pulmonary clinic for assessment of possible sleep- disordered breathing. Conduct a home oxygen evaluation prior to discharge to the skilled nursing. I will conclude my involvement but am available for any questions. Please feel free to contact me if needed. (2) Bipolar disorder: Qualifiers: Active/Remission status: remission status unspecified Qualified Code(s): F31.9 - Bipolar disorder, unspecified Code(s): F31.9 - Bipolar disorder, unspecified Status: Acute (3) BMI greater than 40: Status: Acute (4) Sepsis: Qualifiers: Sepsis type: sepsis due to unspecified organism Sepsis acute organ dysfunction status: without acute organ dysfunction Qualified Code(s): A41.9 - Sepsis, unspecified organism Code(s): A41.9 - Sepsis, unspecified organism Status: Acute Subjective Date/time seen: 09/25/24 09:54 Interval history: Patient has no new respiratory symptoms. Currently on supplemental oxygen via nasal cannula. Receiving treatment with vancomycin for extensive cellulitis. Underwent left thoracentesis. Review of Systems Review of Systems: Review of systems limited due to the patient's baseline intellectual disability and psychiatric illness. Exam Narrative: GENERAL APPEARANCE: Well developed, well nourished, alert and cooperative, morbidly obese who appear to be in no acute respiratory distress while breathing room air SKIN: Extensive scaling rash covering feet, right upper thigh left forearm and right posterior aspect of thoracic chest. HEENT: Sclerae anicteric and conjunctivae pink and moist. Extraocular movements were intact and pupils were equal, round. Dry oral mucosa NECK: Supple. There was no thyroid enlargement, and no tenderness, or masses were felt. CHEST: Decreased breath sounds left chest posterior no wheezing LUNGS: Auscultation of the lungs revealed normal breath sounds without any other adventitious sounds or rubs. CARDIAC: There was a regular rate and rhythm without any murmurs, gallops, rubs. ABDOMEN: Soft and nontender with normal bowel sounds. LYMPH NODES: No lymphadenopathy was appreciated in the neck. EXTREMITIES: No cyanosis, clubbing or edema. Skin rash as above NEUROLOGIC: Alert and oriented. Normal affect. Objective Data Vital Signs Vital Signs: Vital Signs - 24 hr 09/24/24 12:00 09/24/24 13:15 09/24/24 13:22 Temperature Pulse Rate 82 82 78 Respiratory Rate 20 20 Blood Pressure Pulse Oximetry Oxygen Delivery Oxygen Flow Rate Fraction of Inspired Oxygen 09/24/24 14:00 09/24/24 16:00 09/24/24 19:45 Temperature 36.4 C Pulse Rate 87 83 Respiratory Rate 20 Blood Pressure 134/69 Pulse Oximetry 97 94 Oxygen Delivery Nasal Cannula Oxygen Flow Rate 1 Fraction of Inspired Oxygen 24 09/24/24 19:45 09/24/24 19:57 09/24/24 20:00 Temperature Pulse Rate 82 86 92 Respiratory Rate 20 20 Blood Pressure Pulse Oximetry Oxygen Delivery Oxygen Flow Rate Fraction of Inspired Oxygen 09/24/24 20:00 09/24/24 22:00 09/25/24 00:00 Temperature 36.4 C L Pulse Rate 89 91 Respiratory Rate 18 Blood Pressure 135/35 L Pulse Oximetry 94 94 Oxygen Delivery Nasal Cannula Oxygen Flow Rate 1 Fraction of Inspired Oxygen 09/25/24 01:48 09/25/24 01:55 09/25/24 04:00 Temperature Pulse Rate 92 90 89 Respiratory Rate 20 20 Blood Pressure Pulse Oximetry Oxygen Delivery Oxygen Flow Rate Fraction of Inspired Oxygen 09/25/24 06:00 09/25/24 08:00 09/25/24 09:40 Temperature 36.6 C Pulse Rate 88 85 85 Respiratory Rate 18 16 20 Blood Pressure 119/45 L 125/74 Pulse Oximetry 93 96 Oxygen Delivery Oxygen Flow Rate Fraction of Inspired Oxygen 09/25/24 09:41 09/25/24 09:48 Temperature Pulse Rate 87 Respiratory Rate 20 Blood Pressure Pulse Oximetry 94 Oxygen Delivery Nasal Cannula Oxygen Flow Rate 1 Fraction of Inspired Oxygen Intake/Output Intake/Output: Intake & Output 09/22/24 09/23/24 09/24/24 09/25/24 23:59 23:59 23:59 23:59 Intake Total 1398 3142 178 Output Total 500 1100 1000 2300 Balance -[phone] -2122 Meds/Results Medications: Active Medications Generic Name Dose Route Start Last Admin Trade Name Freq PRN Reason Stop Dose Admin Acetaminophen 650 mg 09/23/24 00:50 Acetaminophen 325 Mg Tablet PO Q4H PRN Mild Pain (1-3) or Fever Albuterol/Ipratropium 3 ml 09/23/24 02:00 09/25/24 09:38 Ipratropium 0.5 Mg/Albuterol Sulfate 2.5 Mg Ampul.Neb 3 Ml INHALATION 3 ml Q6HRT MARYANNE Administration Amlodipine Besylate 10 mg 09/23/24 09:00 09/25/24 09:08 Amlodipine Besylate 10 Mg Tablet PO 10 mg DAILY MARYANNE Administration Aspirin 81 mg 09/23/24 09:00 09/25/24 09:08 Aspirin 81 Mg Enteric Tablet PO 81 mg DAILY MARYANNE Administration Atorvastatin Calcium 40 mg 09/23/24 09:00 09/25/24 09:08 Atorvastatin 40 Mg Tablet PO 40 mg QAM MARYANNE Administration Azithromycin 500 mg 09/24/24 21:00 09/24/24 20:43 Azithromycin 250 Mg Tablet PO 09/26/24 21:01 500 mg QHS MARYANNE Administration Brimonidine Tartrate 1 drop 09/23/24 09:00 09/25/24 09:09 Brimonidine Tartrate 0.1% 5 Ml Ophth Drops EACH EYE 1 drop TID MARYANNE Administration Buspirone HCl 15 mg 09/23/24 09:00 09/25/24 09:07 Buspirone Hcl 5 Mg Tablet PO 15 mg BID MARYANNE Administration Clobazam 10 mg 09/23/24 17:00 09/24/24 17:06 Clobazam (*Crx) 10 Mg Tablet PO 10 mg DAILY@1700 MARYANNE Administration Clobazam 10 mg 09/23/24 21:00 09/24/24 20:43 Clobazam (*Crx) 10 Mg Tablet PO 10 mg HS MARYANNE Administration Diphenhydramine HCl 25 mg 09/23/24 08:17 Diphenhydramine Hcl Cap 25 Mg Capsule PO BID PRN rash Divalproex Sodium 750 mg 09/23/24 09:00 09/25/24 09:[address] 250 Mg Tabec PO 750 mg BID MARYANNE Administration Docusate Sodium 100 mg 09/23/24 09:00 09/25/24 09:08 Docusate Sodium 100 Mg Capsule PO 100 mg BID MARYANNE Administration Duloxetine HCl 60 mg 09/23/24 09:00 09/25/24 09:07 Duloxetine Hcl 60 Mg Capsule.Dr PO 60 mg DAILY MARYANNE Administration Enoxaparin Sodium 40 mg 09/23/24 09:00 09/25/24 09:08 Enoxaparin 40 Mg/0.4 Ml Syringe SUB-Q 40 mg Q12HR MARYANNE Administration Ceftriaxone Sodium 2 gm in 100 mls @ 200 mls/hr 09/24/24 09:20 09/25/24 09:08 Rocephin 2 Gm/Ns 100 Ml IVPB 200 mls/hr DAILY MARYANNE Administration Ibuprofen 600 mg 09/23/24 08:17 09/23/24 17:06 Ibuprofen 600 Mg Tablet PO 600 mg Q6H PRN Administration Pain 4-6 or fever Lamotrigine 25 mg 09/23/24 09:00 09/25/24 09:07 Lamotrigine 25 Mg Tablet PO 25 mg BID MARYANNE Administration Lamotrigine 100 mg 09/23/24 09:00 09/25/24 09:08 Lamotrigine 100 Mg Tablet PO 100 mg BID MARYANNE Administration Latanoprost 1 drop 09/23/24 21:00 09/24/24 20:44 Latanoprost 0.005% Op Soln 2.5 Ml Btl EACH EYE 1 drop HS MARYANNE Administration Lidocaine 1 patch 09/23/24 08:17 Lidocaine 5% Patch TOPICAL DAILY PRN pain Linaclotide 72 mcg 09/23/24 08:30 09/25/24 06:06 Linaclotide 72 Mcg Capsule PO 72 mcg BIDAC MARYANNE Administration Losartan Potassium 25 mg 09/23/24 09:00 09/25/24 09:08 Losartan Potassium 25 Mg Tablet PO 25 mg QAM MARYANNE Administration Multi-Ingred Cream/Lotion/Oil/Oint 1 applic 09/23/24 12:00 09/24/24 12:35 Eucerin Cream 120 Gm Jar TOPICAL 1 applic Q24H MARYANNE Administration Multivitamins/Minerals 1 tab 09/23/24 09:00 09/25/24 09:08 Multivitamins /C Lutein (Centrum Silver) Tablet *Bkc PO 1 tab QAM MARYANNE Administration Mupirocin 1 applic 09/24/24 21:00 09/25/24 09:09 Mupirocin 2% Oint 22 Gm Tube EACH NARE 1 applic Q12HR MARYANNE Administration Oxcarbazepine 600 mg 09/23/24 09:00 09/25/24 09:08 Oxcarbazepine 300 Mg Tablet PO 600 mg TID MARYANNE Administration Pantoprazole Sodium 40 mg 09/23/24 09:00 09/25/24 09:08 Pantoprazole 40 Mg Tablet PO 40 mg QAM MARYANNE Administration Polyethylene Glycol 17 gm 09/23/24 08:22 Polyethylene Glycol 3350 17 Gm Powd.Pack PO DAILY PRN constipation Risperidone 1 mg 09/23/24 09:00 09/25/24 09:08 Risperidone 1 Mg Tablet PO 1 mg BID MARYANNE Administration Fluticasone/Salmeterol 2 puff 09/23/24 09:00 09/25/24 09:38 Fluticasone/Salmeterol 115-21 Mcg Inhaler 1 Puff INHALATION 2 puff Q12HRT MARYANNE Administration Sodium Chloride 2 gm 09/23/24 09:00 09/25/24 09:08 Sodium Chloride 1 Gm Tablet PO 2 gm TID MARYANNE Administration Triamcinolone Acetonide 1 applic 09/23/24 09:00 09/25/24 09:09 Triamcinolone Acet 0.1% Cream 15 Gm Tube TOPICAL 1 applic DAILY MARYANNE Administration Radiology Results: ITS Impressions Chest X-Ray 09/23/24 15:00 IMPRESSION: 1. Small left pleural effusion. 2. Stable airspace opacities in left lower lung zone, likely rounded atelectasis. 3. Cardiomegaly. Thoracentesis Ultrasound 09/23/24 15:11 IMPRESSION: 1. Successful ultrasound-guided thoracentesis yielding 50 mL of yellow fluid. At the end of the procedure, blood tinged the fluid red. Labs Labs: Laboratory Results - last 24 hr 09/25/24 04:49 WBC 9.7 RBC 3.14 L Hgb 9.5 L Hct 30.4 L MCV 96.8 MCH 30.3 MCHC 31.3 L RDW 18.1 H Plt Count 200 MPV 8.9 Immature Gran % (Auto) 0.5 Neut % (Auto) 63.7 Lymph % (Auto) 14.8 L [place] % (Auto) 11.4 H Eos % (Auto) 9.4 H Baso % (Auto) 0.2 Lymph # (Auto) 1.44 [place] # (Auto) 1.1 H Eos # (Auto) 0.9 H Baso # (Auto) 0.0 Abs Immat Gran (auto) 0.05 H Absolute Neuts (auto) 6.2 Absolute Nucleated RBC 0.000 Nucleated RBC % 0.0 Sodium 136 L Potassium 4.0 Chloride 104 Carbon Dioxide 24 Anion Gap 8 BUN 21 H Creatinine 1.11 Estim Creat Clear Calc 105 Estimated GFR > 60 Glucose 113 H Calcium 8.4 Magnesium 2.1 Total Bilirubin 0.1 L AST 66 H ALT 29 Alkaline Phosphatase 96 Total Protein 6.0 L Albumin 2.9 L
--- NOTE | 2024-09-25 10:56 | PM.IMPN ---
Progress Note: A&P Assessment and Plan (1) Sepsis: Qualifiers: Sepsis type: sepsis due to unspecified organism Sepsis acute organ dysfunction status: without acute organ dysfunction Qualified Code(s): A41.9 - Sepsis, unspecified organism Code(s): A41.9 - Sepsis, unspecified organism Status: Acute (2) Pneumonia: Qualifiers: Laterality: left Lung location: lower lobe of lung Pneumonia type: due to unspecified organism Qualified Code(s): J18.9 - Pneumonia, unspecified organism Code(s): J18.9 - Pneumonia, unspecified organism Status: Acute (3) Snoring: Code(s): R06.83 - Snoring Status: Acute (4) BMI greater than 40: Status: Acute (5) Chronic pruritic rash in adult: Code(s): L29.89 - Other pruritus Status: Acute (6) Chronic venous stasis dermatitis: Code(s): I87.2 - Venous insufficiency (chronic) (peripheral) Status: Acute (7) Bipolar disorder: Qualifiers: Active/Remission status: remission status unspecified Qualified Code(s): F31.9 - Bipolar disorder, unspecified Code(s): F31.9 - Bipolar disorder, unspecified Status: Acute Plan Sepsis, improving Cellulitis vs pneumonia/Empyema Patient has multiple widespread skin rashes and erythema Blood culture growing GPC in chains in both bottles Now on Rocephin Pleural fluid culture pending monitor GAS bacteremia,likely from Cellulitis Cellulitis vs Pneumonia/Empyema F/u with culture Continue Rocephin Loculated left pleural effusion and chronic left lung opacities r/o infection s/p Thoracentesis, pleural fluid studies pending continue Rocephin and monitor Pulmonology following MRSA colonization MRSA screening positive Bactroban ordered Psychogenic Hyponatremia resolved continue salt tablets Chronic pruritics Continue home triamcinolone cream Chronic venous stasis continue compression stocks monitor Epilepsy continue home Deparkote monitor HTN continue home meds DVT prophylaxis on Sq Lovenox Subjective Date/time seen: 09/25/24 10:56 Interval history: Patient comfortable at bedside Awaiting Pleural fluid culture Review of Systems Review of Systems: Review of systems limited due to the patient's baseline intellectual disability and psychiatric illness. Exam Narrative: Weight 154.5 kg BMI 47.5 Const: Other: Morbidly obese, chronically ill-appearing, appears older than stated age, poor hygiene HENMT: Other: Mucous membranes are moist, no oral pharyngeal erythema, crowded posterior oropharynx, head is normocephalic atraumatic Eyes: Other: Pupils are it difficult to assess because when I tried to evaluate the patient's pupils he closes eyes tightly, no scleral icterus Neck: Other: Large neck circumference, difficult to assess for lymphadenopathy or thyromegaly due to patient positioning and cooperation Resp: Other: Conversational tachypnea, decreased breath sounds throughout anterior nieto Cardio: Other: Tachycardic, regular rhythm, 2+ bilateral radial pedal pulses GI: Other: Obese, nontender, positive bowel sounds, soft : Other: Pure wick catheter in place Skin: Other: Thickened, lichenified rash toe dorsal forearms bilaterally with smaller areas of rash across the trunk and lower extremities, large areas of thick flaking skin skin from the bilateral shins calves and feet bilaterally with underlying chronic erythema and thickening consistent with chronic venous stasis dermatitis Neuro: Other: Alert oriented to name and the fact that he is in the hospital, speech is clear but slow, no obvious facial asymmetry, exam limited due to patient's limited understanding of instructions from baseline intellectual disability, no localizing neurologic deficits noted given exam limits. Extrem: Other: Chronic venous stasis changes/skin changes as noted above, lipedema noted, no open wounds to lower extremities Psych: Other: Pleasantly confused, cooperative, anxious Objective Data Vital Signs Vital Signs: Vital Signs - 24 hr 09/24/24 12:00 09/24/24 13:15 09/24/24 13:22 Temperature Pulse Rate 82 82 78 Respiratory Rate 20 20 Blood Pressure Pulse Oximetry Oxygen Delivery Oxygen Flow Rate Fraction of Inspired Oxygen 09/24/24 14:00 09/24/24 16:00 09/24/24 19:45 Temperature 97.6 F Pulse Rate 87 83 Respiratory Rate 20 Blood Pressure 134/69 Pulse Oximetry 97 94 Oxygen Delivery Nasal Cannula Oxygen Flow Rate 1 Fraction of Inspired Oxygen 24 09/24/24 19:45 09/24/24 19:57 09/24/24 20:00 Temperature Pulse Rate 82 86 92 Respiratory Rate 20 20 Blood Pressure Pulse Oximetry Oxygen Delivery Oxygen Flow Rate Fraction of Inspired Oxygen 09/24/24 20:00 09/24/24 22:00 09/25/24 00:00 Temperature 97.5 F L Pulse Rate 89 91 Respiratory Rate 18 Blood Pressure 135/35 L Pulse Oximetry 94 94 Oxygen Delivery Nasal Cannula Oxygen Flow Rate 1 Fraction of Inspired Oxygen 09/25/24 01:48 09/25/24 01:55 09/25/24 04:00 Temperature Pulse Rate 92 90 89 Respiratory Rate 20 20 Blood Pressure Pulse Oximetry Oxygen Delivery Oxygen Flow Rate Fraction of Inspired Oxygen 09/25/24 06:00 09/25/24 08:00 09/25/24 09:40 Temperature 97.9 F Pulse Rate 88 85 85 Respiratory Rate 18 16 20 Blood Pressure 119/45 L 125/74 Pulse Oximetry 93 96 Oxygen Delivery Oxygen Flow Rate Fraction of Inspired Oxygen 09/25/24 09:41 09/25/24 09:48 Temperature Pulse Rate 87 Respiratory Rate 20 Blood Pressure Pulse Oximetry 94 Oxygen Delivery Nasal Cannula Oxygen Flow Rate 1 Fraction of Inspired Oxygen Intake/Output Intake/Output: Intake & Output 09/22/24 09/23/24 09/24/24 09/25/24 23:59 23:59 23:59 23:59 Intake Total 1398 3142 178 Output Total 500 1100 1000 2300 Balance -674 599 4433 -2122 Meds/Results Medications: Active Medications Generic Name Dose Route Start Last Admin Trade Name Freq PRN Reason Stop Dose Admin Acetaminophen 650 mg 09/23/24 00:50 Acetaminophen 325 Mg Tablet PO Q4H PRN Mild Pain (1-3) or Fever Albuterol/Ipratropium 3 ml 09/23/24 02:00 09/25/24 09:38 Ipratropium 0.5 Mg/Albuterol Sulfate 2.5 Mg Ampul.Neb 3 Ml INHALATION 3 ml Q6HRT MARYANNE Administration Amlodipine Besylate 10 mg 09/23/24 09:00 09/25/24 09:08 Amlodipine Besylate 10 Mg Tablet PO 10 mg DAILY MARYANNE Administration Aspirin 81 mg 09/23/24 09:00 09/25/24 09:08 Aspirin 81 Mg Enteric Tablet PO 81 mg DAILY MARYANNE Administration Atorvastatin Calcium 40 mg 09/23/24 09:00 09/25/24 09:08 Atorvastatin 40 Mg Tablet PO 40 mg QAM MARYANNE Administration Azithromycin 500 mg 09/24/24 21:00 09/24/24 20:43 Azithromycin 250 Mg Tablet PO 09/26/24 21:01 500 mg QHS MARYANNE Administration Brimonidine Tartrate 1 drop 09/23/24 09:00 09/25/24 09:09 Brimonidine Tartrate 0.1% 5 Ml Ophth Drops EACH EYE 1 drop TID MARYANNE Administration Buspirone HCl 15 mg 09/23/24 09:00 09/25/24 09:07 Buspirone Hcl 5 Mg Tablet PO 15 mg BID MARYANNE Administration Clobazam 10 mg 09/23/24 17:00 09/24/24 17:06 Clobazam (*Crx) 10 Mg Tablet PO 10 mg DAILY@1700 MARYANNE Administration Clobazam 10 mg 09/23/24 21:00 09/24/24 20:43 Clobazam (*Crx) 10 Mg Tablet PO 10 mg HS MARYANNE Administration Diphenhydramine HCl 25 mg 09/23/24 08:17 Diphenhydramine Hcl Cap 25 Mg Capsule PO BID PRN rash Divalproex Sodium 750 mg 09/23/24 09:00 09/25/24 09:[address] 250 Mg Tabec PO 750 mg BID MARYANNE Administration Docusate Sodium 100 mg 09/23/24 09:00 09/25/24 09:08 Docusate Sodium 100 Mg Capsule PO 100 mg BID MARYANNE Administration Duloxetine HCl 60 mg 09/23/24 09:00 09/25/24 09:07 Duloxetine Hcl 60 Mg Capsule.Dr PO 60 mg DAILY MARYANNE Administration Enoxaparin Sodium 40 mg 09/23/24 09:00 09/25/24 09:08 Enoxaparin 40 Mg/0.4 Ml Syringe SUB-Q 40 mg Q12HR MARYANNE Administration Ceftriaxone Sodium 2 gm in 100 mls @ 200 mls/hr 09/24/24 09:20 09/25/24 09:08 Rocephin 2 Gm/Ns 100 Ml IVPB 200 mls/hr DAILY MARYANNE Administration Ibuprofen 600 mg 09/23/24 08:17 09/23/24 17:06 Ibuprofen 600 Mg Tablet PO 600 mg Q6H PRN Administration Pain 4-6 or fever Lamotrigine 25 mg 09/23/24 09:00 09/25/24 09:07 Lamotrigine 25 Mg Tablet PO 25 mg BID MARYANNE Administration Lamotrigine 100 mg 09/23/24 09:00 09/25/24 09:08 Lamotrigine 100 Mg Tablet PO 100 mg BID MARYANNE Administration Latanoprost 1 drop 09/23/24 21:00 09/24/24 20:44 Latanoprost 0.005% Op Soln 2.5 Ml Btl EACH EYE 1 drop HS MARYANNE Administration Lidocaine 1 patch 09/23/24 08:17 Lidocaine 5% Patch TOPICAL DAILY PRN pain Linaclotide 72 mcg 09/23/24 08:30 09/25/24 06:06 Linaclotide 72 Mcg Capsule PO 72 mcg BIDAC MARYANNE Administration Losartan Potassium 25 mg 09/23/24 09:00 09/25/24 09:08 Losartan Potassium 25 Mg Tablet PO 25 mg QAM MARYANNE Administration Multi-Ingred Cream/Lotion/Oil/Oint 1 applic 09/23/24 12:00 09/24/24 12:35 Eucerin Cream 120 Gm Jar TOPICAL 1 applic Q24H MARYANNE Administration Multivitamins/Minerals 1 tab 09/23/24 09:00 09/25/24 09:08 Multivitamins /C Lutein (Centrum Silver) Tablet *Bkc PO 1 tab QAM MARYANNE Administration Mupirocin 1 applic 09/24/24 21:00 09/25/24 09:09 Mupirocin 2% Oint 22 Gm Tube EACH NARE 1 applic Q12HR MARYANNE Administration Oxcarbazepine 600 mg 09/23/24 09:00 09/25/24 09:08 Oxcarbazepine 300 Mg Tablet PO 600 mg TID MARYANNE Administration Pantoprazole Sodium 40 mg 09/23/24 09:00 09/25/24 09:08 Pantoprazole 40 Mg Tablet PO 40 mg QAM MARYANNE Administration Polyethylene Glycol 17 gm 09/23/24 08:22 Polyethylene Glycol 3350 17 Gm Powd.Pack PO DAILY PRN constipation Risperidone 1 mg 09/23/24 09:00 09/25/24 09:08 Risperidone 1 Mg Tablet PO 1 mg BID MARYANNE Administration Fluticasone/Salmeterol 2 puff 09/23/24 09:00 09/25/24 09:38 Fluticasone/Salmeterol 115-21 Mcg Inhaler 1 Puff INHALATION 2 puff Q12HRT MARYANNE Administration Sodium Chloride 2 gm 09/23/24 09:00 09/25/24 09:08 Sodium Chloride 1 Gm Tablet PO 2 gm TID MARYANNE Administration Triamcinolone Acetonide 1 applic 09/23/24 09:00 09/25/24 09:09 Triamcinolone Acet 0.1% Cream 15 Gm Tube TOPICAL 1 applic DAILY MARYANNE Administration Radiology Results: ITS Impressions Chest X-Ray 09/23/24 15:00 IMPRESSION: 1. Small left pleural effusion. 2. Stable airspace opacities in left lower lung zone, likely rounded atelectasis. 3. Cardiomegaly. Thoracentesis Ultrasound 09/23/24 15:11 IMPRESSION: 1. Successful ultrasound-guided thoracentesis yielding 50 mL of yellow fluid. At the end of the procedure, blood tinged the fluid red. Labs Labs: Laboratory Results - last 24 hr 09/25/24 04:49 WBC 9.7 RBC 3.14 L Hgb 9.5 L Hct 30.4 L MCV 96.8 MCH 30.3 MCHC 31.3 L RDW 18.1 H Plt Count 200 MPV 8.9 Immature Gran % (Auto) 0.5 Neut % (Auto) 63.7 Lymph % (Auto) 14.8 L [place] % (Auto) 11.4 H Eos % (Auto) 9.4 H Baso % (Auto) 0.2 Lymph # (Auto) 1.44 [place] # (Auto) 1.1 H Eos # (Auto) 0.9 H Baso # (Auto) 0.0 Abs Immat Gran (auto) 0.05 H Absolute Neuts (auto) 6.2 Absolute Nucleated RBC 0.000 Nucleated RBC % 0.0 Sodium 136 L Potassium 4.0 Chloride 104 Carbon Dioxide 24 Anion Gap 8 BUN 21 H Creatinine 1.11 Estim Creat Clear Calc 105 Estimated GFR > 60 Glucose 113 H Calcium 8.4 Magnesium 2.1 Total Bilirubin 0.1 L AST 66 H ALT 29 Alkaline Phosphatase 96 Total Protein 6.0 L Albumin 2.9 L Quality VTE Prophylaxis VTE prophylaxis: pharmacologic ordered (Lovenox 40 mg q.12 hours due to the BMI greater than 40)
[2024-09-25] MEDS: EUCERIN CREAM 120 GM JAR 1 APPLIC TOPICAL (12:42)
--- NOTE | 2024-09-25 15:34 | PC.NURSE ---
On 09/25/24, the student, Kade Ferguson, provided care and completed [facility] documentation on this patient. I have reviewed the student's documentation and agree with the findings.
[2024-09-25] MEDS: cloBAZam (*CRX) 10 MG TABLET PO ×2 (17:05→20:27)
[2024-09-25] MEDS: diphenhydrAMINE HCl CAP 25 MG CAPSULE PO (20:26)
[2024-09-25] MEDS: AZITHROMYCIN 250 MG TABLET 500 MG PO (20:26)
[2024-09-25] MEDS: LATANOPROST 0.005% OP SOLN 2.5 ML BTL 1 DROP EACH EYE (20:29)
[2024-09-26] VITALS (15 sets, daily range): BP systolic 108–121; BP diastolic 43–56; PULSE 76–788; RESP 18–20; TEMP 36.4–36.9; O2SAT 93–96
[2024-09-26] MEDS: IPRATROPIUM 0.5 MG/ALBUTEROL SULFATE 2.5 MG AMPUL.NEB 3 ML INHALATION ×3 (02:10→20:37)
[2024-09-26] MEDS: diphenhydrAMINE HCl CAP 25 MG CAPSULE PO ×2 (03:49→21:18)
[2024-09-26 05:51] LABS: Basophils Percent Auto 0.3 % (0.2-1.2); Eosinophils Absolute Auto 0.8 K/mm3 (0-0.3); Eosinophils Percent Auto 13.4 % (0-4.4); Hematocrit 29.7 % (42.0-52.0); Hemoglobin 9.2 g/dL (14.0-18.0); Immature Granulocyte Absolute 0.07 K/mm3 (0.00-0.031); Immature Granulocyte Percent A 1.1 % (0-0.5); Lymphocytes Absolute Auto 1.21 K/mm3 (0.9-3.2); Lymphocytes Percent Auto 19.4 % (18.3-44.2); Mean Corpuscular Hemoglobin 29.5 pg (26-34); Mean Corpuscular Volume 95.2 fl (80-100); Mean Platelet Volume 8.7 fl (7.4-10.4); Monocytes Absolute Auto 0.7 K/mm3 (0.1-0.6); Monocytes Percent Auto 10.6 % (2.6-8.5); Neutrophils Absolute Auto 3.5 K/mm3 (1.3-6.7); Neutrophils Percent Auto 55.2 % (45.5-73.1); Platelet Count Result 201 k/mm3 (150-375); Red Blood Count 3.12 M/mm3 (4.6-6.20); Red Cell Distribution Width 18.1 % (11.5-14.5); White Blood Count 6.3 K/mm3 (4.5-10.0)
[2024-09-26 06:06] LABS: Alanine Aminotransferase 26 U/L (6-50); Albumin Level 2.7 g/dL (3.5-5.1); Alkaline Phosphatase 88 U/L (38-126); Anion Gap 7 mmol/L (4-12); Aspartate Amino Transferase 49 U/L (17-59); Bilirubin,Total 0.2 mg/dL (0.2-1.3); Blood Urea Nitrogen 21 mg/dL (9-20); Calcium 8.3 mg/dL (8.4-10.2); Carbon Dioxide 27 mmol/L (22-30); Chloride 103 mmol/L (98-107); Estimated CRCL calculation 125 ml/min; Estimated Glomerular Filt Rate > 60; Glucose 87 mg/dL (65-110); Magnesium 2.2 mg/dL (1.6-2.3); Potassium 4.5 mmol/L (3.4-5.0); Sodium 137 mmol/L (137-145)
[2024-09-26] MEDS: LINACLOTIDE 72 MCG CAPSULE PO ×2 (06:47→17:37)
[2024-09-26] MEDS: OXcarbazepine 300 MG TABLET 600 MG PO ×3 (09:00→17:36)
[2024-09-26] MEDS: cefTRIAXone 2 GM/NS 100 ML 2 GM/100 ML BAG IVPB (09:00)
[2024-09-26] MEDS: ENOXAPARIN 40 MG/0.4 ML SYRINGE SUB-Q ×2 (09:00→21:19)
[2024-09-26] MEDS: MULTIVITAMINS /C LUTEIN (CENTRUM SILVER) TABLET *BKC 1 TAB PO (09:02)
[2024-09-26] MEDS: lamoTRIgine 25 MG TABLET PO ×2 (09:02→17:36)
[2024-09-26] MEDS: DIVALPROEX SODIUM DR 250 MG TABEC 750 MG PO ×2 (09:02→17:36)
[2024-09-26] MEDS: lamoTRIgine 100 MG TABLET PO ×2 (09:02→17:37)
[2024-09-26] MEDS: amLODIPine BESYLATE 10 MG TABLET PO (09:03)
[2024-09-26] MEDS: LOSARTAN POTASSIUM 25 MG TABLET PO (09:03)
[2024-09-26] MEDS: DULoxetine HCL 60 MG CAPSULE.DR PO (09:03)
[2024-09-26] MEDS: ATORVASTATIN 40 MG TABLET PO (09:03)
[2024-09-26] MEDS: PANTOPRAZOLE 40 MG TABLET PO (09:03)
[2024-09-26] MEDS: DOCUSATE SODIUM 100 MG CAPSULE PO ×2 (09:03→17:35)
[2024-09-26] MEDS: ASPIRIN 81 MG ENTERIC TABLET PO (09:03)
[2024-09-26] MEDS: risperiDONE 1 MG TABLET PO ×2 (09:03→17:36)
[2024-09-26] MEDS: MUPIROCIN 2% OINT 22 GM TUBE 1 APPLIC EACH NARE ×2 (09:06→21:27)
[2024-09-26] MEDS: BRIMONIDINE TARTRATE 0.1% 5 ML OPHTH DROPS 1 DROP EACH EYE ×3 (09:07→17:37)
[2024-09-26] MEDS: TRIAMCINOLONE ACET 0.1% CREAM 15 GM TUBE 1 APPLIC TOPICAL (09:07)
[2024-09-26] MEDS: SODIUM CHLORIDE 1 GM TABLET 2 GM PO ×3 (09:13→17:36)
--- NOTE | 2024-09-26 10:03 | P.PNIM_ITS ---
Progress Note: A&P Assessment and Plan (1) Sepsis: Qualifiers: Sepsis type: sepsis due to unspecified organism Sepsis acute organ dysfunction status: without acute organ dysfunction Qualified Code(s): A41.9 - Sepsis, unspecified organism Code(s): A41.9 - Sepsis, unspecified organism Status: Acute (2) Pneumonia: Qualifiers: Laterality: left Lung location: lower lobe of lung Pneumonia type: due to unspecified organism Qualified Code(s): J18.9 - Pneumonia, unspecified organism Code(s): J18.9 - Pneumonia, unspecified organism Status: Acute (3) Snoring: Code(s): R06.83 - Snoring Status: Acute (4) BMI greater than 40: Status: Acute (5) Chronic pruritic rash in adult: Code(s): L29.89 - Other pruritus Status: Acute (6) Chronic venous stasis dermatitis: Code(s): I87.2 - Venous insufficiency (chronic) (peripheral) Status: Acute (7) Bipolar disorder: Qualifiers: Active/Remission status: remission status unspecified Qualified Code(s): F31.9 - Bipolar disorder, unspecified Code(s): F31.9 - Bipolar disorder, unspecified Status: Acute Plan Sepsis, improving Cellulitis vs pneumonia/Empyema Patient has multiple widespread skin rashes and erythema Blood culture positive for GAS Now on Rocephin Pleural fluid culture pending monitor GAS bacteremia,likely from Cellulitis Cellulitis vs Pneumonia/Empyema Blood culture positive Group A strept repeat culture pendigng Day 4/14 Rocephin Loculated left pleural effusion and chronic left lung opacities r/o infection s/p Thoracentesis, pleural fluid studies pending continue Rocephin and monitor Pulmonology following MRSA colonization MRSA screening positive Bactroban ordered Psychogenic Hyponatremia resolved continue salt tablets Chronic pruritics Continue home triamcinolone cream Chronic venous stasis continue compression stocks monitor Epilepsy continue home Deparkote monitor HTN continue home meds DVT prophylaxis on Sq Lovenox Subjective Date/time seen: 09/26/24 10:03 Interval history: Patient comfortable at bedside Awaiting pleural culture finalization Review of Systems Review of Systems: Review of systems limited due to the patient's baseline intellectual disability and psychiatric illness. Exam Narrative: Weight 154.5 kg BMI 47.5 Const: Other: Morbidly obese, chronically ill-appearing, appears older than stated age, poor hygiene HENMT: Other: Mucous membranes are moist, no oral pharyngeal erythema, crowded posterior oropharynx, head is normocephalic atraumatic Eyes: Other: Pupils are it difficult to assess because when I tried to evaluate the patient's pupils he closes eyes tightly, no scleral icterus Neck: Other: Large neck circumference, difficult to assess for lymphadenopathy or thyromegaly due to patient positioning and cooperation Resp: Other: * Conversational tachypnea, decreased breath sounds throughout anterior nieto Cardio: Other: Tachycardic, regular rhythm, 2+ bilateral radial pedal pulses GI: Other: Obese, nontender, positive bowel sounds, soft : Other: Pure wick catheter in place Skin: Other: Thickened, lichenified rash toe dorsal forearms bilaterally with smaller areas of rash across the trunk and lower extremities, large areas of thick flaking skin skin from the bilateral shins calves and feet bilaterally with underlying chronic erythema and thickening consistent with chronic venous stasis dermatitis Neuro: Other: Alert oriented to name and the fact that he is in the hospital, speech is clear but slow, no obvious facial asymmetry, exam limited due to patient's limited understanding of instructions from baseline intellectual disability, no lo calizing neurologic deficits noted given exam limits. Extrem: Other: Chronic venous stasis changes/skin changes as noted above, lipedema noted, no open wounds to lower extremities Psych: Other: Pleasantly confused, cooperative, anxious Objective Data Vital Signs Vital Signs: Vital Signs - 24 hr 09/25/24 12:00 09/25/24 14:00 09/25/24 14:39 Temperature Pulse Rate 80 84 80 Respiratory Rate 20 18 Blood Pressure 122/50 L Pulse Oximetry 98 Oxygen Delivery Oxygen Flow Rate 09/25/24 14:46 09/25/24 16:00 09/25/24 20:25 Temperature Pulse Rate 80 81 85 Respiratory Rate 18 18 Blood Pressure Pulse Oximetry Oxygen Delivery Oxygen Flow Rate 09/25/24 20:32 09/25/24 20:36 09/25/24 20:45 Temperature Pulse Rate 81 Respiratory Rate 18 Blood Pressure Pulse Oximetry 95 Oxygen Delivery Nasal Cannula Nasal Cannula Oxygen Flow Rate 1 1 09/25/24 20:45 09/25/24 22:00 09/26/24 00:00 Temperature 97.6 F Pulse Rate 87 81 81 Respiratory Rate 18 Blood Pressure 128/51 L Pulse Oximetry 94 Oxygen Delivery Oxygen Flow Rate 09/26/24 02:10 09/26/24 02:18 09/26/24 04:00 Temperature Pulse Rate 78 80 84 Respiratory Rate 18 18 Blood Pressure Pulse Oximetry Oxygen Delivery Oxygen Flow Rate 09/26/24 06:00 Temperature 97.7 F Pulse Rate 85 Respiratory Rate 18 Blood Pressure 121/46 L Pulse Oximetry 96 Oxygen Delivery Oxygen Flow Rate Intake/Output Intake/Output: Intake & Output 09/23/24 09/24/24 09/25/24 09/26/24 23:59 23:59 23:59 23:59 Intake Total 1398 3142 1358 260 Output Total 1100 1000 3200 1400 Balance 298 6094 -2050 -5128 Meds/Results Medications: Active Medications Generic Name Dose Route Start Last Admin Trade Name Freq PRN Reason Stop Dose Admin Acetaminophen 650 mg 09/23/24 00:50 Acetaminophen 325 Mg Tablet PO Q4H PRN Mild Pain (1-3) or Fever Albuterol/Ipratropium 3 ml 09/23/24 02:00 09/26/24 08:45 Ipratropium 0.5 Mg/Albuterol Sulfate 2.5 Mg Ampul.Neb 3 Ml INHALATION Not Given Q6HRT [facility] Amlodipine Besylate 10 mg 09/23/24 09:00 09/26/24 09:03 Amlodipine Besylate 10 Mg Tablet PO 10 mg DAILY MARYANNE Administration Aspirin 81 mg 09/23/24 09:00 09/26/24 09:03 Aspirin 81 Mg Enteric Tablet PO 81 mg DAILY MARYANNE Administration Atorvastatin Calcium 40 mg 09/23/24 09:00 09/26/24 09:03 Atorvastatin 40 Mg Tablet PO 40 mg QAM MARYANNE Administration Azithromycin 500 mg 09/24/24 21:00 09/25/24 20:26 Azithromycin 250 Mg Tablet PO 09/26/24 21:01 500 mg QHS [facility] Administration Brimonidine Tartrate 1 drop 09/23/24 09:00 09/26/24 09:07 Brimonidine Tartrate 0.1% 5 Ml Ophth Drops EACH EYE 1 drop TID MARYANNE Administration Buspirone HCl 15 mg 09/23/24 09:00 09/25/24 17:04 Buspirone Hcl 5 Mg Tablet PO 15 mg BID MARYANNE Administration Clobazam 10 mg 09/23/24 17:00 09/25/24 17:05 Clobazam (*Crx) 10 Mg Tablet PO 10 mg DAILY@1700 MARYANNE Administration Clobazam 10 mg 09/23/24 21:00 09/25/24 20:27 Clobazam (*Crx) 10 Mg Tablet PO 10 mg HS MARYANNE Administration Diphenhydramine HCl 25 mg 09/23/24 08:17 09/26/24 03:49 Diphenhydramine Hcl Cap 25 Mg Capsule PO 25 mg BID PRN Administration rash Divalproex Sodium 750 mg 09/23/24 09:00 09/26/24 09:[address] 250 Mg Tabec PO 750 mg BID MARYANNE Administration Docusate Sodium 100 mg 09/23/24 09:00 09/26/24 09:03 Docusate Sodium 100 Mg Capsule PO 100 mg BID MARYANNE Administration Duloxetine HCl 60 mg 09/23/24 09:00 09/26/24 09:03 Duloxetine Hcl 60 Mg Capsule.Dr PO 60 mg DAILY MARYANNE Administration Enoxaparin Sodium 40 mg 09/23/24 09:00 09/26/24 09:00 Enoxaparin 40 Mg/0.4 Ml Syringe SUB-Q 40 mg Q12HR MARYANNE Administration Ceftriaxone Sodium 2 gm in 100 mls @ 200 mls/hr 09/24/24 09:20 09/26/24 09:00 Rocephin 2 Gm/Ns 100 Ml IVPB 200 mls/hr DAILY MARYANNE Administration Ibuprofen 600 mg 09/23/24 08:17 09/23/24 17:06 Ibuprofen 600 Mg Tablet PO 600 mg Q6H PRN Administration Pain 4-6 or fever Lamotrigine 25 mg 09/23/24 09:00 09/26/24 09:02 Lamotrigine 25 Mg Tablet PO 25 mg BID MARYANNE Administration Lamotrigine 100 mg 09/23/24 09:00 09/26/24 09:02 Lamotrigine 100 Mg Tablet PO 100 mg BID MARYANNE Administration Latanoprost 1 drop 09/23/24 21:00 09/25/24 20:29 Latanoprost 0.005% Op Soln 2.5 Ml Btl EACH EYE 1 drop HS MARYANNE Administration Lidocaine 1 patch 09/23/24 08:17 Lidocaine 5% Patch TOPICAL DAILY PRN pain Linaclotide 72 mcg 09/23/24 08:30 09/26/24 06:47 Linaclotide 72 Mcg Capsule PO 72 mcg BIDAC MARYANNE Administration Losartan Potassium 25 mg 09/23/24 09:00 09/26/24 09:03 Losartan Potassium 25 Mg Tablet PO 25 mg QAM MARYANNE Administration Multi-Ingred Cream/Lotion/Oil/Oint 1 applic 09/23/24 12:00 09/25/24 12:42 Eucerin Cream 120 Gm Jar TOPICAL 1 applic Q24H MARYANNE Administration Multivitamins/Minerals 1 tab 09/23/24 09:00 09/26/24 09:02 Multivitamins /C Lutein (Centrum Silver) Tablet *Bkc PO 1 tab QAM MARYANNE Administration Mupirocin 1 applic 09/24/24 21:00 09/26/24 09:06 Mupirocin 2% Oint 22 Gm Tube EACH NARE 1 applic Q12HR MARYANNE Administration Oxcarbazepine 600 mg 09/23/24 09:00 09/26/24 09:00 Oxcarbazepine 300 Mg Tablet PO 600 mg TID MARYANNE Administration Pantoprazole Sodium 40 mg 09/23/24 09:00 09/26/24 09:03 Pantoprazole 40 Mg Tablet PO 40 mg QAM MARYANNE Administration Polyethylene Glycol 17 gm 09/23/24 08:22 Polyethylene Glycol 3350 17 Gm Powd.Pack PO DAILY PRN constipation Risperidone 1 mg 09/23/24 09:00 09/26/24 09:03 Risperidone 1 Mg Tablet PO 1 mg BID MARYANNE Administration Fluticasone/Salmeterol 2 puff 09/23/24 09:00 09/26/24 08:44 Fluticasone/Salmeterol 115-21 Mcg Inhaler 1 Puff INHALATION Not Given Q12HRT [facility] Sodium Chloride 2 gm 09/23/24 09:00 09/26/24 09:13 Sodium Chloride 1 Gm Tablet PO 2 gm TID MARYANNE Administration Triamcinolone Acetonide 1 applic 09/23/24 09:00 09/26/24 09:07 Triamcinolone Acet 0.1% Cream 15 Gm Tube TOPICAL 1 applic DAILY MARYANNE Administration Radiology Results: ITS Impressions Chest X-Ray 09/23/24 15:00 IMPRESSION: 1. Small left pleural effusion. 2. Stable airspace opacities in left lower lung zone, likely rounded atelectasis. 3. Cardiomegaly. Thoracentesis Ultrasound 09/23/24 15:11 IMPRESSION: 1. Successful ultrasound-guided thoracentesis yielding 50 mL of yellow fluid. At the end of the procedure, blood tinged the fluid red. Labs Labs: Laboratory Results - last 24 hr 09/26/24 05:23 WBC 6.3 RBC 3.12 L Hgb 9.2 L Hct 29.7 L MCV 95.2 MCH 29.5 MCHC 31.0 L RDW 18.1 H Plt Count 201 MPV 8.7 Immature Gran % (Auto) 1.1 H Neut % (Auto) 55.2 Lymph % (Auto) 19.4 [place] % (Auto) 10.6 H Eos % (Auto) 13.4 H Baso % (Auto) 0.3 Lymph # (Auto) 1.21 [place] # (Auto) 0.7 H Eos # (Auto) 0.8 H Baso # (Auto) 0.0 Abs Immat Gran (auto) 0.07 H Absolute Neuts (auto) 3.5 Absolute Nucleated RBC 0.000 Nucleated RBC % 0.0 Sodium 137 Potassium 4.5 Chloride 103 Carbon Dioxide 27 Anion Gap 7 BUN 21 H Creatinine 0.92 Estim Creat Clear Calc 125 Estimated GFR > 60 Glucose 87 Calcium 8.3 L Magnesium 2.2 Total Bilirubin 0.2 AST 49 ALT 26 Alkaline Phosphatase 88 Total Protein 6.0 L Albumin 2.7 L Quality VTE Prophylaxis VTE prophylaxis: pharmacologic ordered (Lovenox 40 mg q.12 hours due to the BMI greater than 40)
[2024-09-26] MEDS: busPIRone HCL 5 MG TABLET 15 MG PO ×2 (12:20→17:36)
[2024-09-26] MEDS: EUCERIN CREAM 120 GM JAR 1 APPLIC TOPICAL (12:24)
[2024-09-26] MEDS: cloBAZam (*CRX) 10 MG TABLET PO ×2 (17:36→21:17)
[2024-09-26] MEDS: FLUTICASONE/SALMETEROL 115-21 MCG INHALER 1 PUFF 2 PUFF INHALATION (20:37)
[2024-09-26] MEDS: AZITHROMYCIN 250 MG TABLET 500 MG PO (21:18)
[2024-09-26] MEDS: LATANOPROST 0.005% OP SOLN 2.5 ML BTL 1 DROP EACH EYE (21:32)
[2024-09-27] VITALS (17 sets, daily range): BP systolic 127–150; BP diastolic 65–67; PULSE 74–84; RESP 16–20; TEMP 36.4–37; O2SAT 93–97
[2024-09-27] MEDS: IPRATROPIUM 0.5 MG/ALBUTEROL SULFATE 2.5 MG AMPUL.NEB 3 ML INHALATION ×4 (01:33→20:50)
[2024-09-27 06:52] LABS: Basophils Percent Auto 0.6 % (0.2-1.2); Eosinophils Percent Auto 14.3 % (0-4.4); Hematocrit 29.6 % (42.0-52.0); Hemoglobin 9.5 g/dL (14.0-18.0); Immature Granulocyte Absolute 0.17 K/mm3 (0.00-0.031); Immature Granulocyte Percent A 2.5 % (0-0.5); Lymphocytes Absolute Auto 1.26 K/mm3 (0.9-3.2); Lymphocytes Percent Auto 18.6 % (18.3-44.2); Mean Corpuscular HGB Conc 32.1 g/dl (32-36); Mean Corpuscular Hemoglobin 30.2 pg (26-34); Mean Platelet Volume 8.4 fl (7.4-10.4); Monocytes Absolute Auto 0.8 K/mm3 (0.1-0.6); Monocytes Percent Auto 12.2 % (2.6-8.5); Neutrophils Absolute Auto 3.5 K/mm3 (1.3-6.7); Neutrophils Percent Auto 51.8 % (45.5-73.1); Nucleated Red Blood Cells Perc 0.3 % (0.0-0.2); Platelet Count Result 192 k/mm3 (150-375); Red Blood Count 3.15 M/mm3 (4.6-6.20); Red Cell Distribution Width 17.7 % (11.5-14.5); White Blood Count 6.8 K/mm3 (4.5-10.0)
[2024-09-27] MEDS: LINACLOTIDE 72 MCG CAPSULE PO ×2 (06:57→18:24)
[2024-09-27] MEDS: diphenhydrAMINE HCl CAP 25 MG CAPSULE PO (06:57)
[2024-09-27 07:07] LABS: Alanine Aminotransferase 29 U/L (6-50); Albumin Level 2.9 g/dL (3.5-5.1); Alkaline Phosphatase 103 U/L (38-126); Anion Gap 4 mmol/L (4-12); Aspartate Amino Transferase 51 U/L (17-59); Bilirubin,Total 0.2 mg/dL (0.2-1.3); Blood Urea Nitrogen 16 mg/dL (9-20); Calcium 8.3 mg/dL (8.4-10.2); Carbon Dioxide 30 mmol/L (22-30); Chloride 96 mmol/L (98-107); Estimated CRCL calculation 132 ml/min; Estimated Glomerular Filt Rate > 60; Glucose 101 mg/dL (65-110); Magnesium 2.1 mg/dL (1.6-2.3); Potassium 4.4 mmol/L (3.4-5.0); Sodium 130 mmol/L (137-145)
[2024-09-27] MEDS: FLUTICASONE/SALMETEROL 115-21 MCG INHALER 1 PUFF 2 PUFF INHALATION ×2 (08:20→20:50)
[2024-09-27] MEDS: ATORVASTATIN 40 MG TABLET PO (09:14)
[2024-09-27] MEDS: SODIUM CHLORIDE 1 GM TABLET 2 GM PO ×3 (09:15→18:23)
[2024-09-27] MEDS: amLODIPine BESYLATE 10 MG TABLET PO (09:15)
[2024-09-27] MEDS: busPIRone HCL 5 MG TABLET 15 MG PO ×2 (09:15→18:24)
[2024-09-27] MEDS: PANTOPRAZOLE 40 MG TABLET PO (09:15)
[2024-09-27] MEDS: OXcarbazepine 300 MG TABLET 600 MG PO ×2 (09:15→12:22)
[2024-09-27] MEDS: DOCUSATE SODIUM 100 MG CAPSULE PO ×2 (09:16→18:24)
[2024-09-27] MEDS: ASPIRIN 81 MG ENTERIC TABLET PO (09:16)
[2024-09-27] MEDS: LOSARTAN POTASSIUM 25 MG TABLET PO (09:16)
[2024-09-27] MEDS: lamoTRIgine 25 MG TABLET PO ×2 (09:16→18:23)
[2024-09-27] MEDS: DIVALPROEX SODIUM DR 250 MG TABEC 750 MG PO ×2 (09:16→18:24)
[2024-09-27] MEDS: lamoTRIgine 100 MG TABLET PO ×2 (09:16→18:24)
[2024-09-27] MEDS: risperiDONE 1 MG TABLET PO ×2 (09:16→18:24)
[2024-09-27] MEDS: BRIMONIDINE TARTRATE 0.1% 5 ML OPHTH DROPS 1 DROP EACH EYE ×3 (09:17→18:24)
[2024-09-27] MEDS: ENOXAPARIN 40 MG/0.4 ML SYRINGE SUB-Q ×2 (09:17→20:37)
[2024-09-27] MEDS: DULoxetine HCL 60 MG CAPSULE.DR PO (09:17)
[2024-09-27] MEDS: cefTRIAXone 2 GM/NS 100 ML 2 GM/100 ML BAG IVPB (09:17)
[2024-09-27] MEDS: MULTIVITAMINS /C LUTEIN (CENTRUM SILVER) TABLET *BKC 1 TAB PO (09:18)
[2024-09-27] MEDS: MUPIROCIN 2% OINT 22 GM TUBE 1 APPLIC EACH NARE ×2 (09:18→20:37)
[2024-09-27] MEDS: TRIAMCINOLONE ACET 0.1% CREAM 15 GM TUBE 1 APPLIC TOPICAL (09:19)
--- NOTE | 2024-09-27 10:56 | PCSTNOTE ---
Please refer to the Bedside Swallow Evaluation in the EMR. Please note, silent aspiration cannot be ruled out at bedside. The above cooperative pt was seen for a swallow evaluation at bedside. The pt was positioned upright in the bed. He was alert & able to follow commands. He is currently on a regular diet. Oral mucosa is normal; natural dentition is in good condition; Oral peripheral exam revealed lingual and labial structures to be normal. He was able to dry swallow on command and exhibited a strong cough and clear vocal quality. He was tested with applesauce, pudding, cracker and thin liquids. The oral stages appeared WNL. No oral residue, leakage, or pocketing was noted. During the pharyngeal stage, swallow reflex appeared prompt & laryngeal elevation adequate but inconsistent cough was noted. Due to the inconsistent nature of the cough during the assessment, dysphagia, while not expected, could not definitively be ruled out. RN reported similar findings i.e. gulping of liquids with no clinical s/s of aspiration then other inconsistent coughing. Impression: inconsistent coughing cannot rule out dysphagia at bedside. Recommendation: MBS to further assess swallow and to definitively rule out aspiration. Thank you for this referral.
--- NOTE | 2024-09-27 12:06 | P.PNIM_ITS ---
Progress Note: A&P Assessment and Plan (1) Sepsis: Qualifiers: Sepsis type: sepsis due to unspecified organism Sepsis acute organ dysfunction status: without acute organ dysfunction Qualified Code(s): A41.9 - Sepsis, unspecified organism Code(s): A41.9 - Sepsis, unspecified organism Status: Acute (2) Pneumonia: Qualifiers: Laterality: left Lung location: lower lobe of lung Pneumonia type: due to unspecified organism Qualified Code(s): J18.9 - Pneumonia, unspecified organism Code(s): J18.9 - Pneumonia, unspecified organism Status: Acute (3) Snoring: Code(s): R06.83 - Snoring Status: Acute (4) BMI greater than 40: Status: Acute (5) Chronic pruritic rash in adult: Code(s): L29.89 - Other pruritus Status: Acute (6) Chronic venous stasis dermatitis: Code(s): I87.2 - Venous insufficiency (chronic) (peripheral) Status: Acute (7) Bipolar disorder: Qualifiers: Active/Remission status: remission status unspecified Qualified Code(s): F31.9 - Bipolar disorder, unspecified Code(s): F31.9 - Bipolar disorder, unspecified Status: Acute Plan Sepsis, improving Cellulitis vs pneumonia/Empyema Patient has multiple widespread skin rashes and erythema Blood culture positive for GAS Now on Rocephin Pleural fluid culture pending monitor GAS bacteremia,likely from Cellulitis Cellulitis Blood culture positive Group A strept repeat culture pendigng Day 5/14 Rocephin Loculated left pleural effusion and chronic left lung opacities r/o infection s/p Thoracentesis, pleural fluid studies pending continue Rocephin and monitor Pulmonology following MRSA colonization MRSA screening positive Bactroban ordered Psychogenic Hyponatremia resolved continue salt tablets Chronic pruritics Continue home triamcinolone cream Chronic venous stasis continue compression stocks monitor Epilepsy continue home Deparkote monitor HTN continue home meds DVT prophylaxis on Sq Lovenox Subjective Date/time seen: 09/27/24 12:06 Interval history: Patient comfortable at bedside Patient to discharge tomorrow, it has been 3 days and pleural fluid culture is still negative Review of Systems Review of Systems: Review of systems limited due to the patient's baseline intellectual disability and psychiatric illness. Exam Narrative: Weight 154.5 kg BMI 47.5 Const: Other: Morbidly obese, chronically ill-appearing, appears older than stated age, poor hygiene HENMT: Other: Mucous membranes are moist, no oral pharyngeal erythema, crowded posterior oropharynx, head is normocephalic atraumatic Eyes: Other: Pupils are it difficult to assess because when I tried to evaluate the patient's pupils he closes eyes tightly, no scleral icterus Neck: Other: Large neck circumference, difficult to assess for lymphadenopathy or thyromegaly due to patient positioning and cooperation Resp: Other: * Conversational tachypnea, decreased breath sounds throughout anterior nieto Cardio: Other: Tachycardic, regular rhythm, 2+ bilateral radial pedal pulses GI: Other: Obese, nontender, positive bowel sounds, soft : Other: Pure wick catheter in place Skin: Other: Thickened, lichenified rash toe dorsal forearms bilaterally with smaller areas of rash across the trunk and lower extremities, large areas of thick flaking skin skin from the bilateral shins calves and feet bilaterally with underlying chronic erythema and thickening consistent with chronic venous stasis dermatitis Neuro: Other: Alert oriented to name and the fact that he is in the hospital, speech is clear but slow, no obvious facial asymmetry, exam limited due to patient's limited understanding of instructions from baseline intellectual disability, no localizing neurologic deficits noted given exam limits. Extrem: Other: Chronic venous stasis changes/skin changes as noted above, lipedema noted, no open wounds to lower extremities Psych: Other: Pleasantly confused, cooperative, anxious Objective Data Vital Signs Vital Signs: Vital Signs - 24 hr 09/26/24 12:00 09/26/24 13:56 09/26/24 14:00 Temperature 98.5 F Pulse Rate 81 788 H 82 Respiratory Rate 18 20 Blood Pressure 108/43 L Pulse Oximetry 95 Oxygen Delivery Fraction of Inspired Oxygen 09/26/24 16:00 09/26/24 20:00 09/26/24 20:00 Temperature Pulse Rate 83 84 Respiratory Rate Blood Pressure Pulse Oximetry Oxygen Delivery Room Air Fraction of Inspired Oxygen 09/26/24 20:37 09/26/24 20:45 09/26/24 22:19 Temperature 97.6 F Pulse Rate 79 82 76 Respiratory Rate 20 20 18 Blood Pressure 121/56 L Pulse Oximetry 94 Oxygen Delivery Fraction of Inspired Oxygen 09/27/24 00:00 09/27/24 01:33 09/27/24 01:40 Temperature Pulse Rate 74 75 80 Respiratory Rate 16 16 Blood Pressure Pulse Oximetry Oxygen Delivery Fraction of Inspired Oxygen 09/27/24 04:00 09/27/24 04:56 09/27/24 08:12 Temperature 97.7 F Pulse Rate 80 80 Respiratory Rate 20 Blood Pressure 130/67 Pulse Oximetry 96 97 Oxygen Delivery Room Air Fraction of Inspired Oxygen 21 09/27/24 08:12 09/27/24 08:21 Temperature Pulse Rate 75 76 Respiratory Rate 20 20 Blood Pressure Pulse Oximetry Oxygen Delivery Fraction of Inspired Oxygen Intake/Output Intake/Output: Intake & Output 09/24/24 09/25/24 09/26/24 09/28/24 23:59 23:59 23:59 00:59 Intake Total 3142 1358 4620 880 Output Total 1000 3200 2400 400 Balance 2142 -1842 2220 480 Meds/Results Medications: Active Medications Generic Name Dose Route Start Last Admin Trade Name Freq PRN Reason Stop Dose Admin Acetaminophen 650 mg 09/23/24 00:50 Acetaminophen 325 Mg Tablet PO Q4H PRN Mild Pain (1-3) or Fever Albuterol/Ipratropium 3 ml 09/23/24 02:00 09/27/24 08:12 Ipratropium 0.5 Mg/Albuterol Sulfate 2.5 Mg Ampul.Neb 3 Ml INHALATION 3 ml Q6HRT MARYANNE Administration Amlodipine Besylate 10 mg 09/23/24 09:00 09/27/24 09:15 Amlodipine Besylate 10 Mg Tablet PO 10 mg DAILY MARYANNE Administration Aspirin 81 mg 09/23/24 09:00 09/27/24 09:16 Aspirin 81 Mg Enteric Tablet PO 81 mg DAILY MARYANNE Administration Atorvastatin Calcium 40 mg 09/23/24 09:00 09/27/24 09:14 Atorvastatin 40 Mg Tablet PO 40 mg QAM MARYANNE Administration Brimonidine Tartrate 1 drop 09/23/24 09:00 09/27/24 09:17 Brimonidine Tartrate 0.1% 5 Ml Ophth Drops EACH EYE 1 drop TID MARYANNE Administration Buspirone HCl 15 mg 09/23/24 09:00 09/27/24 09:15 Buspirone Hcl 5 Mg Tablet PO 15 mg BID MARYANNE Administration Clobazam 10 mg 09/23/24 17:00 09/26/24 17:36 Clobazam (*Crx) 10 Mg Tablet PO 10 mg DAILY@1700 MARYANNE Administration Clobazam 10 mg 09/23/24 21:00 09/26/24 21:17 Clobazam (*Crx) 10 Mg Tablet PO 10 mg HS MARYANNE Administration Diphenhydramine HCl 25 mg 09/23/24 08:17 09/27/24 06:57 Diphenhydramine Hcl Cap 25 Mg Capsule PO 25 mg BID PRN Administration rash Divalproex Sodium 750 mg 09/23/24 09:00 09/27/24 09:[address] 250 Mg Tabec PO 750 mg BID MARYANNE Administration Docusate Sodium 100 mg 09/23/24 09:00 09/27/24 09:16 Docusate Sodium 100 Mg Capsule PO 100 mg BID MARYANNE Administration Duloxetine HCl 60 mg 09/23/24 09:00 09/27/24 09:17 Duloxetine Hcl 60 Mg Capsule.Dr PO 60 mg DAILY MARYANNE Administration Enoxaparin Sodium 40 mg 09/23/24 09:00 09/27/24 09:17 Enoxaparin 40 Mg/0.4 Ml Syringe SUB-Q 40 mg Q12HR MARYANNE Administration Ceftriaxone Sodium 2 gm in 100 mls @ 200 mls/hr 09/24/24 09:20 09/27/24 09:17 Rocephin 2 Gm/Ns 100 Ml IVPB 200 mls/hr DAILY MARYANNE Administration Ibuprofen 600 mg 09/23/24 08:17 09/23/24 17:06 Ibuprofen 600 Mg Tablet PO 600 mg Q6H PRN Administration Pain 4-6 or fever Lamotrigine 25 mg 09/23/24 09:00 09/27/24 09:16 Lamotrigine 25 Mg Tablet PO 25 mg BID MARYANNE Administration Lamotrigine 100 mg 09/23/24 09:00 09/27/24 09:16 Lamotrigine 100 Mg Tablet PO 100 mg BID MARYANNE Administration Latanoprost 1 drop 09/23/24 21:00 09/26/24 21:32 Latanoprost 0.005% Op Soln 2.5 Ml Btl EACH EYE 1 drop HS MARYANNE Administration Lidocaine 1 patch 09/23/24 08:17 Lidocaine 5% Patch TOPICAL DAILY PRN pain Linaclotide 72 mcg 09/23/24 08:30 09/27/24 06:57 Linaclotide 72 Mcg Capsule PO 72 mcg BIDAC MARYANNE Administration Losartan Potassium 25 mg 09/23/24 09:00 09/27/24 09:16 Losartan Potassium 25 Mg Tablet PO 25 mg QAM MARYANNE Administration Multi-Ingred Cream/Lotion/Oil/Oint 1 applic 09/27/24 12:00 Eucerin Cream 454 Gm Jar TOPICAL Q24H MARYANNE Multivitamins/Minerals 1 tab 09/23/24 09:00 09/27/24 09:18 Multivitamins /C Lutein (Centrum Silver) Tablet *Bkc PO 1 tab QAM MARYANNE Administration Mupirocin 1 applic 09/24/24 21:00 09/27/24 09:18 Mupirocin 2% Oint 22 Gm Tube EACH NARE 1 applic Q12HR MARYANNE Administration Oxcarbazepine 600 mg 09/23/24 09:00 09/27/24 09:15 Oxcarbazepine 300 Mg Tablet PO 600 mg TID MARYANNE Administration Pantoprazole Sodium 40 mg 09/23/24 09:00 09/27/24 09:15 Pantoprazole 40 Mg Tablet PO 40 mg QAM MARYANNE Administration Polyethylene Glycol 17 gm 09/23/24 08:22 Polyethylene Glycol 3350 17 Gm Powd.Pack PO DAILY PRN constipation Risperidone 1 mg 09/23/24 09:00 09/27/24 09:16 Risperidone 1 Mg Tablet PO 1 mg BID MARYANNE Administration Fluticasone/Salmeterol 2 puff 09/23/24 09:00 09/27/24 08:20 Fluticasone/Salmeterol 115-21 Mcg Inhaler 1 Puff INHALATION 2 puff Q12HRT MARYANNE Administration Sodium Chloride 2 gm 09/23/24 09:00 09/27/24 09:15 Sodium Chloride 1 Gm Tablet PO 2 gm TID MARYANNE Administration Triamcinolone Acetonide 1 applic 09/23/24 09:00 09/27/24 09:19 Triamcinolone Acet 0.1% Cream 15 Gm Tube TOPICAL 1 applic DAILY MARYANNE Administration Radiology Results: ITS Impressions Chest X-Ray 09/23/24 15:00 IMPRESSION: 1. Small left pleural effusion. 2. Stable airspace opacities in left lower lung zone, likely rounded atelectasis. 3. Cardiomegaly. Thoracentesis Ultrasound 09/23/24 15:11 IMPRESSION: 1. Successful ultrasound-guided thoracentesis yielding 50 mL of yellow fluid. At the end of the procedure, blood tinged the fluid red. Labs Labs: Laboratory Results - last 24 hr 09/27/24 06:47 WBC 6.8 RBC 3.15 L Hgb 9.5 L Hct 29.6 L MCV 94.0 MCH 30.2 MCHC 32.1 RDW 17.7 H Plt Count 192 MPV 8.4 Immature Gran % (Auto) 2.5 H Neut % (Auto) 51.8 Lymph % (Auto) 18.6 [place] % (Auto) 12.2 H Eos % (Auto) 14.3 H Baso % (Auto) 0.6 Lymph # (Auto) 1.26 [place] # (Auto) 0.8 H Eos # (Auto) 1.0 H Baso # (Auto) 0.0 Abs Immat Gran (auto) 0.17 H Absolute Neuts (auto) 3.5 Absolute Nucleated RBC 0.020 H Nucleated RBC % 0.3 H Sodium 130 L Potassium 4.4 Chloride 96 L Carbon Dioxide 30 Anion Gap 4 BUN 16 Creatinine 0.87 Estim Creat Clear Calc 132 Estimated GFR > 60 Glucose 101 Calcium 8.3 L Magnesium 2.1 Total Bilirubin 0.2 AST 51 ALT 29 Alkaline Phosphatase 103 Total Protein 6.0 L Albumin 2.9 L Quality VTE Prophylaxis VTE prophylaxis: pharmacologic ordered (Lovenox 40 mg q.12 hours due to the BMI greater than 40)
[2024-09-27] MEDS: EUCERIN CREAM 454 GM JAR 1 APPLIC TOPICAL (12:23)
[2024-09-27 17:53] LABS: Pneumococcal Antigen Urine NOT DETECTED
[2024-09-27] MEDS: cloBAZam (*CRX) 10 MG TABLET PO ×2 (18:25→20:36)
[2024-09-27] MEDS: OXcarbazepine 150 MG TABLET 600 MG PO (18:55)
[2024-09-27] MEDS: LATANOPROST 0.005% OP SOLN 2.5 ML BTL 1 DROP EACH EYE (20:37)
[2024-09-27 20:54] LABS: Glucose Pleural Fluid 86 mg/dL; Total Protein Pleural Fluid <3.0 g/dL
[2024-09-28 03:00] VITALS: PULSE 77; RESP 20
[2024-09-28] MEDS: IPRATROPIUM 0.5 MG/ALBUTEROL SULFATE 2.5 MG AMPUL.NEB 3 ML INHALATION ×2 (03:00→13:59)
[2024-09-28] MEDS: LINACLOTIDE 72 MCG CAPSULE PO (05:55)
[2024-09-28 06:00] VITALS: BP 141/48; PULSE 80; RESP 18; TEMP 36.3; O2SAT 96
[2024-09-28] MEDS: OXcarbazepine 300 MG TABLET 600 MG PO ×2 (09:21→13:28)
[2024-09-28] MEDS: DIVALPROEX SODIUM DR 250 MG TABEC 750 MG PO (09:21)
[2024-09-28] MEDS: DULoxetine HCL 60 MG CAPSULE.DR PO (09:22)
[2024-09-28] MEDS: SODIUM CHLORIDE 1 GM TABLET 2 GM PO ×2 (09:22→13:28)
[2024-09-28] MEDS: risperiDONE 1 MG TABLET PO (09:22)
[2024-09-28] MEDS: LOSARTAN POTASSIUM 25 MG TABLET PO (09:22)
[2024-09-28] MEDS: lamoTRIgine 100 MG TABLET PO (09:22)
[2024-09-28] MEDS: ATORVASTATIN 40 MG TABLET PO (09:22)
[2024-09-28] MEDS: lamoTRIgine 25 MG TABLET PO (09:22)
[2024-09-28] MEDS: MULTIVITAMINS /C LUTEIN (CENTRUM SILVER) TABLET *BKC 1 TAB PO (09:22)
[2024-09-28] MEDS: amLODIPine BESYLATE 10 MG TABLET PO (09:22)
[2024-09-28] MEDS: DOCUSATE SODIUM 100 MG CAPSULE PO (09:22)
[2024-09-28] MEDS: ASPIRIN 81 MG ENTERIC TABLET PO (09:22)
[2024-09-28] MEDS: busPIRone HCL 5 MG TABLET 15 MG PO (09:22)
[2024-09-28] MEDS: MUPIROCIN 2% OINT 22 GM TUBE 1 APPLIC EACH NARE (09:23)
[2024-09-28] MEDS: PANTOPRAZOLE 40 MG TABLET PO (09:23)
[2024-09-28] MEDS: ENOXAPARIN 40 MG/0.4 ML SYRINGE SUB-Q (09:23)
[2024-09-28] MEDS: TRIAMCINOLONE ACET 0.1% CREAM 15 GM TUBE 1 APPLIC TOPICAL (09:24)
[2024-09-28] MEDS: cefTRIAXone 2 GM/NS 100 ML 2 GM/100 ML BAG IVPB (09:24)
[2024-09-28] MEDS: BRIMONIDINE TARTRATE 0.1% 5 ML OPHTH DROPS 1 DROP EACH EYE ×2 (09:25→13:28)
--- NOTE | 2024-09-28 09:44 | PCRCNOTE ---
Window of time for administration has passed. See next scheduled administration.
--- NOTE | 2024-09-28 09:54 | P.DS_ITS ---
DS: Admitting Diagnosis Discharge Date 09/28/24 Admitting Diagnosis Sent in from skilled nursing due to increased shaking DS: Summary Hospital Course Hospital Course: 54-year-old male with a past medical history of seizures, essential hypertension, hyperlipidemia, GERD, glaucoma, bipolar disorder, intellectual disability, essential tremor, and morbid obesity among other chronic diseases who presented to the ER via EMS from [facility] due to increased shaking. Source of information is obtained from EMS records, skilled nursing records and ER physician report. The patient is only alert oriented x2 at baseline and is aware of his name and that he is in a hospital. He thinks that he was sent into the hospital due to being nervous. On arrival to the hospital he was noted to be coughing. He was also tachypneic and tachycardic. Shortly after arrival to the ER the patient spiked a fever to 101.9. White count was found to be elevated at 21. He denied any nausea or vomiting and has only been on the medical floor for a couple of hours but has already requested and drink at least 4 sodas. He has not yet voided since arriving to the medical floor but has pure wick catheter in place. He denies any abdominal pain. He has multiple areas of rash on his arms that he states are itchy all the time. He denies any chest pain or shortness of breath. When I arrived to the patient's room he was noted to be snoring with brief episodes of apnea. In the ER the patient had documented episodes of hypoxia but it does not appear that he was placed on oxygen. I suspect the periods of hypoxia were associated with apneic events but again this was not well documented. Patient was initially started on Vancomycin, and thoracentesis obtained and pleural fluid studies showed pH 7.361, protein <3, Glucose 86 making it a transudate ruling out infection. Thus sepsis emanated from diffuse skin cellulitis. blood culture positive for GAS and sensitive to LEvaquin. Patient received 5 days of IV antibiotics in the hospital and discharged on 14 more days of Levaquin today. Discharged back to skilled nursing. F/u with PCP in 3-5 days Time Spent with Patient Time attestation: Total time spent providing and/or coordinating discharge services: DS: Data Data Completed and Pending Completed studies during hospitalization: Pending at discharge 09/23/24 09:09 Cytology [PTH] Routine Labs on day of discharge: Labs from last 24 hours 09/23/24 09/23/24 14:41 11:33 Pleural Total Protein <3.0 Pleural LDH see note Pleural Glucose 86 Urine Pneumococcal Ag Not detected Preliminary micro results at discharge 09/23/24 14:50 Anaerobic Culture - Preliminary Pleural Fluid 09/24/24 12:14 Blood Culture - Preliminary Blood Discharge Plan Discharge Attending physician on discharge: Rachelle Lomeli Consulting providers: Domo Gonzalez Discharging Clinician: Rachelle Lomeli Anticipated Discharge Date/Time: 09/28/24 09:47 Patient Disposition: NH Shelter/Asst Living Activity: as tolerated Diet: regular Patient Instructions: Antibiotic Form Patient Language: Hebrew Stand Alone Forms: General Discharge Information Follow-up/Referrals: Yves,Ebonie Argueta MD [Primary Care Provider] - (Follow PCP in 3-5) Domo Gonzalez MD [Physician] - (Follow-up with pulmonology as instructed.) Discharge Medications: New levofloxacin 750 mg tablet 750 mg PO DAILY 14 Days Qty: 14 0RF Continued albuterol sulfate [Ventolin HFA] 90 mcg/actuation HFA aerosol inhaler 2 inh inhalation Q4H PRN (Reason: shortness of breath or wheezing) latanoprost 0.005 % drops 1 drp ophthalmic (eye) HS risperidone [Risperdal] 1 mg tablet 1 mg PO BID brimonidine [Alphagan P] 0.1 % drops 1 drp EACH EYE TID oxcarbazepine 600 mg tablet 600 mg PO TID clobazam 10 mg tablet 10 mg PO DAILY@1700 divalproex 500 mg tablet,delayed release (DR/EC) 500 mg PO Q12H docusate sodium 100 mg tablet 100 mg PO BID lamotrigine 25 mg tablet 25 mg PO BID Patient Comments: take 25mg tab with 100mg tab BID for a total of 125mg BID duloxetine 60 mg capsule,delayed release(DR/EC) 60 mg PO DAILY omeprazole 20 mg capsule,delayed release(DR/EC) 20 mg PO DAILY buspirone 15 mg tablet 15 mg PO BID acetaminophen 650 mg tablet extended release 650 mg PO Q4H PRN (Reason: pain (scale score 1-3)) amlodipine 10 mg tablet 10 mg PO DAILY ascorbic acid (vitamin C) [Vitamin C] 500 mg tablet 500 mg PO BID aspirin 81 mg tablet,delayed release (DR/EC) 81 mg PO DAILY atorvastatin 40 mg tablet 40 mg PO QAM clobazam 10 mg tablet 10 mg PO HS divalproex 250 mg tablet,delayed release (DR/EC) 750 mg PO BID ergocalciferol (vitamin D2) 1,250 mcg (50,000 unit) capsule 50,000 unit PO WEEKLY Patient Comments: weekly on ibuprofen 600 mg tablet 600 mg PO Q6H PRN (Reason: fever or pain) lamotrigine 100 mg tablet 100 mg PO BID lidocaine 4 % adhesive patch,medicated 1 patch topical DAILY PRN (Reason: pain) losartan 25 mg tablet 25 mg PO QAM polyethylene glycol 3350 [Miralax] 17 gram/dose powder 17 g PO DAILY PRN (Reason: constipation) sodium chloride 1,000 mg tablet,soluble 2,000 mg PO TID Adults Multivitamin 18 mg iron-400 mcg-25 mcg tablet 1 tablet PO QAM fluticasone propion-salmeterol [Advair Diskus] 250-50 mcg/dose blister with device 2 inh inhalation BID diphenhydramine HCl [Allergy (diphenhydramine)] 25 mg capsule 25 mg PO BID PRN (Reason: rash) doxycycline monohydrate 100 mg capsule 100 mg PO BID Patient Comments: PATIENT SET TO FINISH ANTIBIOTIC ON 09/24/2024 triamcinolone acetonide 0.1 % cream 1 applic TOPICAL DAILY Patient Comments: rash and unspecified skin eruption Linzess 72 mcg capsule 72 mcg PO BID Date of admission: 09/23/24 00:50 Primary Care Provider: Yves,Ebonie Argueta Admitting Provider: Susana Singh Attending physician on admission: Rachelle Lomeli Condition: Stable
[2024-09-28 11:28] LABS: SARS-CoV-2 RNA PCR Negative (Negative)
[2024-09-28 14:00] VITALS: BP 126/88; PULSE 74; PULSE 83; RESP 18; RESP 20; TEMP 36.5; O2SAT 95
[2024-09-29 19:57] LABS: Legionella pneumophila Ag Ur NOT DETECTED
== END 2024-09-28 15:06 | DRG 871 ==
LOC: ANHED 09-23 00:52 → ANH2MED 09-23 01:45
PROVIDERS: Emergency Medicine; Internal Medicine Pulmonary Disease; Admitting Provider Internal Medicine; Emergency Provider Emergency Medicine; PCP Family Medicine; Visit Provider Internal Medicine
DX: A41.9 Sepsis, unspecified organism (principal); J18.9 Pneumonia, unspecified organism; L03.90 Cellulitis, unspecified; Z68.42 Body mass index [BMI] 45.0-49.9, adult; J44.0 Chronic obstructive pulmonary disease with (acute) lower respiratory infection; J90 Pleural effusion, not elsewhere classified; E87.1 Hypo-osmolality and hyponatremia; B95.0 Streptococcus, group A, as the cause of diseases classified elsewhere; E66.01 Morbid (severe) obesity due to excess calories; E78.5 Hyperlipidemia, unspecified; E55.9 Vitamin D deficiency, unspecified; F31.9 Bipolar disorder, unspecified; F79 Unspecified intellectual disabilities; G40.909 Epilepsy, unspecified, not intractable, without status epilepticus; H40.9 Unspecified glaucoma; I10 Essential (primary) hypertension; I87.2 Venous insufficiency (chronic) (peripheral); K59.09 Other constipation; K21.9 Gastro-esophageal reflux disease without esophagitis; R63.1 Polydipsia; R25.1 Tremor, unspecified; R21 Rash and other nonspecific skin eruption; R06.83 Snoring; R09.02 Hypoxemia; Z87.891 Personal history of nicotine dependence; Z20.822 Contact with and (suspected) exposure to COVID-19; Z11.52 Encounter for screening for COVID-19
CPT/HCPCS: 32555; 36415; 70450; 71045; 80048; 80053; 81001; 82945; 83605; 83615; 83735; 83986; 84157; 85025; 85610; 85730; 86140; 87040; 87070; 87075; 87086; 87181; 87205; 87449; 87635; 87637; 87641; 87899; 88108; 88305; 92611; 94640; 94762; 96360; 96365; 99284; 99285; A9270; J0456; J0696; J1650; J3370; J7030